=== PATIENT | female | born 1975 | race Caucasian/White ===

== ENCOUNTER 2021-07-18 18:32 | Inpatient (IN) | payer MEDICAID, OTHER, SELFPAY ==
--- NOTE | 2021-07-18 19:10 | ED_ITS ---
HPI - Psych General Chief Complaint: Psychiatric Symptoms Stated Complaint: crisis suicidal Time Seen by Provider: 07/18/21 19:10 Source: patient Mode of arrival: ambulatory Limitations: no limitations History of Present Illness MD complaint: suicidal ideation and feels depressed Onset (ago): week(s) Duration: getting worse History of same: Yes Relieving factors: none Exacerbating factors: none Context: other (states she went for a ketamine infusion [place] today that made it worse) Associated psychiatric symptoms: depression and suicidal ideation Associated symptoms: denies other symptoms Treatments prior to arrival: none and other (Ketamine infusion in [place]) If self harm: admits thoughts of self harm Related Data Home Medications Medication Instructions Recorded Confirmed dextroamphetamine 5 mg tablet 7.5 mg PO QAM 07/18/21 07/18/21 duloxetine 30 mg capsule,delayed 30 mg PO DAILY 07/18/21 07/18/21 release lithium carbonate 150 mg capsule 150 mg PO BEDTIME 07/18/21 07/18/21 propranolol 10 mg tablet 1 tab PO BID PRN 07/18/21 07/18/21 trazodone 50 mg tablet 100 mg PO BEDTIME 07/18/21 07/18/21 vortioxetine 20 mg tablet 1 tab PO DAILY 07/18/21 07/18/21 (Trintellix) Allergies Allergy/AdvReac Type Severity Reaction Status Date / Time nortriptyline [NORTRIPTYLINE] Allergy Unknown RASH Unverified 06/10/20 16:45 Review of Systems Review of Systems: Constitutional : No Fever, No Chills ENT/Mouth : No Ear Pain, No Nasal Congestion, No sore throat Eyes: No Eye Pain, No Swelling, No Redness Cardiovascular : No Chest Pain, No SOB Respiratory : No Cough, No Sputum, No Dyspnea Gastrointestinal : No Nausea, No Vomiting, No Diarrhea, No Hematochezia, No Melena Genitourinary : No Dysuria, No Urinary Frequency, No Hematuria Musculoskeletal : No Myalgias Skin : No Skin Lesions, No rash Neuro : No Weakness, No Numbness, No Paresthesias, No Dizziness, No Headache Psych : positive Anxiety, positive Depression, positive SI no HI Heme/Lymph: No Lymphadenopathy Endocrine : No Polyuria, No Polydipsia All other systems reviewed and are negative PMFSH Social History Social History Advance Directives: No Advance Directives Information Provided: No Patient : No Physical Exam Vital Signs: Vital Signs: Last Vital Signs Temp 99 F 07/18/21 19:17 Pulse 94 07/18/21 19:17 Resp 19 07/18/21 19:17 BP 116/90 H 07/18/21 19:17 Pulse Ox 99 07/18/21 19:17 Body Mass Index 22.6 Appearance: Alert. Oriented X3. No acute distress. Eyes: Pupils equal, round and reactive to light. ENT: Pharynx normal. Neck: Normal inspection. Neck supple. CVS: Normal heart rate and rhythm. Pulses normal. Respiratory: No respiratory distress. Breath sounds normal. Abdomen: Soft and nontender. Skin: Skin warm and dry. Normal skin color. Normal skin turgor. Extremities: No lower extremity edema. No calf ttp Neuro: Oriented X 3. No motor deficit. No sensory deficit. CN 2-12 intact Psych: anxious agitated, reports SI Course Reevaluation(s) Reevaluation #1: Physician observation started at 2024. Patient placed in physician observation because the patient needed more time for medication to work and to see N and be evaluated for the need for psych admission. At the time observation was started the patient's vitals were stable, patient is alert and oriented cooperative Neuro: nonfocal, CV RRR, Lungs clear MDM - Psych MDM Narrative Medical decision making narrative: 46 yo female here with depression and SI - will need labs and N consult, she denies medical complaints Lab Data Result diagrams: 07/18/21 19:58 07/18/21 19:58 Labs: Lab Results 07/18/21 07/18/21 07/18/21 Range/Units 19:33 19:34 19:34 WBC (4.8-10.8) X10*3/uL RBC (4.20-5.50) X10*6/uL Hgb (12.0-16.0) g/dl Hct (37-47) % MCV (80-98) fL MCH (27.0-33.0) pg MCHC (31.0-35.0) g/dl RDW (11.0-16.0) % Plt Count (160-400) X10*3/uL MPV (9.4-12.3) fL Immature Gran % (Auto) (0.0-0.4) % Neut % (Auto) (45-73) % Lymph % (Auto) (20-40) % [place] % (Auto) (2-11) % Eos % (Auto) (0-4) % Baso % (Auto) (0-2) % Lymph # (Auto) (1.2-4.9) X10*3/uL [place] # (Auto) (0.1-1.2) X10*3/uL Eos # (Auto) (0.0-0.4) X10*3/uL Baso # (Auto) (0.0-0.2) X10*3/uL Abs Immat Gran (auto) (0.00-0.03) X10*3/uL Absolute Neuts (auto) (2.0-8.3) X10*3/uL Absolute Nucleated RBC (0.0-0.012) X10*3/uL Nucleated RBC % (auto) (0.0-0.2) /100WBC Sodium (135-145) mmol/L Potassium (3.3-5.1) mmol/L Chloride (96-108) mmol/L Carbon Dioxide (22-29) mmol/L Anion Gap (12-20) BUN (9-16) mg/dL Creatinine (0.5-1.4) mg/dL Estim Creat Clear Calc Estimated GFR Random Glucose (60-115) mg/dL Calcium (8.4-10.2) mg/dL Magnesium (1.6-2.6) mg/dL Total Bilirubin (0.0-1.0) mg/dL Direct Bilirubin (0.0-0.5) mg/dL AST (5-31) U/L ALT (0-31) U/L Alkaline Phosphatase (39-117) U/L Total Protein (6.5-8.0) g/dL Albumin (3.5-5.0) g/dL Urine Color Urine Appearance Urine pH (5.0-8.0) Ur Specific [place] (1.005-1.025) Urine Protein (NEG-TRACE) MG/DL Urine Glucose (UA) (NEG) MG/DL Urine Ketones (NEG) MG/DL Urine Blood (NEG) Urine Nitrite (NEG) Ur Leukocyte Esterase (NEG) Urine RBC (0) /HPF Urine WBC (0-4) /HPF Ur Squamous Epith Cells /LPF Urine Bacteria /LPF Urine Test NEGATIVE (NEGATIVE) Urine Opiates Screen Not Detected (Not Detect) Urine Fentanyl Screen Not Detected (Not Detect) Ur Barbiturates Screen Not Detected (Not Detect) Ur Phencyclidine Scrn Not Detected (Not Detect) Ur Amphetamines Screen POSITIVE H (Not Detect) U Benzodiazepines Scrn POSITIVE H (Not Detect) Sundown (0.60-1.20) mmol/L Urine Cocaine Screen Not Detected (Not Detect) U Marijuana (THC) Screen Not Detected (Not Detect) Ethyl Alcohol mg/dL COVID-19 ([facility]) Negative (Negative) COVID-19 Clin Com See Note 07/18/21 07/18/21 07/18/21 Range/Units 19:34 19:58 19:58 WBC 10.6 (4.8-10.8) X10*3/uL RBC 4.14 L (4.20-5.50) X10*6/uL Hgb 13.6 (12.0-16.0) g/dl Hct 39.3 (37-47) % MCV 94.9 (80-98) fL MCH 32.9 (27.0-33.0) pg MCHC 34.6 (31.0-35.0) g/dl RDW 11.5 (11.0-16.0) % Plt Count 275 (160-400) X10*3/uL MPV 9.2 L (9.4-12.3) fL Immature Gran % (Auto) 0.3 (0.0-0.4) % Neut % (Auto) 73.4 H (45-73) % Lymph % (Auto) 18.4 L (20-40) % [place] % (Auto) 7.0 (2-11) % Eos % (Auto) 0.5 (0-4) % Baso % (Auto) 0.4 (0-2) % Lymph # (Auto) 2.0 (1.2-4.9) X10*3/uL [place] # (Auto) 0.8 (0.1-1.2) X10*3/uL Eos # (Auto) 0.1 (0.0-0.4) X10*3/uL Baso # (Auto) 0.0 (0.0-0.2) X10*3/uL Abs Immat Gran (auto) 0.03 (0.00-0.03) X10*3/uL Absolute Neuts (auto) 7.8 (2.0-8.3) X10*3/uL Absolute Nucleated RBC 0.000 (0.0-0.012) X10*3/uL Nucleated RBC % (auto) 0.0 (0.0-0.2) /100WBC Sodium 135 (135-145) mmol/L Potassium 4.0 (3.3-5.1) mmol/L Chloride 104 (96-108) mmol/L Carbon Dioxide 21 L (22-29) mmol/L Anion Gap 14 (12-20) BUN 10 (9-16) mg/dL Creatinine 0.98 (0.5-1.4) mg/dL Estim Creat Clear Calc 54.1 Estimated GFR > 60 Random Glucose 125 H (60-115) mg/dL Calcium 9.2 (8.4-10.2) mg/dL Magnesium 2.3 (1.6-2.6) mg/dL Total Bilirubin 0.3 (0.0-1.0) mg/dL Direct Bilirubin < 0.2 (0.0-0.5) mg/dL AST 17 (5-31) U/L ALT 11 (0-31) U/L Alkaline Phosphatase 70 (39-117) U/L Total Protein 6.9 (6.5-8.0) g/dL Albumin 4.3 (3.5-5.0) g/dL Urine Color YELLOW Urine Appearance CLEAR Urine pH 6.0 (5.0-8.0) Ur Specific [place] 1.020 (1.005-1.025) Urine Protein NEG (NEG-TRACE) MG/DL Urine Glucose (UA) NEG (NEG) MG/DL Urine Ketones NEG (NEG) MG/DL Urine Blood 1+ H (NEG) Urine Nitrite NEG (NEG) Ur Leukocyte Esterase NEG (NEG) Urine RBC 1-4 (0) /HPF Urine WBC 0 (0-4) /HPF Ur Squamous Epith Cells 1+ /LPF Urine Bacteria 1+ /LPF Urine Test (NEGATIVE) Urine Opiates Screen (Not Detect) Urine Fentanyl Screen (Not Detect) Ur Barbiturates Screen (Not Detect) Ur Phencyclidine Scrn (Not Detect) Ur Amphetamines Screen (Not Detect) U Benzodiazepines Scrn (Not Detect) Sundown (0.60-1.20) mmol/L Urine Cocaine Screen (Not Detect) U Marijuana (THC) Screen (Not Detect) Ethyl Alcohol mg/dL COVID-19 ([facility]) (Negative) COVID-19 Clin Com 07/18/21 07/18/21 Range/Units 19:58 19:58 WBC (4.8-10.8) X10*3/uL RBC (4.20-5.50) X10*6/uL Hgb (12.0-16.0) g/dl Hct (37-47) % MCV (80-98) fL MCH (27.0-33.0) pg MCHC (31.0-35.0) g/dl RDW (11.0-16.0) % Plt Count (160-400) X10*3/uL MPV (9.4-12.3) fL Immature Gran % (Auto) (0.0-0.4) % Neut % (Auto) (45-73) % Lymph % (Auto) (20-40) % [place] % (Auto) (2-11) % Eos % (Auto) (0-4) % Baso % (Auto) (0-2) % Lymph # (Auto) (1.2-4.9) X10*3/uL [place] # (Auto) (0.1-1.2) X10*3/uL Eos # (Auto) (0.0-0.4) X10*3/uL Baso # (Auto) (0.0-0.2) X10*3/uL Abs Immat Gran (auto) (0.00-0.03) X10*3/uL Absolute Neuts (auto) (2.0-8.3) X10*3/uL Absolute Nucleated RBC (0.0-0.012) X10*3/uL Nucleated RBC % (auto) (0.0-0.2) /100WBC Sodium (135-145) mmol/L Potassium (3.3-5.1) mmol/L Chloride (96-108) mmol/L Carbon Dioxide (22-29) mmol/L Anion Gap (12-20) BUN (9-16) mg/dL Creatinine (0.5-1.4) mg/dL Estim Creat Clear Calc Estimated GFR Random Glucose (60-115) mg/dL Calcium (8.4-10.2) mg/dL Magnesium (1.6-2.6) mg/dL Total Bilirubin (0.0-1.0) mg/dL Direct Bilirubin (0.0-0.5) mg/dL AST (5-31) U/L ALT (0-31) U/L Alkaline Phosphatase (39-117) U/L Total Protein (6.5-8.0) g/dL Albumin (3.5-5.0) g/dL Urine Color Urine Appearance Urine pH (5.0-8.0) Ur Specific [place] (1.005-1.025) Urine Protein (NEG-TRACE) MG/DL Urine Glucose (UA) (NEG) MG/DL Urine Ketones (NEG) MG/DL Urine Blood (NEG) Urine Nitrite (NEG) Ur Leukocyte Esterase (NEG) Urine RBC (0) /HPF Urine WBC (0-4) /HPF Ur Squamous Epith Cells /LPF Urine Bacteria /LPF Urine Test (NEGATIVE) Urine Opiates Screen (Not Detect) Urine Fentanyl Screen (Not Detect) Ur Barbiturates Screen (Not Detect) Ur Phencyclidine Scrn (Not Detect) Ur Amphetamines Screen (Not Detect) U Benzodiazepines Scrn (Not Detect) Sundown < 0.10 L (0.60-1.20) mmol/L Urine Cocaine Screen (Not Detect) U Marijuana (THC) Screen (Not Detect) Ethyl Alcohol < 10 mg/dL COVID-19 ([facility]) (Negative) COVID-19 Clin Com Discharge Plan Discharge Clinical Impression: Depression Qualifiers: Depression Type: unspecified Qualified Code(s): F32.A - Depression, unspecified Prescriptions: No Action dextroamphetamine 5 mg tablet 7.5 mg PO QAM RF: 0 trazodone 50 mg tablet 100 mg PO BEDTIME RF: 0 lithium carbonate 150 mg capsule 150 mg PO BEDTIME RF: 0 propranolol 10 mg tablet 1 tab PO BID PRN (Reason: Anxiety) RF: 0 duloxetine 30 mg capsule,delayed release(DR/EC) 30 mg PO DAILY RF: 0 Trintellix 20 mg tablet 1 tab PO DAILY RF: 0
[2021-07-18 19:17] VITALS: BP 116/90; PULSE 94; RESP 19; TEMP 37.2; O2SAT 99; BMI 22.6
[2021-07-18 19:48] LABS: Appearance Urine CLEAR; Color Urine YELLOW; Glucose Urine UA NEG (NEG); Leukocyte Esterase Urine NEG (NEG); Nitrite Urine NEG (NEG); UACC Culture Trigger NO; Urine Blood 1+ (NEG); Urine Ketones NEG (NEG); Urine Protein NEG (NEG-TRACE)
[2021-07-18 19:51] LABS: UPreg QC Valid YES; Urine Pregnancy NEGATIVE (NEGATIVE)
[2021-07-18 19:57] LABS: Bacteria Urine 1+ /LPF; Squamous Epithelial Cell Urine 1+ /LPF; WBC Urine 0 /HPF (0-4)
[2021-07-18 20:02] LABS: Amphetamine Screen Urine POSITIVE (Not Detect); Barbiturates, Urine Not Detected (Not Detect); Benzodiazepines Screen Urine POSITIVE (Not Detect); COVID-19 Test Negative (Negative); Cannabinoid Screen Urine Not Detected (Not Detect); Cocaine Screen Urine Not Detected (Not Detect); Fentanyl, urine Not Detected (Not Detect); IDNOW Serial# 08D9AD1C; Opiate Screen Urine Not Detected (Not Detect); Phencyclidine Screen Urine Not Detected (Not Detect)
[2021-07-18 20:03] LABS: MANUAL DIFF FLAG NO
[2021-07-18 20:05] LABS: Basophils Percent Auto 0.4 % (0-2); Eosinophils Absolute Auto 0.1 X10*3/uL (0.0-0.4); Eosinophils Percent Auto 0.5 % (0-4); Hematocrit 39.3 % (37-47); Hemoglobin 13.6 g/dl (12.0-16.0); Imm Gran Abs Auto 0.03 X10*3/uL (0.00-0.03); Imm Gran Pct Auto 0.3 % (0.0-0.4); Lymphocytes Percent Auto 18.4 % (20-40); Mean Corpuscular HGB Conc 34.6 g/dl (31.0-35.0); Mean Corpuscular Hemoglobin 32.9 pg (27.0-33.0); Mean Corpuscular Volume 94.9 fL (80-98); Mean Platelet Volume 9.2 fL (9.4-12.3); Monocytes Absolute Auto 0.8 X10*3/uL (0.1-1.2); Neutrophils Absolute Auto 7.8 X10*3/uL (2.0-8.3); Neutrophils Percent Auto 73.4 % (45-73); Platelet Count 275 X10*3/uL (160-400); Red Blood Count 4.14 X10*6/uL (4.20-5.50); Red Cell Distribution Width 11.5 % (11.0-16.0); White Blood Count 10.6 X10*3/uL (4.8-10.8)
[2021-07-18 20:15] LABS: Ethanol < 10 mg/dL; Lithium < 0.10 mmol/L (0.60-1.20)
[2021-07-18 20:19] LABS: Alanine Aminotransferase 11 U/L (0-31); Albumin Level 4.3 g/dL (3.5-5.0); Alkaline Phosphatase 70 U/L (39-117); Anion Gap 14 (12-20); Aspartate Amino Transferase 17 U/L (5-31); Bilirubin Direct < 0.2 mg/dL (0.0-0.5); Bilirubin Total 0.3 mg/dL (0.0-1.0); Blood Urea Nitrogen 10 mg/dL (9-16); Calcium 9.2 mg/dL (8.4-10.2); Carbon Dioxide 21 mmol/L (22-29); Chloride 104 mmol/L (96-108); Creatinine Clr Calc Pharmacy 54.1; Estimated Glomerular Filt Rate > 60; Glucose Random 125 mg/dL (60-115); Magnesium 2.3 mg/dL (1.6-2.6); Sodium 135 mmol/L (135-145); Total Protein 6.9 g/dL (6.5-8.0)
[2021-07-18 20:39] LABS: Thyroid Stimulating Hormone 1.98 uIU/mL (0.32-4.0)
[2021-07-18] MEDS: traZODone HCL 100 MG TABLET PO (21:25)
[2021-07-18] MEDS: Lithium Carbonate 300 MG TABLET 150 MG PO (21:25)
[2021-07-19 02:11] VITALS: BP 125/84; PULSE 109; RESP 17; TEMP 36.8; O2SAT 98
--- NOTE | 2021-07-19 04:44 | PC.NURSE ---
Patient is currently appears sleeping, mood flat, behavior non concerning at this time, medication compliant here, [place] was <0.10, compliant with N evaluation, deposition section 12 inpatient bed search, VSS, will continue to monitor.
[2021-07-19] MEDS: clonazePAM 0.5 MG TABLET PO (04:55)
--- NOTE | 2021-07-19 08:31 | PC.NURSE ---
Pt waking, seen curled in position. This RN to room. Pt able to hold conversation, states she's hungry. Also stating that she wants only to go [facility]. This RN giving patient update that CARE team thinks it's likely she'll go to [facility] but that plan is not fully complete. Breakfast tray brought. Pt also looking through snacks brought by Mom which are in bag in laundry room. Pt is calm. States that she still feels suicidal.
[2021-07-19 09:11] VITALS: BP 120/81; PULSE 81; RESP 15; O2SAT 99
--- NOTE | 2021-07-19 09:11 | PC.NURSE ---
Pt has not eaten. States she'll try to eat so she doesn't take am meds on empty stomach.
--- NOTE | 2021-07-19 09:12 | PC.NURSE ---
Pt also requesting more klonapin because she feels like i'm about to freak out . Radha [employer] MANAGER aware and will order standing PRN med.
[2021-07-19] MEDS: DULoxetine HCl 30 MG CAPSULE.DR PO (09:26)
[2021-07-19] MEDS: Vortioxetine Hydrobromide 20 MG TABLET PO (09:27)
[2021-07-19] MEDS: Dextroamphetamine Sulfate 5 MG TABLET 7.5 MG PO (09:28)
[2021-07-19] MEDS: LORazepam 1 MG TABLET PO ×2 (09:45→15:40)
--- NOTE | 2021-07-19 10:33 | PC.NURSE ---
Pt has been resting queitly in room since ZACH khalil. This RN telling her that she's accepted on [facility] and states she's relieved.
--- NOTE | 2021-07-19 15:15 | PC.NURSE ---
KAYCEE to KAYCEE hobson on [facility]
--- NOTE | 2021-07-19 15:24 | PC.NURSE ---
Pt has been crying in her room. States she's been unable to cry for so long and is relieved to be crying. Talked to this RN for a long time about many changes recently and her sense of failing . Is aware that she'll go to [facility] soon.
--- NOTE | 2021-07-19 15:33 | ECG_ITS ---
Test Reason : qtc prolongation Blood Pressure : / mmHG Vent. Rate : 075 BPM Atrial Rate : 075 BPM P-R Int : 100 ms QRS Dur : 108 ms QT Int : 376 ms P-R-T Axes : 039 067 048 degrees QTc Int : 419 ms Sinus rhythm with short IN Otherwise normal ECG When compared with ECG of 12-JUL-2019 10:20, No significant change was found Referred By: Mavis Nowak Electronically Signed By:RENA ROBERTSON MD
[2021-07-19 18:00] VITALS: BP 118/92; PULSE 90; TEMP 37.2
--- NOTE | 2021-07-19 18:02 | PC.ADMIT ---
Pt is a 46 year female who presents to [facility] from [facility] at approx 1600 on a cv status. Pt is covid -. Utox+ for benzos and amphetamines. Pt has a therapist, psychiatrists and a PCP provider. Pt mentioned during admission just tried ketamine and it did not go well . Pt mentioned that she ended a new relationship and ended a new job. per chart review, pt presented to [facility] secondary to endorsing SI with plan to cut herself. Pt denied SI/HI/VH/AH during admit. Pt reported poor sleep and coping skills. Pt mentioned that she came into the hospital to see DR. Post and because she had thoughts that she might kill herself if she did not come into the hospital. Pt is diagnosed with major depressive disorder, recurrent episode, severe and borderline personality disorder. Pt denied having any trauma hx. Provider was called and notified of admission. Start treatment plan and monitor for safety.
[2021-07-19] MEDS: Lithium Carbonate 300 MG TABLET 150 MG PO (20:52)
[2021-07-19] MEDS: traZODone HCL 50 MG TABLET 150 MG PO (20:52)
[2021-07-20 06:00] VITALS: BP 99/54; PULSE 70; TEMP 36.2; O2SAT 98
[2021-07-20] MEDS: clonazePAM 0.5 MG TABLET PO (09:37)
[2021-07-20] MEDS: Dextroamphetamine Sulfate 5 MG TABLET 7.5 MG PO (09:40)
[2021-07-20] MEDS: DULoxetine HCl 30 MG CAPSULE.DR PO (10:25)
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
[2021-07-20 13:01] LABS: Estimated Average Glucose 97 mg/dL
[2021-07-20 13:02] LABS: Cholesterol 191 mg/dL; HDL Cholesterol 47 mg/dL; LDL Cholesterol Calculated 112 mg/dl; Triglycerides 160 mg/dL
[2021-07-20] MEDS: Vortioxetine Hydrobromide 20 MG TABLET PO (13:23)
[2021-07-20 13:43] LABS: Folate > 20.0 ng/mL (> or = 4.0); Vitamin B12 534 pg/mL (200-900)
[2021-07-20 18:00] VITALS: BP 111/64; PULSE 72
[2021-07-20] MEDS: Lithium Carbonate 300 MG TABLET 150 MG PO (21:10)
[2021-07-20] MEDS: hydrOXYzine HCL 25 MG TABLET PO (21:11)
[2021-07-21] MEDS: traZODone HCL 50 MG TABLET 150 MG PO ×2 (02:26→21:04)
[2021-07-21] MEDS: clonazePAM 0.5 MG TABLET PO (08:22)
[2021-07-21] MEDS: Dextroamphetamine Sulfate 5 MG TABLET 7.5 MG PO (11:09)
[2021-07-21] MEDS: DULoxetine HCl 30 MG CAPSULE.DR PO (11:09)
[2021-07-21] MEDS: Vortioxetine Hydrobromide 20 MG TABLET PO (11:09)
[2021-07-21 11:20] VITALS: BP 98/62; PULSE 95; RESP 18; TEMP 36.5; O2SAT 99
--- NOTE | 2021-07-21 13:54 | P.PNPSI_ITS ---
Subjective Subjective Date of Service: 07/21/21 Reason For Visit: depression, SI Interim History: met with patient and her mother Melissa (who is a therapist) pt remains severely anxious, plagued by worry about medications, whether she'll get better. Passive SI no intent or plans. Pt showed magazine writer her copious notes of past medication trials. Pt and mother both report she seemed to be doing better in winter 2020 on Lamictal 50mg, cymbalta 30mg (was 60mg but caused night sweats), some ativan...she got into a relationship, felt good and only got depressed and suicidal when relationship ended this past May. magazine writer and family discussed medication options going forward however, patient could not stop anxiously vacillating between decisions, wanting to hear numerous times why this med instead of that one, repeating questions about this side- effect, lot's of what if...Pt agreed to restart and titrate Lamictal. Gasket Supervisor agreed to confer with her outpt provider dr. Garner. magazine writer considering Lexapro, titrating to higher doses and getting off cymbalta/vortioxetine Both Pt and mother both acknowledged that patients OCD/ANANDA interfered with making medications decisions and that this will need to be addressed for med management is possible. Mental Status Exam Mental Status Exam Narrative: Pt is alert and oriented; behavior is cooperative; dressed in casual attire with unkempt hair but adequate hygiene; mood is described as depressed and anxious with anxious affect, intermittently tearful; eye contact appropriate; Speech is normal rate, volume and prosody and not pressured; no psychomotor agitation/retardation present; thought process is organized, linear and goal directed but gets sidelined by relentless worries such as what medication to take...? Did she make the right decision about whatever...Thought content is on tx; persevarates on various worries; however, TC is pertinent to relevant topics and without any delusional content, paranoid ideations or grandi osity; SI, currently passive; no HI; No AVH and no evidence of perceptual disturbance. ?Patients insight and judgment are impaired. Diagnostics Vital Signs (24Hr): Vital Signs - 24 hr 07/20/21 18:00 07/21/21 11:20 Temperature 97.7 F Pulse Rate 72 95 Respiratory Rate 18 Blood Pressure 111/64 98/62 Pulse Oximetry 99 Body Mass Index 22.6 Labs Results: 07/18/21 19:58 07/18/21 19:58 Labs: Laboratory Results - last 48 hr 07/20/21 07/20/21 07/20/21 12:37 12:37 12:37 Estimat Average Glucose 97 Hemoglobin A1c % 5.0 Triglycerides 160 Cholesterol 191 LDL Cholesterol, Calc 112 HDL Cholesterol 47 Vitamin B12 534 Folate > 20.0 Free T4 1.50 Medications Medications Current Medications Acetaminophen (Acetaminophen 325 Mg Tablet) 650 mg PO Q6H PRN PRN Reason: Headache/Pain Mild Scale (1-3) Al Hydroxide/Mg Hydroxide (Magnesium Hydrox/Alum Hydrox 30 Ml Oral.Susp) 30 ml PO Q6H PRN PRN Reason: Heartburn/Nausea Clonazepam (Clonazepam 0.5 Mg Tablet) 0.5 mg PO BID PRN PRN Reason: Anxiety Last Admin: 07/21/21 08:22 Dose: 0.5 mg Documented by: Dextroamphetamine Sulfate (Dextroamphetamine Sulfate 5 Mg Tablet) 7.5 mg PO DAILY [facility] Last Admin: 07/21/21 11:09 Dose: 7.5 mg Documented by: Duloxetine HCl (Duloxetine Hcl 30 Mg Capsule.Dr) 30 mg PO DAILY [facility] Last Admin: 07/21/21 11:09 Dose: 30 mg Documented by: Hydroxyzine HCl (Hydroxyzine Hcl 25 Mg Tablet) 25 mg PO BEDTIME PRN PRN Reason: Anxiety Last Admin: 07/20/21 21:11 Dose: 25 mg Documented by: Lamotrigine (Lamotrigine 25 Mg Tablet) 25 mg PO DAILY [facility] [place] Carbonate ([place] Carbonate 300 Mg Tablet) 150 mg PO BEDTIME [facility] Last Admin: 07/20/21 21:10 Dose: 150 mg Documented by: Magnesium Hydroxide (Milk Of Magnesia 30 Ml Oral.Susp) 30 ml PO DAILY PRN PRN Reason: Constipation Propranolol HCl (Propranolol Hcl 10 Mg Tablet) 10 mg PO BID PRN; Protocol PRN Reason: Anxiety Trazodone HCl (Trazodone Hcl 50 Mg Tablet) 150 mg PO BEDTIME [facility] Last Admin: 07/21/21 02:26 Dose: 150 mg Documented by: Vortioxetine (Vortioxetine Hydrobromide 20 Mg Tablet) 20 mg PO DAILY [facility] Last Admin: 07/21/21 11:09 Dose: 20 mg Documented by: Allergies Allergies Allergy/AdvReac Type Severity Reaction Status Date / Time nortriptyline [NORTRIPTYLINE] Allergy Unknown RASH Verified 07/20/21 10:56 Assessment & Plan Assessment & Plan (1) ANANDA (generalized anxiety disorder): Status: Acute Code(s): F41.1 - Generalized anxiety disorder (2) OCD (obsessive compulsive disorder): Status: Acute Code(s): F42.9 - Obsessive-compulsive disorder, unspecified (3) MDD (major depressive disorder), recurrent episode, severe: Status: Acute Code(s): F33.2 - Major depressive disorder, recurrent severe without psychotic features Assessment and Plan: IMPRESSION: Patient is a bright, resilient 46-year-old female with history of ANANDA, OCD, depression intermittent SI who presents for worsening anxiety depression and SI. Patient is currently to tortured by endless worrying which causing her much anguish and difficulty when trying to make a decision.? She is currently depressed with passive SI however expresses that she got closer than ever before to attempting suicide.? Patient is open to medication management and also has insight to know that her OCD/anxiety interferes with her ability to make decisions and to tolerate medications long enough to get to a therapeutic dose and duration.? However this insight is often dwarfed by her powerful anxious feelings, clearly evident in discussions.? Hospital Course/reasoning: -patient remains tormented by severe anxiety which has triggered depression and suicidality.? Patient perseverates on how she cannot live this way and is struggling to Hope that should get better, sometimes wondering if suicide will be the only way out of this trap her anxiety places in; she does not want to kill herself but cannot envision living with this constant anxiety.? That said she is willing to engage in both therapy and medication management strategy -Both Pt and mother both acknowledged that patients OCD/ANANDA interfered with making medications decisions and that this will need to be addressed for med management is possible.? PLAN: Patient on CV Q 15 minutes checks for safety -Start lamictal Pt agreed to restart and titrate Lamictal. Gasket Supervisor agreed to confer with her outpt provider dr. Garner. Considering Lexapro, titrating to higher doses and getting off cymbalta/vortioxetine? I spent minutes with the patient and/or on the patient floor today, greater than?50% of which was spent counseling/coordinating care. Reason for contiued inpatient stay Substantial Risk for: inability to function and med/psych decompensation
[2021-07-21] MEDS: clonazePAM 0.5 MG TABLET 0.25 MG PO (14:31)
[2021-07-21] MEDS: lamoTRIgine 25 MG TABLET PO (14:32)
[2021-07-21 19:50] VITALS: BP 104/64; PULSE 70; RESP 16; TEMP 36.1; O2SAT 98
[2021-07-21] MEDS: Lithium Carbonate 300 MG TABLET 150 MG PO (21:05)
[2021-07-21] MEDS: hydrOXYzine HCL 25 MG TABLET PO (21:05)
[2021-07-22] MEDS: clonazePAM 0.5 MG TABLET 0.25 MG PO ×2 (08:46→15:21)
[2021-07-22] MEDS: lamoTRIgine 25 MG TABLET PO (09:17)
[2021-07-22] MEDS: Dextroamphetamine Sulfate 5 MG TABLET 7.5 MG PO (09:17)
--- NOTE | 2021-07-22 10:13 | HO.PSYCHPN ---
Subjective Subjective Date of Service: 07/22/21 Reason For Visit: depression, SI Interim History: pt seen on 07/22 ghost writer discussed case with patients outpt provider, Dr. Garner who does not think pt was actually doing better on med regiment discussed, but only really improved when she got into a relationship; he agrees with plan to start her on Lexapro, lamictal, and discontinuing vortioxetine, cymbalta. Discussed this with patient who agrees that it's likely true, she got better not do to meds (which are mostly below therapetuic levels) but because of being in a relationship. She agrees with plan, though she is nearly derailed with ambivalence. Mental Status Exam Mental Status Exam Narrative: Pt is alert and oriented; behavior is cooperative; dressed in casual attire with unkempt hair but adequate hygiene; mood is described as depressed and anxious with anxious affect, intermittently tearful; eye contact appropriate; Speech is normal rate, volume and prosody and not pressured; no psychomotor agitation/retardation present; thought process is organized, linear and goal directed but gets sidelined by relentless worries such as what medication to take...? Did she make the right decision about whatever...Thought content is on tx;? persevarates on various worries; however, TC is pertinent to relevant topics and without any delusional content, paranoid ideations or grandiosity; SI, currently passive; no HI; No AVH and no evidence of perceptual disturbance. ?Patients insight and judgment are impaired. Diagnostics Vital Signs (24Hr): Vital Signs - 24 hr 07/21/21 11:20 07/21/21 19:50 Temperature 97.7 F 97.0 F Pulse Rate 95 70 Respiratory Rate 18 16 Blood Pressure 98/62 104/64 Pulse Oximetry 99 98 Body Mass Index 22.6 Labs Results: 07/18/21 19:58 07/18/21 19:58 Labs: Laboratory Results - last 48 hr 07/20/21 07/20/21 07/20/21 12:37 12:37 12:37 Estimat Average Glucose 97 Hemoglobin A1c % 5.0 Triglycerides 160 Cholesterol 191 LDL Cholesterol, Calc 112 HDL Cholesterol 47 Vitamin B12 534 Folate > 20.0 Free T4 1.50 Medications Medications Current Medications Acetaminophen (Acetaminophen 325 Mg Tablet) 650 mg PO Q6H PRN PRN Reason: Headache/Pain Mild Scale (1-3) Al Hydroxide/Mg Hydroxide (Magnesium Hydrox/Alum Hydrox 30 Ml Oral.Susp) 30 ml PO Q6H PRN PRN Reason: Heartburn/Nausea Clonazepam (Clonazepam 0.5 Mg Tablet) 0.25 mg PO TID [facility] Last Admin: 07/22/21 08:46 Dose: 0.25 mg Documented by: Dextroamphetamine Sulfate (Dextroamphetamine Sulfate 5 Mg Tablet) 7.5 mg PO DAILY [facility] Last Admin: 07/22/21 09:17 Dose: 7.5 mg Documented by: Duloxetine HCl (Duloxetine Hcl 30 Mg Capsule.Dr) 30 mg PO DAILY [facility] Last Admin: 07/21/21 11:09 Dose: 30 mg Documented by: Hydroxyzine HCl (Hydroxyzine Hcl 25 Mg Tablet) 25 mg PO BEDTIME [facility] Last Admin: 07/21/21 21:05 Dose: 25 mg Documented by: Lamotrigine (Lamotrigine 25 Mg Tablet) 25 mg PO DAILY [facility] Last Admin: 07/22/21 09:17 Dose: 25 mg Documented by: [place] Carbonate ([place] Carbonate 300 Mg Tablet) 150 mg PO BEDTIME [facility] Last Admin: 07/21/21 21:05 Dose: 150 mg Documented by: Magnesium Hydroxide (Milk Of Magnesia 30 Ml Oral.Susp) 30 ml PO DAILY PRN PRN Reason: Constipation Propranolol HCl (Propranolol Hcl 10 Mg Tablet) 10 mg PO BID PRN; Protocol PRN Reason: Anxiety Trazodone HCl (Trazodone Hcl 50 Mg Tablet) 150 mg PO BEDTIME [facility] Last Admin: 07/21/21 21:04 Dose: 150 mg Documented by: Vortioxetine (Vortioxetine Hydrobromide 20 Mg Tablet) 20 mg PO DAILY [facility] Last Admin: 07/21/21 11:09 Dose: 20 mg Documented by: Allergies Allergies Allergy/AdvReac Type Severity Reaction Status Date / Time nortriptyline [NORTRIPTYLINE] Allergy Unknown RASH Verified 07/20/21 10:56 Assessment & Plan Assessment & Plan (1) ANANDA (generalized anxiety disorder): Status: Acute Code(s): F41.1 - Generalized anxiety disorder (2) OCD (obsessive compulsive disorder): Status: Acute Code(s): F42.9 - Obsessive-compulsive disorder, unspecified (3) MDD (major depressive disorder), recurrent episode, severe: Status: Acute Code(s): F33.2 - Major depressive disorder, recurrent severe without psychotic features Assessment and Plan: IMPRESSION: Patient is a bright, resilient 46-year-old female with history of ANANDA, OCD, depression intermittent SI who presents for worsening anxiety depression and SI. Patient is currently to tortured by endless worrying which causing her much anguish and difficulty when trying to make a decision. She is currently depressed with passive SI however expresses that she got closer than ever before to attempting suicide. Patient is open to medication management and also has insight to know that her OCD/anxiety interferes with her ability to make decisions and to tolerate medications long enough to get to a therapeutic dose and duration. However this insight is often dwarfed by her powerful anxious feelings, clearly evident in discussions. Hospital Course/reasoning: -patient remains tormented by severe anxiety which has triggered depression and suicidality. Patient perseverates on how she cannot live this way and is struggling to Hope that should get better, sometimes wondering if suicide will be the only way out of this trap her anxiety places in; she does not want to kill herself but cannot envision living with this constant anxiety. That said she is willing to engage in both therapy and medication management strategy -Patient agrees to medication plan which is to get on Lexapro and see if she can tolerate a high dose to better address her OCD/ANANDA symptoms; will also titrate Lamictal since it helps with both depression and emotional lability. Will taper off Cymbalta and Trintellix; patient has traditionally had a hard time getting off Cymbalta so will taper it slowly while increasing Lexapro. Plan is to DC lithium PLAN: Patient on CV Q 15 minutes checks for safety START LEXAPRO 5 mg daily; Titrate to 10mg LOWER Cymbalta to 20 mg daily (down from 30) LOWER Trintellix to 5 MG daily (was on 10mg for a few months; only been on 20mg for week) Plan to DC lithium however will do that next week in order to minimize changes Clonazepam 0.25 mg p.r.n. for [id number]-de-wkwgwaue anxiety Clonazepam 0.5 mg p.r.n. for moderate to severe anxiety I spent minutes with the patient and/or on the patient floor today, greater than?50% of which was spent counseling/coordinating care. Reason for contiued inpatient stay Substantial Risk for: rapid decompensation and med/psych decompensation
[2021-07-22] MEDS: DULoxetine HCl 20 MG CAPSULE.DR PO (13:54)
[2021-07-22] MEDS: Escitalopram Oxalate 5 MG TABLET PO (15:01)
[2021-07-22] MEDS: Vortioxetine Hydrobromide 5 MG TABLET 10 MG PO (15:17)
[2021-07-22] MEDS: Vortioxetine Hydrobromide 10 MG TABLET PO (15:25)
[2021-07-22 20:16] VITALS: BP 115/67; PULSE 69; RESP 18; TEMP 36.5; O2SAT 100
[2021-07-22] MEDS: hydrOXYzine HCL 25 MG TABLET PO (20:22)
[2021-07-22] MEDS: Lithium Carbonate 300 MG TABLET 150 MG PO (20:22)
[2021-07-22] MEDS: traZODone HCL 50 MG TABLET 150 MG PO (20:22)
[2021-07-23 06:00] VITALS: BP 84/54; PULSE 58; RESP 16; TEMP 36.7; O2SAT 97
[2021-07-23] MEDS: Vortioxetine Hydrobromide 5 MG TABLET PO (09:12)
[2021-07-23] MEDS: Dextroamphetamine Sulfate 5 MG TABLET 7.5 MG PO (09:12)
[2021-07-23] MEDS: DULoxetine HCl 20 MG CAPSULE.DR PO (09:13)
[2021-07-23] MEDS: Escitalopram Oxalate 10 MG TABLET PO (09:13)
[2021-07-23] MEDS: lamoTRIgine 25 MG TABLET PO (09:13)
--- NOTE | 2021-07-23 09:30 | P.PNPSI_ITS ---
Subjective Subjective Date of Service: 07/23/21 Reason For Visit: depression, SI Subjective Notes: Conditional Voluntary Interim History: 07/22:met with patient and her mother Melissa (who is a therapist) pt remains severely anxious, plagued by worry about medications, whether she'll get better. Passive SI no intent or plans. Pt showed contract writer her copious notes of past medication trials. Pt and mother both report she seemed to be doing better in winter 2020 on Lamictal 50mg, cymbalta 30mg (was 60mg but caused night sweats), some ativan...she got into a relationship, felt good and only got depressed and suicidal when relationship ended this past May. contract writer and family discussed medication options going forward however, patient could not stop anxiously vacillating between decisions, wanting to hear numerous times why this med instead of that one, repeating questions about this side- effect, lot's of what if...Pt agreed to restart and titrate Lamictal. Linux Devops Engineer agreed to confer with her outpt provider dr. Garner. contract writer considering Lexapro, titrating to higher doses and getting off cymbalta/vortioxetine Both Pt and mother both acknowledged that patients OCD/ANANDA interfered with making medications decisions and that this will need to be addressed for med management is possible. 07/23: Perseverates re various meds. Identified OCD>> MDD. Showed me her detailed notes. Could not find her genomic profile. Medication Compliance: Yes Side effects from medications: No Review of Systems Acute medical concerns: No Review of Systems Review of Systems Constitutional : No Fever, No Chills ENT/Mouth : No Ear Pain, No Nasal Congestion, No sore throat Eyes: No Eye Pain, No Swelling, No Redness Cardiovascular : No Chest Pain, No SOB Respiratory : No Cough, No Sputum, No Dyspnea Gastrointestinal : No Nausea, No Vomiting, No Diarrhea, No Hematochezia, No Melena Genitourinary : No Dysuria, No Urinary Frequency, No Hematuria Musculoskeletal : No Myalgias Skin : No Skin Lesions, No rash Neuro : No Weakness, No Numbness, No Paresthesias, No Dizziness, No Headache Psych : positive Anxiety, positive Depression, positive SI no HI Heme/Lymph: No Lymphadenopathy Endocrine : No Polyuria, No Polydipsia All other systems reviewed and are negative Mental Status Exam Mental Status Exam Narrative: Pt is alert and oriented; behavior is cooperative; patient in anxious distress; dressed in casual attire with unkempt hair but adequate hygiene; mood is described as depressed and anxious with anxious affect, intermittently tearful, sometimes sobbing; eye contact appropriate; Speech is normal rate, volume and prosody and not pressured; no psychomotor agitation/retardation present; thought process is organized, linear and goal directed but gets sidelined by and less p erseveration on worries such as what medication to take... Did she make the right decision about substance such... Thought content is on tx; persevarates on various worries; overall pertinent to relevant topics and without any delusional content, paranoid ideations or grandiosity; SI, currently passive; no HI; No AVH and no evidence of perceptual disturbance. Patients insight and judgment are impaired. Diagnostics Vital Signs (24Hr): Vital Signs - 24 hr 07/22/21 20:16 07/23/21 06:00 Temperature 97.7 F 98.1 F Pulse Rate 69 58 Respiratory Rate 18 16 Blood Pressure 115/67 84/54 L Pulse Oximetry 100 97 Body Mass Index 22.6 Labs Results: 07/18/21 19:58 07/18/21 19:58 Medications Medications Current Medications Acetaminophen (Acetaminophen 325 Mg Tablet) 650 mg PO Q6H PRN PRN Reason: Headache/Pain Mild Scale (1-3) Al Hydroxide/Mg Hydroxide (Magnesium Hydrox/Alum Hydrox 30 Ml Oral.Susp) 30 ml PO Q6H PRN PRN Reason: Heartburn/Nausea Clonazepam (Clonazepam 0.5 Mg Tablet) 0.25 mg PO TID PRN PRN Reason: mild-moderate anxiety Last Admin: 07/22/21 15:21 Dose: 0.25 mg Documented by: Clonazepam (Clonazepam 0.5 Mg Tablet) 0.5 mg PO BID PRN PRN Reason: moderate-severe anxiety Dextroamphetamine Sulfate (Dextroamphetamine Sulfate 5 Mg Tablet) 7.5 mg PO DAILY [facility] [place] Last Admin: 07/23/21 09:12 Dose: 7.5 mg Documented by: Duloxetine HCl (Duloxetine Hcl 20 Mg Capsule.) 20 mg PO DAILY [facility] [place] Last Admin: 07/23/21 09:13 Dose: 20 mg Documented by: Escitalopram Oxalate (Escitalopram Oxalate 10 Mg Tablet) 10 mg PO DAILY [facility] [place] Last Admin: 07/23/21 09:13 Dose: 10 mg Documented by: Hydroxyzine HCl (Hydroxyzine Hcl 25 Mg Tablet) 25 mg PO BEDTIME [facility] [place] Last Admin: 07/22/21 20:22 Dose: 25 mg Documented by: Lamotrigine (Lamotrigine 25 Mg Tablet) 25 mg PO DAILY [facility] [place] Last Admin: 07/23/21 09:13 Dose: 25 mg Documented by: [place] Carbonate ([place] Carbonate 300 Mg Tablet) 150 mg PO BEDTIME [facility] [place] Last Admin: 07/22/21 20:22 Dose: 150 mg Documented by: Magnesium Hydroxide (Milk Of Magnesia 30 Ml Oral.Susp) 30 ml PO DAILY PRN PRN Reason: Constipation Propranolol HCl (Propranolol Hcl 10 Mg Tablet) 10 mg PO BID PRN; Protocol PRN Reason: Anxiety Trazodone HCl (Trazodone Hcl 50 Mg Tablet) 150 mg PO BEDTIME [facility] [place] Last Admin: 07/22/21 20:22 Dose: 150 mg Documented by: Vortioxetine (Vortioxetine Hydrobromide 5 Mg Tablet) 5 mg PO DAILY [facility] [place] Last Admin: 07/23/21 09:12 Dose: 5 mg Documented by: Vortioxetine (Vortioxetine Hydrobromide 5 Mg Tablet) 10 mg PO ONCE [facility] [place] Last Admin: 07/22/21 15:17 Dose: 10 mg Documented by: Allergies Allergies Allergy/AdvReac Type Severity Reaction Status Date / Time nortriptyline [NORTRIPTYLINE] Allergy Unknown RASH Verified 07/20/21 10:56 Assessment & Plan Assessment & Plan (1) ANANDA (generalized anxiety disorder): Status: Acute Code(s): F41.1 - Generalized anxiety disorder (2) OCD (obsessive compulsive disorder): Status: Acute Code(s): F42.9 - Obsessive-compulsive disorder, unspecified (3) MDD (major depressive disorder), recurrent episode, severe: Status: Acute Code(s): F33.2 - Major depressive disorder, recurrent severe without psychotic features Assessment and Plan: IMPRESSION: Patient is a bright, resilient 46-year-old female with history of ANANDA, OCD, depression intermittent SI who presents for worsening anxiety depression and SI. Patient is currently to tortured by endless worrying which causing her much anguish and difficulty when trying to make a decision. She is currently depressed with passive SI however expresses that she got closer than ever before to attempting suicide. Patient is open to medication management and also has insight to know that her OCD/anxiety interferes with her ability to make decisions and to tolerate medications long enough to get to a therapeutic dose and duration. However this insight is often dwarfed by her powerful anxious feelings, clearly evident in discussions. Hospital Course/reasoning: -patient remains tormented by severe anxiety which has triggered depression and suicidality. Patient perseverates on how she cannot live this way and is struggling to Hope that should get better, sometimes wondering if suicide will be the only way out of this trap her anxiety places in; she does not want to kill herself but cannot envision living with this constant anxiety. That said she is willing to engage in both therapy and medication management strategy -Patient agrees to medication plan which is to get on Lexapro and see if she can tolerate a high dose to better address her OCD/ANANDA symptoms; will also titrate Lamictal since it helps with both depression and emotional lability. Will taper off Cymbalta and Trintellix; patient has traditionally had a hard time getting off Cymbalta so will taper it slowly while increasing Lexapro. Plan is to DC lithium PLAN: Patient on CV Q 15 minutes checks for safety START LEXAPRO 5 mg daily; Titrate to 10mg LOWER Cymbalta to 20 mg daily (down from 30) LOWER Trintellix to 5 MG daily (was on 10mg for a few months; only been on 20mg for week) Plan to DC lithium however will do that next week in order to minimize changes Clonazepam 0.25 mg p.r.n. for [id number] anxiety Clonazepam 0.5 mg p.r.n. for moderate to severe anxiety 07/23: Ct plan per Dr Bansal. I spent minutes with the patient and/or on the patient floor today, greater than?50% of which was spent counseling/coordinating care. Reason for contiued inpatient stay Substantial Risk for: inability to function
[2021-07-23] MEDS: clonazePAM 0.5 MG TABLET PO (09:31)
[2021-07-23] MEDS: clonazePAM 0.5 MG TABLET 0.25 MG PO (17:32)
[2021-07-23 18:00] VITALS: BP 109/78; PULSE 90; TEMP 36.6
[2021-07-23] MEDS: Lithium Carbonate 300 MG TABLET 150 MG PO (19:30)
[2021-07-23] MEDS: hydrOXYzine HCL 25 MG TABLET PO (19:31)
[2021-07-23] MEDS: traZODone HCL 50 MG TABLET 150 MG PO (19:31)
[2021-07-24 06:00] VITALS: BP 93/61; PULSE 70; TEMP 36.2; O2SAT 99
--- NOTE | 2021-07-24 08:39 | HO.PSYCHPN ---
Subjective Subjective Date of Service: 07/24/21 Reason For Visit: depression, SI Interim History: 07/22:met with patient and her mother Melissa (who is a therapist) pt remains severely anxious, plagued by worry about medications, whether she'll get better. Passive SI no intent or plans. Pt showed scientific technical writer her copious notes of past medication trials. Pt and mother both report she seemed to be doing better in winter 2020 on Lamictal 50mg, cymbalta 30mg (was 60mg but caused night sweats), some ativan...she got into a relationship, felt good and only got depressed and suicidal when relationship ended this past May. scientific technical writer and family discussed medication options going forward however, patient could not stop anxiously vacillating between decisions, wanting to hear numerous times why this med instead of that one, repeating questions about this side-effect, lot's of what if...Pt agreed to restart and titrate Lamictal. Office Support Clerk agreed to confer with her outpt provider dr. Garner. scientific technical writer considering Lexapro, titrating to higher doses and getting off cymbalta/vortioxetine Both Pt and mother both acknowledged that patients OCD/ANANDA interfered with making medications decisions and that this will need to be addressed for med management is possible. 07/23: Perseverates re various meds. Identified OCD>> MDD. Showed me her detailed notes. Could not find her genomic profile. 07/24: Perseverates re X meds. I enquired re MAOIs given comorbid anxiety. Ct plan per Dr Bansal. Review of Systems Review of Systems Constitutional : No Fever, No Chills ENT/Mouth : No Ear Pain, No Nasal Congestion, No sore throat Eyes: No Eye Pain, No Swelling, No Redness Cardiovascular : No Chest Pain, No SOB Respiratory : No Cough, No Sputum, No Dyspnea Gastrointestinal : No Nausea, No Vomiting, No Diarrhea, No Hematochezia, No Melena Genitourinary : No Dysuria, No Urinary Frequency, No Hematuria Musculoskeletal : No Myalgias Skin : No Skin Lesions, No rash Neuro : No Weakness, No Numbness, No Paresthesias, No Dizziness, No Headache Psych : positive Anxiety, positive Depression, positive SI no HI Heme/Lymph: No Lymphadenopathy Endocrine : No Polyuria, No Polydipsia All other systems reviewed and are negative Mental Status Exam Mental Status Exam Narrative: Pt is alert and oriented; behavior is cooperative; patient in anxious distress; dressed in casual attire with unkempt hair but adequate hygiene; mood is described as depressed and anxious with anxious affect, intermittently tearful, sometimes sobbing; eye contact appropriate; Speech is normal rate, volume and prosody and not pressured; no psychomotor agitation/retardation present; thought process is organized, linear and goal directed but gets sidelined by and less perseveration on worries such as what medication to take... Did she make the right decision about substance such... Thought content is on tx; persevarates on various worries; overall pertinent to relevant topics and without any delusional content, paranoid ideations or grandiosity; SI, currently passive; no HI; No AVH and no evidence of perceptual disturbance. Patients insight and judgment are impaired. Diagnostics Vital Signs (24Hr): Vital Signs - 24 hr 07/23/21 18:00 07/24/21 06:00 Temperature 98 F 97.2 F Pulse Rate 90 70 Blood Pressure 109/78 93/61 Pulse Oximetry 99 Body Mass Index 22.6 Labs Results: 07/18/21 19:58 07/18/21 19:58 Medications Medications Current Medications Acetaminophen (Acetaminophen 325 Mg Tablet) 650 mg PO Q6H PRN PRN Reason: Headache/Pain Mild Scale (1-3) Al Hydroxide/Mg Hydroxide (Magnesium Hydrox/Alum Hydrox 30 Ml Oral.Susp) 30 ml PO Q6H PRN PRN Reason: Heartburn/Nausea Clonazepam (Clonazepam 0.5 Mg Tablet) 0.25 mg PO TID PRN PRN Reason: mild-moderate anxiety Last Admin: 07/23/21 17:32 Dose: 0.25 mg Documented by: Clonazepam (Clonazepam 0.5 Mg Tablet) 0.5 mg PO BID PRN PRN Reason: moderate-severe anxiety Last Admin: 07/23/21 09:31 Dose: 0.5 mg Documented by: Dextroamphetamine Sulfate (Dextroamphetamine Sulfate 5 Mg Tablet) 7.5 mg PO DAILY [facility] [place] Last Admin: 07/23/21 09:12 Dose: 7.5 mg Documented by: Duloxetine HCl (Duloxetine Hcl 20 Mg Capsule.Dr) 20 mg PO DAILY [facility] [place] Last Admin: 07/23/21 09:13 Dose: 20 mg Documented by: Escitalopram Oxalate (Escitalopram Oxalate 10 Mg Tablet) 10 mg PO DAILY [facility] [place] Last Admin: 07/23/21 09:13 Dose: 10 mg Documented by: Hydroxyzine HCl (Hydroxyzine Hcl 25 Mg Tablet) 25 mg PO BEDTIME [facility] [place] Last Admin: 07/23/21 19:31 Dose: 25 mg Documented by: Lamotrigine (Lamotrigine 25 Mg Tablet) 25 mg PO DAILY [facility] Last Admin: 07/23/21 09:13 Dose: 25 mg Documented by: [place] Carbonate ([place] Carbonate 300 Mg Tablet) 150 mg PO BEDTIME [facility] Last Admin: 07/23/21 19:30 Dose: 150 mg Documented by: Magnesium Hydroxide (Milk Of Magnesia 30 Ml Oral.Susp) 30 ml PO DAILY PRN PRN Reason: Constipation Propranolol HCl (Propranolol Hcl 10 Mg Tablet) 10 mg PO BID PRN; Protocol PRN Reason: Anxiety Trazodone HCl (Trazodone Hcl 50 Mg Tablet) 150 mg PO BEDTIME [facility] [place] Last Admin: 07/23/21 19:31 Dose: 150 mg Documented by: Vortioxetine (Vortioxetine Hydrobromide 5 Mg Tablet) 5 mg PO DAILY [facility] [place] Last Admin: 07/23/21 09:12 Dose: 5 mg Documented by: Vortioxetine (Vortioxetine Hydrobromide 5 Mg Tablet) 10 mg PO ONCE [facility] [place] Last Admin: 07/22/21 15:17 Dose: 10 mg Documented by: Allergies Allergies Allergy/AdvReac Type Severity Reaction Status Date / Time nortriptyline [NORTRIPTYLINE] Allergy Unknown RASH Verified 07/20/21 10:56 Assessment & Plan Assessment & Plan (1) ANANDA (generalized anxiety disorder): Status: Acute Code(s): F41.1 - Generalized anxiety disorder (2) OCD (obsessive compulsive disorder): Status: Acute Code(s): F42.9 - Obsessive-compulsive disorder, unspecified (3) MDD (major depressive disorder), recurrent episode, severe: Status: Acute Code(s): F33.2 - Major depressive disorder, recurrent severe without psychotic features Assessment and Plan: IMPRESSION: Patient is a bright, resilient 46-year-old female with history of ANANDA, OCD, depression intermittent SI who presents for worsening anxiety depression and SI. Patient is currently to tortured by endless worrying which causing her much anguish and difficulty when trying to make a decision.? She is currently depressed with passive SI however expresses that she got closer than ever before to attempting suicide.? Patient is open to medication management and also has insight to know that her OCD/anxiety interferes with her ability to make decisions and to tolerate medications long enough to get to a therapeutic dose and duration.? However this insight is often dwarfed by her powerful anxious feelings, clearly evident in discussions.? Hospital Course/reasoning: -patient remains tormented by severe anxiety which has triggered depression and suicidality.? Patient perseverates on how she cannot live this way and is struggling to Hope that should get better, sometimes wondering if suicide will be the only way out of this trap her anxiety places in; she does not want to kill herself but cannot envision living with this constant anxiety.? That said she is willing to engage in both therapy and medication management strategy PLAN: Patient on CV Q 15 minutes checks for safety .Pt agreed to restart and titrate Lamictal. Office Support Clerk agreed to confer with her outpt provider dr. Garner. scientific technical writer considering Lexapro, titrating to higher doses and getting off cymbalta/vortioxetine? Both Pt and mother both acknowledged that patients OCD/ANANDA interfered with making medications decisions and that this will need to be addressed for med management is possible.? I spent minutes with the patient and/or on the patient floor today, greater than?50% of which was spent counseling/coordinating care. Reason for contiued inpatient stay Substantial Risk for: inability to function
[2021-07-24] MEDS: clonazePAM 0.5 MG TABLET 0.25 MG PO ×2 (09:31→11:14)
[2021-07-24] MEDS: Escitalopram Oxalate 10 MG TABLET PO (09:32)
[2021-07-24] MEDS: DULoxetine HCl 20 MG CAPSULE.DR PO (09:32)
[2021-07-24] MEDS: lamoTRIgine 25 MG TABLET PO (09:32)
[2021-07-24] MEDS: Dextroamphetamine Sulfate 5 MG TABLET 7.5 MG PO (09:32)
[2021-07-24] MEDS: Vortioxetine Hydrobromide 5 MG TABLET PO (09:32)
[2021-07-24 19:16] VITALS: BP 93/55; PULSE 70; RESP 16; TEMP 36.9; O2SAT 98
[2021-07-24 20:21] VITALS: BP 109/66; PULSE 80
[2021-07-24] MEDS: hydrOXYzine HCL 25 MG TABLET PO (21:01)
[2021-07-24] MEDS: Lithium Carbonate 300 MG TABLET 150 MG PO (21:02)
[2021-07-24] MEDS: traZODone HCL 100 MG TABLET PO (21:02)
[2021-07-25 06:00] VITALS: BP 93/50; PULSE 64; RESP 16; TEMP 36.6; O2SAT 95
[2021-07-25] MEDS: Escitalopram Oxalate 10 MG TABLET PO (08:55)
[2021-07-25] MEDS: DULoxetine HCl 20 MG CAPSULE.DR PO (08:55)
[2021-07-25] MEDS: Dextroamphetamine Sulfate 5 MG TABLET 7.5 MG PO (08:55)
[2021-07-25] MEDS: Vortioxetine Hydrobromide 5 MG TABLET PO (08:55)
[2021-07-25] MEDS: lamoTRIgine 25 MG TABLET PO (08:56)
--- NOTE | 2021-07-25 10:30 | P.PNPSI_ITS ---
Subjective Subjective Date of Service: 07/25/21 Reason For Visit: depression, SI Interim History: Patient reports she continues to have extreme anxiety. She says it frequently makes her want to kill herself and she cannot in vision herself getting better. Patient says she does not like being in the hospital but thinks if she goes home she might attempt suicide. Patient breaks down and sobbing tears expressing how hard it is to feel suicidal all day long. Patient reports she continues to ruminate on numerous worries which include medication regimen, what she will do for work, her recent break-up... Patient is afraid to stop thinking about these things fearing that if she does she will not be able to figure it out. Patient has insight to understand that this is a symptom of h er anxiety, however she feels unable to stop it. Patient breaks down crying again talking about how very lonely she is that it feels unbearable at times. She shares the painful memory of her parents divorce at 5 years old and how her mother took her away from her father, her home and her dog and how that loss despite it being decades ago is still painful. Patient rates herself for not being able to get over this and repeats that her emotionality is going to kill her if she can not get under better control. To that and patient remains committed to medication regimen and agrees to continue increasing Lexapro and discontinuing both Trintellix and lithium. Patient is hesitant to drop from C ymbalta 20 to 0 mg knowing that it can be difficult to discontinue and so agrees to stay on 20 mg for now. Patient resumes various questions about why this medication verse another but seems to tolerate explanations a little more quickly than previously. Mental Status Exam Mental Status Exam Narrative: Pt is alert and oriented; behavior is cooperative; dressed in casual attire with unkempt hair but adequate hygiene; mood is described as depressed and anxious with anxious affect, intermittently tearful; eye contact appropriate; Speech is normal rate, volume and prosody and not pressured; psycho motor retardation present; thought process is organized, linear and goal directed but becomes circumstantial as it's sidelined by relentless worries of various things, most prominent over medication regimen. Thought content otherwise is pertinent to relevant topics and without any delusional content, paranoid ideations or grandiosity; SI remains; No HI; No AVH and no evidence of perceptual disturbance. ?Patients insight and judgment are impaired. Diagnostics Vital Signs (24Hr): Vital Signs - 24 hr 07/24/21 19:16 07/24/21 20:21 07/25/21 06:00 Temperature 98.4 F 97.9 F Pulse Rate 70 80 64 Respiratory Rate 16 16 Blood Pressure 93/55 L 109/66 93/50 L Pulse Oximetry 98 95 Body Mass Index 22.6 Labs Results: 07/18/21 19:58 07/18/21 19:58 Medications Medications Current Medications Acetaminophen (Acetaminophen 325 Mg Tablet) 650 mg PO Q6H PRN PRN Reason: Headache/Pain Mild Scale (1-3) Al Hydroxide/Mg Hydroxide (Magnesium Hydrox/Alum Hydrox 30 Ml Oral.Susp) 30 ml PO Q6H PRN PRN Reason: Heartburn/Nausea Clonazepam (Clonazepam 0.5 Mg Tablet) 0.25 mg PO TID PRN PRN Reason: mild-moderate anxiety Last Admin: 07/24/21 11:14 Dose: 0.25 mg Documented by: Clonazepam (Clonazepam 0.5 Mg Tablet) 0.5 mg PO BID PRN PRN Reason: moderate-severe anxiety Last Admin: 07/23/21 09:31 Dose: 0.5 mg Documented by: Dextroamphetamine Sulfate (Dextroamphetamine Sulfate 5 Mg Tablet) 7.5 mg PO DAILY [facility] Last Admin: 07/25/21 08:55 Dose: 7.5 mg Documented by: Duloxetine HCl (Duloxetine Hcl 20 Mg Capsule.Dr) 20 mg PO DAILY [facility] Last Admin: 07/25/21 08:55 Dose: 20 mg Documented by: Escitalopram Oxalate (Escitalopram Oxalate 10 Mg Tablet) 10 mg PO DAILY [facility] Last Admin: 07/25/21 08:55 Dose: 10 mg Documented by: Hydroxyzine HCl (Hydroxyzine Hcl 25 Mg Tablet) 25 mg PO BEDTIME [facility] Last Admin: 07/24/21 21:01 Dose: 25 mg Documented by: Lamotrigine (Lamotrigine 25 Mg Tablet) 25 mg PO DAILY [facility] Last Admin: 07/25/21 08:56 Dose: 25 mg Documented by: Confluence Carbonate (Confluence Carbonate 300 Mg Tablet) 150 mg PO BEDTIME [facility] Last Admin: 07/24/21 21:02 Dose: 150 mg Documented by: Magnesium Hydroxide (Milk Of Magnesia 30 Ml Oral.Susp) 30 ml PO DAILY PRN PRN Reason: Constipation Propranolol HCl (Propranolol Hcl 10 Mg Tablet) 10 mg PO BID PRN; Protocol PRN Reason: Anxiety Trazodone HCl (Trazodone Hcl 100 Mg Tablet) 100 mg PO BEDTIME [facility] Last Admin: 07/24/21 21:02 Dose: 100 mg Documented by: Trazodone HCl (Trazodone Hcl 50 Mg Tablet) 50 mg PO BEDTIME PRN PRN Reason: insomnia Vortioxetine (Vortioxetine Hydrobromide 5 Mg Tablet) 5 mg PO DAILY [facility] Last Admin: 07/25/21 08:55 Dose: 5 mg Documented by: Vortioxetine (Vortioxetine Hydrobromide 5 Mg Tablet) 10 mg PO ONCE [facility] Last Admin: 07/22/21 15:17 Dose: 10 mg Documented by: Allergies Allergies Allergy/AdvReac Type Severity Reaction Status Date / Time nortriptyline [NORTRIPTYLINE] Allergy Unknown RASH Verified 07/20/21 10:56 Assessment & Plan Assessment & Plan (1) ANANDA (generalized anxiety disorder): Status: Acute Code(s): F41.1 - Generalized anxiety disorder (2) OCD (obsessive compulsive disorder): Status: Acute Code(s): F42.9 - Obsessive-compulsive disorder, unspecified (3) MDD (major depressive disorder), recurrent episode, severe: Status: Acute Code(s): F33.2 - Major depressive disorder, recurrent severe without psychotic features Assessment and Plan: IMPRESSION: Patient is a bright, resilient 46-year-old female with history of ANANDA, OCD, depression intermittent SI who presents for worsening anxiety depression and SI. Patient is currently to tortured by endless worrying which causing her much anguish and difficulty when trying to make a decision. She is currently depressed with passive SI however expresses that she got closer than ever before to attempting suicide. Patient is open to medication management and also has insight to know that her OCD/anxiety interferes with her ability to make decisi ons and to tolerate medications long enough to get to a therapeutic dose and duration. However this insight is often dwarfed by her powerful anxious feelings, clearly evident in discussions. Hospital Course/reasoning: -patient remains tormented by severe anxiety which has triggered depression and suicidality. Patient perseverates on how she cannot live this way and is struggling to Hope that should get better, sometimes wondering if suicide will be the only way out of this trap her anxiety places in; she does not want to kill herself but cannot envision living with this constant anxiety. That said she is willing to engage in both therapy and medication management strategy -Patient agrees to medication plan which is to get on Lexapro and see if she can tolerate a high dose to better address her OCD/ANANDA symptoms; will also titrate Lamictal since it helps with both depression and emotional lability. Will taper off Cymbalta and Trintellix; patient has traditionally had a hard time getting off Cymbalta so will taper it slowly while increasing Lexapro. Plan is to DC lithium -07/25 remains tormented by anxiety; feels suicidal as she gets little relief. Agrees to continue with medication plan of titrating Lexapro, discontinuing Trintellix, discontinuing lithium and tapering Cymbalta or discontinuing Cymbalta. PLAN: Patient on CV Q 15 minutes checks for safety INCREASE to LEXAPRO 20mg; titrate as clinically determined, keeping in mind doses needed to treat OCD Continue Cymbalta to 20 mg daily (down from 30); Cymbalta does not come in a lower dosing DISCONTINUE Trintellix DISCONTINUE lithium Clonazepam 0.25 mg p.r.n. for [id number] anxiety Clonazepam 0.5 mg p.r.n. for moderate to severe anxiety I spent minutes with the patient and/or on the patient floor today, greater than?50% of which was spent counseling/coordinating care. Reason for contiued inpatient stay Substantial Risk for: harm to self and inability to function
[2021-07-25 21:05] VITALS: BP 108/63; PULSE 80; TEMP 35.7; O2SAT 100
[2021-07-25] MEDS: hydrOXYzine HCL 25 MG TABLET PO (21:19)
[2021-07-25] MEDS: traZODone HCL 100 MG TABLET PO (21:19)
[2021-07-26] MEDS: traZODone HCL 50 MG TABLET PO ×2 (02:46→20:03)
[2021-07-26] MEDS: clonazePAM 0.5 MG TABLET 0.25 MG PO (02:47)
[2021-07-26 06:00] VITALS: BP 101/53; PULSE 71; TEMP 36.6; O2SAT 100
[2021-07-26] MEDS: Escitalopram Oxalate 20 MG TABLET PO (09:10)
[2021-07-26] MEDS: lamoTRIgine 25 MG TABLET PO (09:10)
[2021-07-26] MEDS: Dextroamphetamine Sulfate 5 MG TABLET 7.5 MG PO (09:11)
[2021-07-26] MEDS: DULoxetine HCl 20 MG CAPSULE.DR PO (09:12)
--- NOTE | 2021-07-26 10:20 | HO.PSYCHPN ---
Subjective Subjective Date of Service: 07/26/21 Reason For Visit: depression, SI Interim History: Patient remains deeply depressed. She is moving slowly, has a downcast affect, frequently becomes tearful and is with minimal eye contact. Patient feels hopeless that she will ever get better and although she knows that medication treatment is in the beginning stages, is unable to use this knowledge to temper her despair. Patient says that she is less anxious than she was before and that depression has taken over, saying that this is happened before where she is too depressed to be anxious anymore. Patient has suicidal thoughts throughout the day and repeats that she cannot live like this and does not want to. She says she hates being the hospital but says in this hopeless state with this constant thoughts of wishing she were she believes she will be unable to resist the urge to kill herself. Patient still repeats expressed worry about medication but seems to lack the energy to sustain her normal intense line of questioning. Corporate Legal Secretary talked about behavioral activation to which patient said she knows that that is probably helpful but is struggling to get out of bed and to any thing active or sitting groups. She says seeing people who are mentally ill makes her very worried that she is going to end up like them, hospitalized for the rest of her life. However patient did say she will push herself to walk the halls and get some exercise knowing that it will probably be helpful. Patient denies any medication side effects at this time and agrees with continuing regimen. Mental Status Exam Mental Status Exam Narrative: Pt is alert and oriented; behavior is cooperative; dressed in casual attire, with dirty shirt, unkempt hair and marginal hygiene; mood is described is depressed and anxious with blunted, downcast affect, intermittently tearful; eye contact minimal, mostly looking downward; Speech is normal rate, but lower volume;; psychomotor retardation present; thought process is organized, linear and goal directed; thought content mostly on hopelessness of recovery, as an option to end sadness; intermittently TC can get sidelined by chronic, relentless worries of various things, most prominently over medication regimen, however less than before; otherwise it is pertinent to relevant topics and without any delusional content, paranoid ideations or grandiosity; SI; No HI; No AVH and no evidence of perceptual disturbance. ?Patients insight and judgment are impaired. Diagnostics Vital Signs (24Hr): Vital Signs - 24 hr 07/25/21 21:05 07/26/21 06:00 Temperature 96.3 F L 97.8 F Pulse Rate 80 71 Blood Pressure 108/63 101/53 L Pulse Oximetry 100 100 Body Mass Index 22.6 Labs Results: 07/18/21 19:58 07/18/21 19:58 Medications Medications Current Medications Acetaminophen (Acetaminophen 325 Mg Tablet) 650 mg PO Q6H PRN PRN Reason: Headache/Pain Mild Scale (1-3) Al Hydroxide/Mg Hydroxide (Magnesium Hydrox/Alum Hydrox 30 Ml Oral.Susp) 30 ml PO Q6H PRN PRN Reason: Heartburn/Nausea Clonazepam (Clonazepam 0.5 Mg Tablet) 0.25 mg PO TID PRN PRN Reason: mild-moderate anxiety Last Admin: 07/26/21 02:47 Dose: 0.25 mg Documented by: Clonazepam (Clonazepam 0.5 Mg Tablet) 0.5 mg PO BID PRN PRN Reason: moderate-severe anxiety Last Admin: 07/23/21 09:31 Dose: 0.5 mg Documented by: Dextroamphetamine Sulfate (Dextroamphetamine Sulfate 5 Mg Tablet) 7.5 mg PO DAILY [facility] Last Admin: 07/26/21 09:11 Dose: 7.5 mg Documented by: Duloxetine HCl (Duloxetine Hcl 20 Mg Capsule.Dr) 20 mg PO DAILY [facility] Last Admin: 07/26/21 09:12 Dose: 20 mg Documented by: Escitalopram Oxalate (Escitalopram Oxalate 20 Mg Tablet) 20 mg PO DAILY [facility] Last Admin: 07/26/21 09:10 Dose: 20 mg Documented by: Hydroxyzine HCl (Hydroxyzine Hcl 25 Mg Tablet) 25 mg PO BEDTIME [facility] Last Admin: 07/25/21 21:19 Dose: 25 mg Documented by: Lamotrigine (Lamotrigine 25 Mg Tablet) 25 mg PO DAILY [facility] Last Admin: 07/26/21 09:10 Dose: 25 mg Documented by: Magnesium Hydroxide (Milk Of Magnesia 30 Ml Oral.Susp) 30 ml PO DAILY PRN PRN Reason: Constipation Patient Own Medication( L- Methlyfolate 10mg Cap) 1 each PO DAILY [facility] Last Admin: 07/26/21 09:10 Dose: 1 each Documented by: Propranolol HCl (Propranolol Hcl 10 Mg Tablet) 10 mg PO BID PRN; Protocol PRN Reason: Anxiety Trazodone HCl (Trazodone Hcl 100 Mg Tablet) 100 mg PO BEDTIME [facility] Last Admin: 07/25/21 21:19 Dose: 100 mg Documented by: Trazodone HCl (Trazodone Hcl 50 Mg Tablet) 50 mg PO BEDTIME PRN PRN Reason: insomnia Last Admin: 07/26/21 02:46 Dose: 50 mg Documented by: Allergies Allergies Allergy/AdvReac Type Severity Reaction Status Date / Time nortriptyline [NORTRIPTYLINE] Allergy Unknown RASH Verified 07/20/21 10:56 Assessment & Plan Assessment & Plan (1) ANANDA (generalized anxiety disorder): Status: Acute Code(s): F41.1 - Generalized anxiety disorder (2) OCD (obsessive compulsive disorder): Status: Acute Code(s): F42.9 - Obsessive-compulsive disorder, unspecified (3) MDD (major depressive disorder), recurrent episode, severe: Status: Acute Code(s): F33.2 - Major depressive disorder, recurrent severe without psychotic features Assessment and Plan: IMPRESSION: Patient is a bright, resilient 46-year-old female with history of ANANDA, OCD, depression intermittent SI who presents for worsening anxiety depression and SI. Patient is currently to tortured by endless worrying which causing her much anguish and difficulty when trying to make a decision. She is currently depressed with passive SI however expresses that she got closer than ever before to attempting suicide. Patient is open to medication management and also has insight to know that her OCD/anxiety interferes with her ability to make decisions and to tolerate medications long enough to get to a therapeutic dose and duration. However this insight is often dwarfed by her powerful anxious feelings, clearly evident in discussions. Hospital Course/reasoning: -patient remains tormented by severe anxiety which has triggered depression and suicidality. Patient perseverates on how she cannot live this way and is struggling to Hope that should get better, sometimes wondering if suicide will be the only way out of this trap her anxiety places in; she does not want to kill herself but cannot envision living with this constant anxiety. That said she is willing to engage in both therapy and medication management strategy -Patient agrees to medication plan which is to get on Lexapro and see if she can tolerate a high dose to better address her OCD/ANANDA symptoms; will also titrate Lamictal since it helps with both depression and emotional lability. Will taper off Cymbalta and Trintellix; patient has traditionally had a hard time getting off Cymbalta so will taper it slowly while increasing Lexapro. Plan is to DC lithium -07/25 remains tormented by anxiety; feels suicidal as she gets little relief. Agrees to continue with medication plan of titrating Lexapro, discontinuing Trintellix, discontinuing lithium and tapering Cymbalta or discontinuing Cymbalta. 07/26 patient is increasingly depressed, evidenced by her seemingly lack of energy to maintain worry and relentless inquiry about medication regimen. Patient talks less, affect is more down cast and she has minimal eye contact. She expresses continued hopelessness and SI. Mostly isolating in her room. It is unclear if this is due to taking away Trintellix and lowering Cymbalta dose or just part of patient's process. Will continue with plan to titrate Lexapro as fast as patient can tolerate; discussed case with Dr. Post who agrees with leaving Cymbalta at 20 mg (since 10 mg doses do not exist) while simultaneously titrating Lexapro, an effort to avoid discontinuation syndrome which is not uncommon with Cymbalta. Corporate Legal Secretary continues to wonder about titrating patient on lithium just to see if it would help, especially so as a more severe depression has seemed to somewhat replace patient's intense OCD/ANANDA symptoms. Also, through continued discussion of patient's history, there does seem to be a pattern of episodic depression and anxiety; patient has never had an overt manic episode however the episodic nature of her symptoms remains a curiosity. While Lamictal can also treat this, it takes at least a month to get to a minimal therapeutic dose. Will continue current regimen for now PLAN: Patient on CV Q 15 minutes checks for safety For now, continue LEXAPRO 20mg; titrate as clinically determined, keeping in mind doses needed to treat OCD Continue Cymbalta to 20 mg daily (down from 30); Cymbalta does not come in a lower dosing DISCONTINUE Trintellix DISCONTINUE lithiuml remains an option Clonazepam 0.25 mg p.r.n. for [id number] anxiety Clonazepam 0.5 mg p.r.n. for moderate to severe anxiety I spent minutes with the patient and/or on the patient floor today, greater than?50% of which was spent counseling/coordinating care. Reason for contiued inpatient stay Substantial Risk for: harm to self and inability to function
[2021-07-26 18:00] VITALS: BP 100/65; PULSE 72; TEMP 36.6; O2SAT 100
[2021-07-26] MEDS: traZODone HCL 100 MG TABLET PO (20:03)
[2021-07-26] MEDS: hydrOXYzine HCL 25 MG TABLET PO (20:03)
[2021-07-27 06:00] VITALS: BP 91/55; PULSE 57; RESP 18; TEMP 37; O2SAT 98
[2021-07-27] MEDS: lamoTRIgine 25 MG TABLET PO (09:24)
[2021-07-27] MEDS: Escitalopram Oxalate 20 MG TABLET PO (09:24)
[2021-07-27] MEDS: Dextroamphetamine Sulfate 5 MG TABLET 7.5 MG PO (09:25)
[2021-07-27] MEDS: DULoxetine HCl 20 MG CAPSULE.DR PO (09:25)
--- NOTE | 2021-07-27 10:15 | P.PNPSI_ITS ---
Subjective Subjective Date of Service: 07/27/21 Reason For Visit: depression, SI Interim History: pt seen on 07/27 Patient remains extremely depressed and anxious with depression predominating. Patient tearful, breaks down and cries saying she cannot take this oblique future and constant pressure of feeling bad all the time, all day long. She remains willing to continue with medication regimen but says it is very difficult for her to have hope of getting better. Duck Farmer asked about history of TMS and patient did have a initial session in 2019 where only the mapping took place but during that time her lower jaw started to quiver and provider did not move forward with treatment. Duck Farmer talked about reconsidering a trial of lithium since it may be provide benefit and is able to be titrated rather quickly giving an answer whether or not it is effective. Patient became extremely anxious about this discussion, about the potential risk of side effects and then about whether or not this was a better or worse medication then Lamictal. Duck Farmer and patient decided to hold off from discussing this further at this time. Mental Status Exam Mental Status Exam Narrative: Pt is alert and oriented; behavior is cooperative; dressed in casual attire, unkempt hair and marginal hygiene; mood is described is depressed and anxious with blunted, downcast affect, intermittently tearful or anxious; eye contact minimal, mostly looking downward; Speech is normal rate, but lower volume;; psychomotor retardation present; thought process is organized, linear and goal directed; thought content mostly on hopelessness of recovery, as an option to end sadness; intermittently TC can get sidelined by chronic, relentless worries of various things, most prominently over medication regimen, however less than before; otherwise it is pertinent to relevant topics and without any delusional content, paranoid ideations or grandiosity; SI; No HI; No AVH and no evidence of perceptual disturbance. ?Patients insight and judgment are impaired. Diagnostics Vital Signs (24Hr): Vital Signs - 24 hr 07/26/21 18:00 07/27/21 06:00 Temperature 97.8 F 98.6 F Pulse Rate 72 57 Respiratory Rate 18 Blood Pressure 100/65 91/55 L Pulse Oximetry 100 98 Body Mass Index 22.6 Labs Results: 07/18/21 19:58 07/18/21 19:58 Medications Medications Current Medications Acetaminophen (Acetaminophen 325 Mg Tablet) 650 mg PO Q6H PRN PRN Reason: Headache/Pain Mild Scale (1-3) Al Hydroxide/Mg Hydroxide (Magnesium Hydrox/Alum Hydrox 30 Ml Oral.Susp) 30 ml PO Q6H PRN PRN Reason: Heartburn/Nausea Clonazepam (Clonazepam 0.5 Mg Tablet) 0.25 mg PO TID PRN PRN Reason: mild-moderate anxiety Last Admin: 07/26/21 02:47 Dose: 0.25 mg Documented by: Clonazepam (Clonazepam 0.5 Mg Tablet) 0.5 mg PO BID PRN PRN Reason: moderate-severe anxiety Last Admin: 07/23/21 09:31 Dose: 0.5 mg Documented by: Dextroamphetamine Sulfate (Dextroamphetamine Sulfate 5 Mg Tablet) 7.5 mg PO DAILY COUNT INCLUDES THE [facility] Last Admin: 07/27/21 09:25 Dose: 7.5 mg Documented by: Docusate Sodium (Docusate Sodium 100 Mg Capsule) 100 mg PO DAILY PRN PRN Reason: constipation Duloxetine HCl (Duloxetine Hcl 20 Mg Capsule.Dr) 20 mg PO DAILY COUNT INCLUDES THE [facility] Last Admin: 07/27/21 09:25 Dose: 20 mg Documented by: Escitalopram Oxalate (Escitalopram Oxalate 20 Mg Tablet) 20 mg PO DAILY COUNT INCLUDES THE [facility] Last Admin: 07/27/21 09:24 Dose: 20 mg Documented by: Hydroxyzine HCl (Hydroxyzine Hcl 25 Mg Tablet) 25 mg PO BEDTIME COUNT INCLUDES THE [facility] Last Admin: 07/26/21 20:03 Dose: 25 mg Documented by: Lamotrigine (Lamotrigine 25 Mg Tablet) 25 mg PO DAILY COUNT INCLUDES THE [facility] Last Admin: 07/27/21 09:24 Dose: 25 mg Documented by: Magnesium Hydroxide (Milk Of Magnesia 30 Ml Oral.Susp) 30 ml PO DAILY PRN PRN Reason: Constipation Patient Own Medication( L- Methlyfolate 10mg Cap) 1 each PO DAILY COUNT INCLUDES THE [facility] Last Admin: 07/27/21 09:23 Dose: 1 each Documented by: Propranolol HCl (Propranolol Hcl 10 Mg Tablet) 10 mg PO BID PRN; Protocol PRN Reason: Anxiety Trazodone HCl (Trazodone Hcl 100 Mg Tablet) 100 mg PO BEDTIME COUNT INCLUDES THE [facility] Last Admin: 07/26/21 20:03 Dose: 100 mg Documented by: Trazodone HCl (Trazodone Hcl 50 Mg Tablet) 50 mg PO BEDTIME PRN PRN Reason: insomnia Last Admin: 07/26/21 20:03 Dose: 50 mg Documented by: Allergies Allergies Allergy/AdvReac Type Severity Reaction Status Date / Time nortriptyline [NORTRIPTYLINE] Allergy Unknown RASH Verified 07/20/21 10:56 Assessment & Plan Assessment & Plan (1) ANANDA (generalized anxiety disorder): Status: Acute Code(s): F41.1 - Generalized anxiety disorder (2) OCD (obsessive compulsive disorder): Status: Acute Code(s): F42.9 - Obsessive-compulsive disorder, unspecified (3) MDD (major depressive disorder), recurrent episode, severe: Status: Acute Code(s): F33.2 - Major depressive disorder, recurrent severe without psychotic features Assessment and Plan: IMPRESSION: Patient is a bright, resilient 46-year-old female with history of ANANDA, OCD, depression intermittent SI who presents for worsening anxiety depression and SI. Patient is currently to tortured by endless worrying which causing her much anguish and difficulty when trying to make a decision. She is currently depressed with passive SI however expresses that she got closer than ever before to attempting suicide. Patient is open to medication management and also has insight to know that her OCD/anxiety interferes with her ability to make decisions and to tolerate medications long enough to get to a therapeutic dose and duration. However this insight is often dwarfed by her powerful anxious feelings, clearly evident in discussions. Hospital Course/reasoning: -patient remains tormented by severe anxiety which has triggered depression and suicidality. Patient perseverates on how she cannot live this way and is struggling to Hope that should get better, sometimes wondering if suicide will be the only way out of this trap her anxiety places in; she does not want to kill herself but cannot envision living with this constant anxiety. That said she is willing to engage in both therapy and medication management strategy -Patient agrees to medication plan which is to get on Lexapro and see if she can tolerate a high dose to better address her OCD/ANANDA symptoms; will also titrate Lamictal since it helps with both depression and emotional lability. Will taper off Cymbalta and Trintellix; patient has traditionally had a hard time getting off Cymbalta so will taper it slowly while increasing Lexapro. Plan is to DC lithium -07/25 remains tormented by anxiety; feels suicidal as she gets little relief. Agrees to continue with medication plan of titrating Lexapro, discontinuing Trintellix, discontinuing lithium and tapering Cymbalta or discontinuing Cymbalta. 07/26 patient is increasingly depressed, evidenced by her seemingly lack of energy to maintain worry and relentless inquiry about medication regimen. Patient talks less, affect is more down cast and she has minimal eye contact. She expresses continued hopelessness and SI. Mostly isolating in her room. It is unclear if this is due to taking away Trintellix and lowering Cymbalta dose or just part of patient's process. Will continue with plan to titrate Lexapro as fast as patient can tolerate; discussed case with Dr. Post who agrees with leaving Cymbalta at 20 mg (since 10 mg doses do not exist) while simultaneously titrating Lexapro, an effort to avoid discontinuation syndrome which is not uncommon with Cymbalta. Duck Farmer continues to wonder about re-trying patient on lithium (and getting to therapeutic dose) just to see if it would help, especially so as a more severe depression has seemed to somewhat replace patient's intense OCD/ANANDA symptoms. Also, through continued discussion of patient's history, there does seem to be a pattern of episodic depression and anxiety; patient has never had an overt manic episode however the episodic nature of her symptoms remains a curiosity. While Lamictal can also treat this, it takes at least a month to get to a minimal therapeutic dose. - PLAN: Patient on CV Q 15 minutes checks for safety continue LEXAPRO 20mg; titrate as clinically determined, keeping in mind doses needed to treat OCD Continue Cymbalta to 20 mg daily (down from 30); Cymbalta does not come in a lo wer dosing DISCONTINUE Trintellix DISCONTINUE lithiuml remains an option Clonazepam 0.25 mg p.r.n. for [id number] anxiety Clonazepam 0.5 mg p.r.n. for moderate to severe anxiety I spent minutes with the patient and/or on the patient floor today, greater than?50% of which was spent counseling/coordinating care. Reason for contiued inpatient stay Substantial Risk for: harm to self and inability to function
[2021-07-27] MEDS: Docusate Sodium 100 MG CAPSULE PO (11:06)
[2021-07-27 18:00] VITALS: BP 99/73; PULSE 78; RESP 16; TEMP 36.7; O2SAT 100
[2021-07-27] MEDS: traZODone HCL 100 MG TABLET PO (21:05)
[2021-07-27] MEDS: hydrOXYzine HCL 25 MG TABLET PO (21:05)
[2021-07-28 06:00] VITALS: BP 90/52; PULSE 57; RESP 18; TEMP 36.8; O2SAT 100
[2021-07-28] MEDS: lamoTRIgine 25 MG TABLET PO (09:52)
[2021-07-28] MEDS: Escitalopram Oxalate 20 MG TABLET PO (09:52)
[2021-07-28] MEDS: Dextroamphetamine Sulfate 5 MG TABLET 7.5 MG PO (09:52)
[2021-07-28] MEDS: DULoxetine HCl 20 MG CAPSULE.DR PO (09:52)
--- NOTE | 2021-07-28 14:21 | P.PNPSI_ITS ---
Subjective Subjective Date of Service: 07/28/21 Reason For Visit: depression, SI Interim History: Pt seen on 07/28 Patient remains depressed and anxious however she said she does not quite feel as depressed as she did yesterday. She feels however that this is likely short lived since it typically is but says today she does not seem to be freaking out as much as she normally would about typical things. Patient said she has a little bit more hope about at some point getting better. She says she thought about lithium and will consider it but wants to read about side effect profile to which teletypewriter operator agreed to provide. Mental Status Exam Mental Status Exam Narrative: Pt is alert and oriented; behavior is cooperative; dressed in casual attire,? unkempt hair and marginal hygiene; mood is described is depressed and anxious but a little better but still with blunted, downcast affect, intermittently tearful or anxious; eye contact minimal, mostly looking downward; Speech is normal rate, but lower volume;; psychomotor retardation present; thought process is organized, linear and goal directed; thought content more hopeful today and thinking bout medications; otherwise, frequent struggles with hopelessness of recovery, as an option to end sadness; intermittently TC can get sidelined by chronic, relentless worries of various things, most prominently over medication regimen, however less than before; otherwise it is pertinent to relevant topics and without any delusional content, paranoid ideations or grandiosity; SI; No HI; No AVH and no evidence of perceptual disturbance. ?Patients insight and judgment are impaired. Diagnostics Vital Signs (24Hr): Vital Signs - 24 hr 07/27/21 18:00 07/28/21 06:00 Temperature 98.0 F 98.3 F Pulse Rate 78 57 Respiratory Rate 16 18 Blood Pressure 99/73 90/52 L Pulse Oximetry 100 100 Body Mass Index 22.6 Labs Results: 07/18/21 19:58 07/18/21 19:58 Medications Medications Current Medications Acetaminophen (Acetaminophen 325 Mg Tablet) 650 mg PO Q6H PRN PRN Reason: Headache/Pain Mild Scale (1-3) Al Hydroxide/Mg Hydroxide (Magnesium Hydrox/Alum Hydrox 30 Ml Oral.Susp) 30 ml PO Q6H PRN PRN Reason: Heartburn/Nausea Dextroamphetamine Sulfate (Dextroamphetamine Sulfate 5 Mg Tablet) 7.5 mg PO DAILY [facility] Last Admin: 07/28/21 09:52 Dose: 7.5 mg Documented by: Docusate Sodium (Docusate Sodium 100 Mg Capsule) 100 mg PO DAILY PRN PRN Reason: constipation Duloxetine HCl (Duloxetine Hcl 20 Mg Capsule.Dr) 20 mg PO DAILY [facility] Last Admin: 07/28/21 09:52 Dose: 20 mg Documented by: Escitalopram Oxalate (Escitalopram Oxalate 20 Mg Tablet) 20 mg PO DAILY [facility] Last Admin: 07/28/21 09:52 Dose: 20 mg Documented by: Hydroxyzine HCl (Hydroxyzine Hcl 25 Mg Tablet) 25 mg PO BEDTIME [facility] Last Admin: 07/27/21 21:05 Dose: 25 mg Documented by: Lamotrigine (Lamotrigine 25 Mg Tablet) 25 mg PO DAILY [facility] Last Admin: 07/28/21 09:52 Dose: 25 mg Documented by: Magnesium Hydroxide (Milk Of Magnesia 30 Ml Oral.Susp) 30 ml PO DAILY PRN PRN Reason: Constipation Patient Own Medication( L- Methlyfolate 10mg Cap) 1 each PO DAILY [facility] Last Admin: 07/28/21 09:52 Dose: 1 each Documented by: Propranolol HCl (Propranolol Hcl 10 Mg Tablet) 10 mg PO BID PRN; Protocol PRN Reason: Anxiety Trazodone HCl (Trazodone Hcl 100 Mg Tablet) 100 mg PO BEDTIME [facility] Last Admin: 07/27/21 21:05 Dose: 100 mg Documented by: Trazodone HCl (Trazodone Hcl 50 Mg Tablet) 50 mg PO BEDTIME PRN PRN Reason: insomnia Last Admin: 07/26/21 20:03 Dose: 50 mg Documented by: Allergies Allergies Allergy/AdvReac Type Severity Reaction Status Date / Time nortriptyline [NORTRIPTYLINE] Allergy Unknown RASH Verified 07/20/21 10:56 Assessment & Plan Assessment & Plan (1) ANANDA (generalized anxiety disorder): Status: Acute Code(s): F41.1 - Generalized anxiety disorder (2) OCD (obsessive compulsive disorder): Status: Acute Code(s): F42.9 - Obsessive-compulsive disorder, unspecified (3) MDD (major depressive disorder), recurrent episode, severe: Status: Acute Code(s): F33.2 - Major depressive disorder, recurrent severe without psychotic features Assessment and Plan: IMPRESSION: Patient is a bright, resilient 46-year-old female with history of ANANDA, OCD, depression intermittent SI who presents for worsening anxiety depression and SI. Patient is currently to tortured by endless worrying which causing her much anguish and difficulty when trying to make a decision. She is currently depressed with passive SI however expresses that she got closer than ever before to attempting suicide. Patient is open to medication management and also has insight to know that her OCD/anxiety interferes with her ability to make decisions and to tolerate medications long enough to get to a therapeutic dose and duration. However this insight is often dwarfed by her powerful anxious feelings, clearly evident in discussions. Hospital Course/reasoning: -patient remains tormented by severe anxiety which has triggered depression and suicidality. Patient perseverates on how she cannot live this way and is struggling to Hope that should get better, sometimes wondering if suicide will be the only way out of this trap her anxiety places in; she does not want to kill herself but cannot envision living with this constant anxiety. That said she is willing to engage in both therapy and medication management strategy -Patient agrees to medication plan which is to get on Lexapro and see if she can tolerate a high dose to better address her OCD/ANANDA symptoms; will also titrate Lamictal since it helps with both depression and emotional lability. Will taper off Cymbalta and Trintellix; patient has traditionally had a hard time getting off Cymbalta so will taper it slowly while increasing Lexapro. Plan is to DC lithium -07/25 remains tormented by anxiety; feels suicidal as she gets little relief. Agrees to continue with medication plan of titrating Lexapro, discontinuing Trintellix, discontinuing lithium and tapering Cymbalta or discontinuing Cymbalta. 07/26 patient is increasingly depressed, evidenced by her seemingly lack of energy to maintain worry and relentless inquiry about medication regimen. Patient talks less, affect is more down cast and she has minimal eye contact. She expresses continued hopelessness and SI. Mostly isolating in her room. It is unclear if this is due to taking away Trintellix and lowering Cymbalta dose or just part of patient's process. Will continue with plan to titrate Lexapro as fast as patient can tolerate; discussed case with Dr. Post who agrees with leaving Cymbalta at 20 mg (since 10 mg doses do not exist) while simultaneously titrating Lexapro, an effort to avoid discontinuation syndrome which is not uncommon with Cymbalta. Pl Sql Developer continues to wonder about titrating patient on lithium just to see if it would help, especially so as a more severe depression has seemed to somewhat replace patient's intense OCD/ANANDA symptoms. Also, through continued discussion of patient's history, there does seem to be a pattern of episodic depression and anxiety; patient has never had an overt manic episode however the episodic nature of her symptoms remains a curiosity. While Lamictal can also treat this, it takes at least a month to get to a minimal therapeutic dose. Will continue current regimen for now 07/28 patient feels a little better today and is not sure if it is the Lexapro or if it is just the day; she remains depressed and anxious but feels a little more hopeful that perhaps medication will eventually work. She is considering lithium and wants to review risks/side effects further on her own PLAN: Patient on CV Q 15 minutes checks for safety INCREASE TO LEXAPRO 30mg; titrate as clinically determined, keeping in mind doses needed to treat OCD Continue Cymbalta to 20 mg daily (down from 30); Cymbalta does not come in a lower dosing DISCONTINUE Trintellix DISCONTINUE lithium; but still remains an option Clonazepam 0.25 mg p.r.n. for [id number] anxiety Clonazepam 0.5 mg p.r.n. for moderate to severe anxiety I spent minutes with the patient and/or on the patient floor today, greater than?50% of which was spent counseling/coordinating care. Reason for contiued inpatient stay Substantial Risk for: harm to self and inability to function
[2021-07-28 20:30] VITALS: BP 113/76; PULSE 80; RESP 16; TEMP 36.3; O2SAT 98
[2021-07-28] MEDS: hydrOXYzine HCL 25 MG TABLET PO (20:42)
[2021-07-28] MEDS: traZODone HCL 25 MG HALFTAB 75 MG PO (20:43)
[2021-07-29] MEDS: Escitalopram Oxalate 10 MG TABLET 30 MG PO (09:25)
[2021-07-29] MEDS: DULoxetine HCl 20 MG CAPSULE.DR PO (09:26)
[2021-07-29] MEDS: Dextroamphetamine Sulfate 5 MG TABLET 7.5 MG PO (09:26)
[2021-07-29] MEDS: lamoTRIgine 25 MG TABLET PO (09:27)
[2021-07-29 09:34] VITALS: BP 116/74; PULSE 82; RESP 16; TEMP 36.3; O2SAT 100
--- NOTE | 2021-07-29 09:54 | P.PNPSI_ITS ---
Subjective Subjective Date of Service: 07/29/21 Reason For Visit: depression, SI Interim History: Patient is in severe distress and anguish, sobbing uncontrollably saying she can not take this any F-ing more; she repeats over and over I do not want to but I can not take this anymore... I want to get out of the hospital but I can not. Patient said she feels like she is going crazy and reports that she is tremulous and thinks it is either due to going up on the medications to lower dose of Cymbalta. Patient was willing to take a clonazepam and eventually able to calm down. She remains extremely distraught with no hope that she will get better. Patient expresses that a lot of her current emotionality is due to the fact that she was feeling a little better yesterday and now she is feeling worse, dashing her hopes. Mental Status Exam Mental Status Exam Narrative: Pt is alert and oriented; behavior is cooperative; dressed in casual attire,?hair pulled back with adequate marginal hygiene; mood is described is depressed and anxious, teaful, downcast affect; eye contact minimal, mostly looking downward; Speech is normal rate, normal volume;; psychomotor retardation present; thought process is organized, linear and goal directed; thought content mostly on hopelessness of recovery, as an option to end sadness; intermittently TC can get sidelined by chronic, relentless worries of various things, most prominently over medication regimen, however less than before; otherwise it is pertinent to relevant topics and without any delusional content, paranoid ideations or grandiosity; SI; No HI; No AVH and no evidence of perceptual disturbance. ?Patients insight and judgment are impaired. Diagnostics Vital Signs (24Hr): Vital Signs - 24 hr 07/28/21 20:30 07/29/21 09:34 Temperature 97.3 F 97.4 F Pulse Rate 80 82 Respiratory Rate 16 16 Blood Pressure 113/76 116/74 Pulse Oximetry 98 100 Body Mass Index 22.6 Labs Results: 07/18/21 19:58 07/18/21 19:58 Medications Medications Current Medications Acetaminophen (Acetaminophen 325 Mg Tablet) 650 mg PO Q6H PRN PRN Reason: Headache/Pain Mild Scale (1-3) Al Hydroxide/Mg Hydroxide (Magnesium Hydrox/Alum Hydrox 30 Ml Oral.Susp) 30 ml PO Q6H PRN PRN Reason: Heartburn/Nausea Clonazepam (Clonazepam 0.5 Mg Tablet) 0.25 mg PO BID PRN PRN Reason: mild anxiety Clonazepam (Clonazepam 0.5 Mg Tablet) 0.5 mg PO BID PRN PRN Reason: moderate to severe anxiety Dextroamphetamine Sulfate (Dextroamphetamine Sulfate 5 Mg Tablet) 7.5 mg PO DAILY [facility] Last Admin: 07/29/21 09:26 Dose: 7.5 mg Documented by: Docusate Sodium (Docusate Sodium 100 Mg Capsule) 100 mg PO DAILY PRN PRN Reason: constipation Duloxetine HCl (Duloxetine Hcl 20 Mg Capsule.Dr) 20 mg PO DAILY [facility] Last Admin: 07/29/21 09:26 Dose: 20 mg Documented by: Escitalopram Oxalate (Escitalopram Oxalate 10 Mg Tablet) 30 mg PO DAILY [facility] Last Admin: 07/29/21 09:25 Dose: 30 mg Documented by: Hydroxyzine HCl (Hydroxyzine Hcl 25 Mg Tablet) 25 mg PO BEDTIME [facility] Last Admin: 07/28/21 20:42 Dose: 25 mg Documented by: Lamotrigine (Lamotrigine 25 Mg Tablet) 25 mg PO DAILY [facility] Last Admin: 07/29/21 09:27 Dose: 25 mg Documented by: Magnesium Hydroxide (Milk Of Magnesia 30 Ml Oral.Susp) 30 ml PO DAILY PRN PRN Reason: Constipation Patient Own Medication( L- Methlyfolate 10mg Cap) 1 each PO DAILY [facility] Last Admin: 07/29/21 09:24 Dose: 1 each Documented by: Propranolol HCl (Propranolol Hcl 10 Mg Tablet) 10 mg PO BID PRN; Protocol PRN Reason: Anxiety Trazodone HCl (Trazodone Hcl 25 Mg Halftab) 75 mg PO BEDTIME [facility] Last Admin: 07/28/21 20:43 Dose: 75 mg Documented by: Trazodone HCl (Trazodone Hcl 25 Mg Halftab) 25 mg PO BEDTIME PRN PRN Reason: insomnia Allergies Allergies Allergy/AdvReac Type Severity Reaction Status Date / Time nortriptyline [NORTRIPTYLINE] Allergy Unknown RASH Verified 07/20/21 10:56 Assessment & Plan Assessment & Plan (1) ANANDA (generalized anxiety disorder): Status: Acute Code(s): F41.1 - Generalized anxiety disorder (2) OCD (obsessive compulsive disorder): Status: Acute Code(s): F42.9 - Obsessive-compulsive disorder, unspecified (3) MDD (major depressive disorder), recurrent episode, severe: Status: Acute Code(s): F33.2 - Major depressive disorder, recurrent severe without psychotic features Assessment and Plan: IMPRESSION: Patient is a bright, resilient 46-year-old female with history of ANANDA, OCD, depression intermittent SI who presents for worsening anxiety depression and SI. Patient is currently to tortured by endless worrying which causing her much anguish and difficulty when trying to make a decision. She is currently depressed with passive SI however expresses that she got closer than ever before to attempting suicide. Patient is open to medication management and also has insight to know that her OCD/anxiety interferes with her ability to make decisions and to tolerate medications long enough to get to a therapeutic dose and duration. However this insight is often dwarfed by her powerful anxious feelings, clearly evident in discussions. Hospital Course/reasoning: -patient remains tormented by severe anxiety which has triggered depression and suicidality. Patient perseverates on how she cannot live this way and is struggling to Hope that should get better, sometimes wondering if suicide will be the only way out of this trap her anxiety places in; she does not want to kill herself but cannot envision living with this constant anxiety. That said she is willing to engage in both therapy and medication management strategy -Patient agrees to medication plan which is to get on Lexapro and see if she can tolerate a high dose to better address her OCD/ANANDA symptoms; will also titrate Lamictal since it helps with both depression and emotional lability. Will taper off Cymbalta and Trintellix; patient has traditionally had a hard time getting off Cymbalta so will taper it slowly while increasing Lexapro. Delphine n is to DC lithium -07/25 remains tormented by anxiety; feels suicidal as she gets little relief. Agrees to continue with medication plan of titrating Lexapro, discontinuing Trintellix, discontinuing lithium and tapering Cymbalta or discontinuing Cymbalta. 07/26 patient is increasingly depressed, evidenced by her seemingly lack of energy to maintain worry and relentless inquiry about medication regimen.? Patient talks less, affect is more down cast and she has minimal eye contact.? She expresses continued hopelessness and SI. Mostly isolating in her room.? It is unclear if this is due to taking away Trintellix and lowering Cymbalta dose or just part of patient's process.? Will continue with plan to titrate Lexapro as fast as patient can tolerate; discussed case with Dr. Post who agrees with leaving Cymbalta at 20 mg (since 10 mg doses do not exist) while simultaneously titrating Lexapro, an effort to avoid discontinuation syndrome which is not uncommon with Cymbalta.? Cap Blocker continues to wonder about titrating patient on lithium just to see if it would help, especially so as a more severe depression has seemed to somewhat replace patient's intense OCD/ANANDA symptoms.? Also, through continued discussion of patient's history, there does seem to be a pattern of episodic depression and anxiety; patient has never had an overt manic episode however the episodic nature of her symptoms remains a curiosity.? While Lamictal can also treat this, it takes at least a month to get to a minimal therapeutic dose. Will continue current regimen for now 07/28 patient feels a little better today and is not sure if it is the Lexapro or if it is just the day; she remains depressed and anxious but feels a little more hopeful that perhaps medication will eventually work.? She is considering li thium and wants to review risks/side effects further on her own 07/29 extremely depressed and anxious. Patient reports a tremor of her hands and feeling overall and seeing her body, a little like akathisia (she is already on propranolol and typically has a lower blood pressure); she is only on Cymbalta 20 and Lexapro 30 mg making it unlikely she has serotonin syndrome though it is possible she could have a touch of it (patient was on Cymbalta and Trintellix simultaneously and had mild tremor); it is unlikely that she is having discontinuation syndrome going down from only Cymbalta 30 mg to 20. Patient has a history of having psychosomatic responses to medication treatments. At this time inspector automatic typewriter will treat patient's symptoms with clonazepam and see if it resolves on its own. Otherwise may need to discontinue Cymbalta or go to Cymbalta 20 mg every other day. -patient says in hindsight maybe she was more stable on lithium and leans towards going back on it however given her extreme anxiety with medications and inspector automatic typewriter's hesitation to further muddy her responses to current treatment, she agrees to hold off for now PLAN: Patient on CV Q 15 minutes checks for safety Scheduled clonazepam 0.5 mg b.i.d. Will leave clonazepam 0.25 mg q.i.d. p.r.n. continue LEXAPRO 30mg; titrate as clinically determined, keeping in mind doses needed to treat OCD Continue Cymbalta to 20 mg daily (down from 30); Cymbalta does not come in a lower dosing DISCONTINUE Trintellix DISCONTINUE lithium; but still remains an option Clonazepam 0.25 mg p.r.n. for [id number] anxiety Clonazepam 0.5 mg p.r.n. for moderate to severe anxiety I spent minutes with the patient and/or on the patient floor today, greater than?50% of which was spent counseling/coordinating care. Reason for contiued inpatient stay Substantial Risk for: harm to self
[2021-07-29] MEDS: clonazePAM 0.5 MG TABLET 0.25 MG PO (10:08)
--- NOTE | 2021-07-29 10:57 | HO.OPPROGNO ---
Subjective Subjective Reason For Visit: depression, SI Diagnostics Vital Signs (24Hr): Vital Signs - 24 hr 07/28/21 20:30 07/29/21 09:34 Temperature 97.3 F 97.4 F Pulse Rate 80 82 Respiratory Rate 16 16 Blood Pressure 113/76 116/74 Pulse Oximetry 98 100 Body Mass Index 22.6 Labs Results: 07/18/21 19:58 07/18/21 19:58 Discharge Plan Discharge Referrals: Physician,Unknown J [Primary Care Provider] - 1 Week Discharge Medications: No Action dextroamphetamine 5 mg tablet 7.5 mg PO QAM RF: 0 trazodone 50 mg tablet 100 mg PO BEDTIME RF: 0 lithium carbonate 150 mg capsule 150 mg PO BEDTIME RF: 0 propranolol 10 mg tablet 1 tab PO BID PRN (Reason: Anxiety) RF: 0 duloxetine 30 mg capsule,delayed release(DR/EC) 30 mg PO DAILY RF: 0 Trintellix 20 mg tablet 1 tab PO DAILY RF: 0 Assessment & Plan I spent minutes with the patient and/or on the patient floor today, greater than?50% of which was spent counseling/coordinating care.
[2021-07-29] MEDS: clonazePAM 0.5 MG TABLET PO (14:17)
[2021-07-29] MEDS: clonazePAM 1 MG TABLET PO (16:31)
[2021-07-29 19:19] VITALS: BP 114/72; PULSE 69; RESP 18; TEMP 36.2; O2SAT 100
[2021-07-29] MEDS: traZODone HCL 100 MG TABLET PO (20:11)
[2021-07-29] MEDS: traZODone HCL 50 MG TABLET PO (20:11)
[2021-07-29] MEDS: hydrOXYzine HCL 25 MG TABLET PO (20:11)
[2021-07-30] MEDS: Dextroamphetamine Sulfate 5 MG TABLET 7.5 MG PO (09:42)
[2021-07-30] MEDS: Escitalopram Oxalate 10 MG TABLET 30 MG PO (09:43)
[2021-07-30] MEDS: lamoTRIgine 25 MG TABLET PO (09:43)
[2021-07-30] MEDS: DULoxetine HCl 20 MG CAPSULE.DR PO (09:43)
[2021-07-30] MEDS: clonazePAM 0.5 MG TABLET PO (09:43)
[2021-07-30 18:00] VITALS: BP 98/61; TEMP 36.7; O2SAT 98
[2021-07-30] MEDS: traZODone HCL 100 MG TABLET PO (20:25)
[2021-07-30] MEDS: hydrOXYzine HCL 25 MG TABLET PO (20:25)
[2021-07-30] MEDS: traZODone HCL 50 MG TABLET PO (20:25)
--- NOTE | 2021-07-30 22:19 | P.PNPSI_ITS ---
Subjective Subjective Date of Service: 07/30/21 Reason For Visit: depression, SI Medical Problems Affecting Mental Status: No Interim History: Hand over hand and chart reviewed. Met with patient. She as per staff has been tearful but guarded sleep is slightly improved. She is here for medication review and understand that this will be conducted by primary team after the weekend. She was reporting that she feels depressed. Is tearful crying. Reports that she is considering lithium versus Lamictal but unsure what to do. Also notices that she has a hand tremor at times and unsure if this was related to Cymbalta. Regarding treatment decisions, she acknowledges that parents has always been an issue and therefore she may be leaning towards Lamictal versus lithium. Still reports feeling depressed, no motivation, lack of energy, poor appetite and intermittent suicidal thoughts. Does feel safe here Medication Compliance: Yes Side effects from medications: No Attending Groups: Intermittent Review of Systems Acute medical concerns: No Review of Systems Review of Systems unremarkable Mental Status Exam Mental Status Exam Narrative: pleasant and engaged. Casually dressed. Self-care fair. Depressed, tearful. Intermittent SI. No plans or intent. No psychosis. Insight and judgment Okay Diagnostics Vital Signs (24Hr): Vital Signs - 24 hr 07/30/21 18:00 Temperature 98.1 F Blood Pressure 98/61 Pulse Oximetry 98 Body Mass Index 22.6 Labs Results: 07/18/21 19:58 07/18/21 19:58 Medications Medications Current Medications Acetaminophen (Acetaminophen 325 Mg Tablet) 650 mg PO Q6H PRN PRN Reason: Headache/Pain Mild Scale (1-3) Al Hydroxide/Mg Hydroxide (Magnesium Hydrox/Alum Hydrox 30 Ml Oral.Susp) 30 ml PO Q6H PRN PRN Reason: Heartburn/Nausea Clonazepam (Clonazepam 0.5 Mg Tablet) 0.5 mg PO BID@0830,1430 [facility] Last Admin: 07/30/21 19:08 Dose: Not Given Documented by: Clonazepam (Clonazepam 0.5 Mg Tablet) 0.25 mg PO QID PRN PRN Reason: mild-moderate anxiety Dextroamphetamine Sulfate (Dextroamphetamine Sulfate 5 Mg Tablet) 7.5 mg PO DAILY [facility] Last Admin: 07/30/21 09:42 Dose: 7.5 mg Documented by: Docusate Sodium (Docusate Sodium 100 Mg Capsule) 100 mg PO DAILY PRN PRN Reason: constipation Duloxetine HCl (Duloxetine Hcl 20 Mg Capsule.Dr) 20 mg PO DAILY [facility] Last Admin: 07/30/21 09:43 Dose: 20 mg Documented by: Escitalopram Oxalate (Escitalopram Oxalate 10 Mg Tablet) 30 mg PO DAILY [facility] Last Admin: 07/30/21 09:43 Dose: 30 mg Documented by: Hydroxyzine HCl (Hydroxyzine Hcl 25 Mg Tablet) 25 mg PO BEDTIME [facility] Last Admin: 07/30/21 20:25 Dose: 25 mg Documented by: Lamotrigine (Lamotrigine 25 Mg Tablet) 25 mg PO DAILY [facility] Last Admin: 07/30/21 09:43 Dose: 25 mg Documented by: Magnesium Hydroxide (Milk Of Magnesia 30 Ml Oral.Susp) 30 ml PO DAILY PRN PRN Reason: Constipation Patient Own Medication( L- Methlyfolate 10mg Cap) 1 each PO DAILY [facility] Last Admin: 07/30/21 09:42 Dose: 1 each Documented by: Propranolol HCl (Propranolol Hcl 10 Mg Tablet) 10 mg PO BID PRN; Protocol PRN Reason: Anxiety Trazodone HCl (Trazodone Hcl 100 Mg Tablet) 100 mg PO BEDTIME [facility] Last Admin: 07/30/21 20:25 Dose: 100 mg Documented by: Trazodone HCl (Trazodone Hcl 50 Mg Tablet) 50 mg PO BEDTIME PRN PRN Reason: insomnia Last Admin: 07/30/21 20:25 Dose: 50 mg Documented by: Allergies Allergies Allergy/AdvReac Type Severity Reaction Status Date / Time nortriptyline [NORTRIPTYLINE] Allergy Unknown RASH Verified 07/20/21 10:56 Assessment & Plan Assessment & Plan (1) ANANDA (generalized anxiety disorder): Status: Acute Code(s): F41.1 - Generalized anxiety disorder (2) OCD (obsessive compulsive disorder): Status: Acute Code(s): F42.9 - Obsessive-compulsive disorder, unspecified (3) MDD (major depressive disorder), recurrent episode, severe: Status: Acute Code(s): F33.2 - Major depressive disorder, recurrent severe without psychotic features Assessment and Plan: IMPRESSION: Patient is a bright, resilient 46-year-old female with history of ANANDA, OCD, d epression intermittent SI who presents for worsening anxiety depression and SI. Patient is currently to tortured by endless worrying which causing her much anguish and difficulty when trying to make a decision. She is currently depressed with passive SI however expresses that she got closer than ever before to attempting suicide. Patient is open to medication management and also has insight to know that her OCD/anxiety interferes with her ability to make decisions and to tolerate medications long enough to get to a therapeutic dose and duration. However this insight is often dwarfed by her powerful anxious feelings, clearly evident in discussions. Hospital Course/reasoning: -patient remains tormented by severe anxiety which has triggered depression and suicidality. Patient perseverates on how she cannot live this way and is struggling to Hope that should get better, sometimes wondering if suicide will be the only way out of this trap her anxiety places in; she does not want to ki ll herself but cannot envision living with this constant anxiety. That said she is willing to engage in both therapy and medication management strategy -Patient agrees to medication plan which is to get on Lexapro and see if she can tolerate a high dose to better address her OCD/ANANDA symptoms; will also titrate Lamictal since it helps with both depression and emotional lability. Will taper off Cymbalta and Trintellix; patient has traditionally had a hard time getting off Cymbalta so will taper it slowly while increasing Lexapro. Plan is to DC lithium -07/25 remains tormented by anxiety; feels suicidal as she gets little relief. Agrees to continue with medication plan of titrating Lexapro, discontinuing Trintellix, discontinuing lithium and tapering Cymbalta or discontinuing Cymbalta. 07/26 patient is increasingly depressed, evidenced by her seemingly lack of energy to maintain worry and relentless inquiry about medication regimen.? Patient talks less, affect is more down cast and she has minimal eye contact.? She expresses continued hopelessness and SI. Mostly isolating in her room.? It is unclear if this is due to taking away Trintellix and lowering Cymbalta dose or just part of patient's process.? Will continue with plan to titrate Lexapro as fast as patient can tolerate; discussed case with Dr. Post who agrees with leaving Cymbalta at 20 mg (since 10 mg doses do not exist) while simultaneously titrating Lexapro, an effort to avoid discontinuation syndrome which is not uncommon with Cymbalta.? Heavy Equipment Sales Associate continues to wonder about titrating patient on lithium just to see if it would help, especially so as a more severe depression has seemed to somewhat replace patient's intense OCD/ANANDA symptoms.? Also, through continued discussion of patient's history, there does seem to be a pattern of episodic depression and anxiety; patient has never had an overt manic episode however the episodic nature of her symptoms remains a curiosity.? While Lamictal can also treat this, it takes at least a month to get to a minimal therapeutic dose. Will continue current regimen for now 07/28 patient feels a little better today and is not sure if it is the Lexapro or if it is just the day; she remains depressed and anxious but feels a little more hopeful that perhaps medication will eventually work.? She is considering lithium and wants to review risks/side effects further on her own 07/29 extremely depressed and anxious. Patient reports a tremor of her hands and feeling overall and seeing her body, a little like akathisia (she is already on propranolol and typically has a lower blood pressure); she is only on Cymbalta 20 and Lexapro 30 mg making it unlikely she has serotonin syndrome though it is possible she could have a touch of it (patient was on Cymbalta and Trintellix simultaneously and had mild tremor); it is unlikely that she is having discontinuation syndrome going down from only Cymbalta 30 mg to 20. Patient has a history of having psychosomatic responses to medication treatments. At this time marketing copywriter will treat patient's symptoms with clonazepam and see if it resolves on its own. Otherwise may need to discontinue Cymbalta or go to Cymbalta 20 mg every other day. -patient says in hindsight maybe she was more stable on lithium and leans towards going back on it however given her extreme anxiety with medications and marketing copywriter's hesitation to further muddy her responses to current treatment, she agrees to hold off for now PLAN: Patient on CV Q 15 minutes checks for safety Scheduled clonazepam 0.5 mg b.i.d. Will leave clonazepam 0.25 mg q.i.d. p.r.n. continue LEXAPRO 30mg; titrate as clinically determined, keeping in mind doses needed to treat OCD Continue Cymbalta to 20 mg daily (down from 30); Cymbalta does not come in a lower dosing DISCONTINUE Trintellix DISCONTINUE lithium; but still remains an option Clonazepam 0.25 mg p.r.n. for [id number] anxiety Clonazepam 0.5 mg p.r.n. for moderate to severe anxiety 07/30/2021: Patient wearing risks and benefits of lithium versus Lamictal. Will review labs guarding lithium id renal and thyroid function. I spent minutes with the patient and/or on the patient floor today, greater than?50% of which was spent counseling/coordinating care. Reason for contiued inpatient stay Substantial Risk for: harm to self and inability to function
[2021-07-31] MEDS: Escitalopram Oxalate 10 MG TABLET 30 MG PO (09:09)
[2021-07-31] MEDS: lamoTRIgine 25 MG TABLET PO (09:09)
[2021-07-31] MEDS: Dextroamphetamine Sulfate 5 MG TABLET 7.5 MG PO (09:09)
[2021-07-31] MEDS: clonazePAM 0.5 MG TABLET PO (09:09)
--- NOTE | 2021-07-31 12:36 | P.PNPSI_ITS ---
Subjective Subjective Date of Service: 07/31/21 Reason For Visit: depression, SI Medical Problems Affecting Mental Status: No Interim History: Met with patient. Continues to be depressed. Poor sleep. Appetite poor. No motivation. Suicidal thoughts but no plans or intent. Hopeless. Reports having obsessive intrusive thoughts regarding suicide. Discussed at length depression versus OCD and had to often related. Discussed lithium indications. Discussed thyroid and renal blood work in June was unremarkable. Also reviewed genetic testing profile which could help guide treatment options and direction. She did endorse that she has been on multiple medications in the past, but also did not take them for a sustained period of time and therefore they were not true trials. He discussed that we were holding Cymbalta today to see if there is any impact on her tremor. Medication Compliance: Yes Side effects from medications: No Attending Groups: Yes Review of Systems Acute medical concerns: No Review of Systems Review of Systems unremarkable Mental Status Exam Mental Status Exam Narrative: pleasant and engaged. Casually dressed. Self-care fair. Depressed, tearful. Intermittent SI. No plans or intent. No psychosis. Insight and judgment Okay Diagnostics Vital Signs (24Hr): Vital Signs - 24 hr 07/30/21 18:00 Temperature 98.1 F Blood Pressure 98/61 Pulse Oximetry 98 Body Mass Index 22.6 Labs Results: 07/18/21 19:58 07/18/21 19:58 Medications Medications Current Medications Acetaminophen (Acetaminophen 325 Mg Tablet) 650 mg PO Q6H PRN PRN Reason: Headache/Pain Mild Scale (1-3) Al Hydroxide/Mg Hydroxide (Magnesium Hydrox/Alum Hydrox 30 Ml Oral.Susp) 30 ml PO Q6H PRN PRN Reason: Heartburn/Nausea Clonazepam (Clonazepam 0.5 Mg Tablet) 0.5 mg PO BID@0830,1430 [facility] Last Admin: 07/31/21 09:09 Dose: 0.5 mg Documented by: Clonazepam (Clonazepam 0.5 Mg Tablet) 0.25 mg PO QID PRN PRN Reason: mild-moderate anxiety Dextroamphetamine Sulfate (Dextroamphetamine Sulfate 5 Mg Tablet) 7.5 mg PO DAILY [facility] Last Admin: 07/31/21 09:09 Dose: 7.5 mg Documented by: Docusate Sodium (Docusate Sodium 100 Mg Capsule) 100 mg PO DAILY PRN PRN Reason: constipation Duloxetine HCl (Duloxetine Hcl 20 Mg Capsule.) 20 mg PO DAILY [facility] Last Admin: 07/30/21 09:43 Dose: 20 mg Documented by: Escitalopram Oxalate (Escitalopram Oxalate 10 Mg Tablet) 30 mg PO DAILY [facility] Last Admin: 07/31/21 09:09 Dose: 30 mg Documented by: Hydroxyzine HCl (Hydroxyzine Hcl 25 Mg Tablet) 25 mg PO BEDTIME [facility] Last Admin: 07/30/21 20:25 Dose: 25 mg Documented by: Lamotrigine (Lamotrigine 25 Mg Tablet) 25 mg PO DAILY [facility] Last Admin: 07/31/21 09:09 Dose: 25 mg Documented by: Magnesium Hydroxide (Milk Of Magnesia 30 Ml Oral.Susp) 30 ml PO DAILY PRN PRN Reason: Constipation Patient Own Medication( L- Methlyfolate 10mg Cap) 1 each PO DAILY [facility] Last Admin: 07/31/21 09:09 Dose: 1 each Documented by: Propranolol HCl (Propranolol Hcl 10 Mg Tablet) 10 mg PO BID PRN; Protocol PRN Reason: Anxiety Trazodone HCl (Trazodone Hcl 100 Mg Tablet) 100 mg PO BEDTIME [facility] Last Admin: 07/30/21 20:25 Dose: 100 mg Documented by: Trazodone HCl (Trazodone Hcl 50 Mg Tablet) 50 mg PO BEDTIME PRN PRN Reason: insomnia Last Admin: 07/30/21 20:25 Dose: 50 mg Documented by: Allergies Allergies Allergy/AdvReac Type Severity Reaction Status Date / Time nortriptyline [NORTRIPTYLINE] Allergy Unknown RASH Verified 07/20/21 10:56 Assessment & Plan Assessment & Plan (1) ANANDA (generalized anxiety disorder): Status: Acute Code(s): F41.1 - Generalized anxiety disorder (2) OCD (obsessive compulsive disorder): Status: Acute Code(s): F42.9 - Obsessive-compulsive disorder, unspecified (3) MDD (major depressive disorder), recurrent episode, severe: Status: Acute Code(s): F33.2 - Major depressive disorder, recurrent severe without psychotic features Assessment and Plan: IMPRESSION: Patient is a bright, resilient 46-year-old female with history of ANANDA, OCD, depression intermittent SI who presents for worsening anxiety depression and SI. Patient is currently to tortured by endless worrying which causing her much anguish and difficulty when trying to make a decision. She is currently depressed with passive SI however expresses that she got closer than ever before to attempting suicide. Patient is open to medication management and also has insight to know that her OCD/anxiety interferes with her ability to make decisions and to tolerate medications long enough to get to a therapeutic dose and duration. However this insight is often dwarfed by her powerful anxious feelings, clearly evident in discussions. Hospital Course/reasoning: -patient remains tormented by severe anxiety which has triggered depression and suicidality. Patient perseverates on how she cannot live this way and is struggling to Hope that should get better, sometimes wondering if suicide will be the only way out of this trap her anxiety places in; she does not want to kill herself but cannot envision living with this constant anxiety. That said she is willing to engage in both therapy and medication management strategy -Patient agrees to medication plan which is to get on Lexapro and see if she can tolerate a high dose to better address her OCD/ANANDA symptoms; will also titrate Lamictal since it helps with both depression and emotional lability. Will taper off Cymbalta and Trintellix; patient has traditionally had a hard time getting off Cymbalta so will taper it slowly while increasing Lexapro. Plan is to DC lithium -07/25 remains tormented by anxiety; feels suicidal as she gets little relief. Agrees to continue with medication plan of titrating Lexapro, discontinuing Trintellix, discontinuing lithium and tapering Cymbalta or discontinuing Cymbalta. 07/26 patient is increasingly depressed, evidenced by her seemingly lack of energy to maintain worry and relentless inquiry about medication regimen.? Patient talks less, affect is more down cast and she has minimal eye contact.? She expresses continued hopelessness and SI. Mostly isolating in her room.? It is unclear if this is due to taking away Trintellix and lowering Cymbalta dose or just part of patient's process.? Will continue with plan to titrate Lexapro as fast as patient can tolerate; discussed case with Dr. Post who agrees w ith leaving Cymbalta at 20 mg (since 10 mg doses do not exist) while simultaneously titrating Lexapro, an effort to avoid discontinuation syndrome which is not uncommon with Cymbalta.? Shaker Plate Operator continues to wonder about titrating patient on lithium just to see if it would help, especially so as a more severe depression has seemed to somewhat replace patient's intense OCD/ANANDA symptoms.? Also, through continued discussion of patient's history, there does seem to be a pattern of episodic depression and anxiety; patient has never had an overt manic episode however the episodic nature of her symptoms remains a curiosity.? While Lamictal can also treat this, it takes at least a month to get to a minimal therapeutic dose. Will continue current regimen for now 07/28 patient feels a little better today and is not sure if it is the Lexapro or if it is just the day; she remains depressed and anxious but feels a little more hopeful that perhaps medication will eventually work.? She is considering lit hium and wants to review risks/side effects further on her own 07/29 extremely depressed and anxious. Patient reports a tremor of her hands and feeling overall and seeing her body, a little like akathisia (she is already on propranolol and typically has a lower blood pressure); she is only on Cymbalta 20 and Lexapro 30 mg making it unlikely she has serotonin syndrome though it is possible she could have a touch of it (patient was on Cymbalta and Trintellix simultaneously and had mild tremor); it is unlikely that she is having discontinuation syndrome going down from only Cymbalta 30 mg to 20. Patient has a history of having psychosomatic responses to medication treatments. At this time contract writer will treat patient's symptoms with clonazepam and see if it resolves on its own. Otherwise may need to discontinue Cymbalta or go to Cymbalta 20 mg every other day. -patient says in hindsight maybe she was more stable on lithium and leans towards going back on it however given her extreme anxiety with medications and contract writer's hesitation to further muddy her responses to current treatment, she agrees to hold off for now PLAN: Patient on CV Q 15 minutes checks for safety Scheduled clonazepam 0.5 mg b.i.d. Will leave clonazepam 0.25 mg q.i.d. p.r.n. continue LEXAPRO 30mg; titrate as clinically determined, keeping in mind doses needed to treat OCD Continue Cymbalta to 20 mg daily (down from 30); Cymbalta does not come in a lower dosing DISCONTINUE Trintellix DISCONTINUE lithium; but still remains an option Clonazepam 0.25 mg p.r.n. for [id number] anxiety Clonazepam 0.5 mg p.r.n. for moderate to severe anxiety 07/31/2021: Patient wearing risks and benefits of lithium versus Lamictal. Thyroid and renal function from June 2021 were unremarkable. Also reviewed genetic profile which may be helpful in guiding treatment planning I spent minutes with the patient and/or on the patient floor today, greater than?50% of which was spent counseling/coordinating care. Reason for contiued inpatient stay Substantial Risk for: harm to self
[2021-07-31] MEDS: clonazePAM 0.5 MG TABLET 0.25 MG PO (13:51)
[2021-07-31 18:00] VITALS: BP 108/76; PULSE 68; RESP 16; TEMP 36.8; O2SAT 99
[2021-07-31] MEDS: traZODone HCL 100 MG TABLET PO (19:52)
[2021-07-31] MEDS: hydrOXYzine HCL 25 MG TABLET PO (19:52)
[2021-08-01] MEDS: Dextroamphetamine Sulfate 5 MG TABLET 7.5 MG PO (09:44)
[2021-08-01] MEDS: Escitalopram Oxalate 10 MG TABLET 30 MG PO (09:45)
[2021-08-01] MEDS: lamoTRIgine 25 MG TABLET PO (09:47)
[2021-08-01] MEDS: DULoxetine HCl 20 MG CAPSULE.DR PO (09:47)
[2021-08-01] MEDS: traZODone HCL 100 MG TABLET PO (20:07)
[2021-08-01] MEDS: hydrOXYzine HCL 25 MG TABLET PO (20:07)
[2021-08-01 20:40] VITALS: PULSE 78; TEMP 37.1; O2SAT 97
--- NOTE | 2021-08-01 20:48 | P.PNPSI_ITS ---
Subjective Subjective Date of Service: 08/01/21 Reason For Visit: depression, SI Interim History: pt tearful, in emotional distress. she says she's doing bad. She is feeling hopeless...suicidal. She keeps feeling the desire to hurt herself and has thoughts of trying to throw chairs. Pt says she wishes she could kill herself without any repercussions; she wishes suicide was legal and wishes she were . Pt breaks down in sobs saying she hates medication and can not stop feeling like they hurt her more than the help her. regarding medication, pt says she thinks stopping Cymbalta reduced her tremors and internal agitation some and agrees to fully dc. Pt again went over and over whether to re-try lithium; she concluded she would like to restart it and get to 300mg Patients best friend since childhood, Fang, came to unit and patient wanted her to be a part of meeting. Fang reported that she thinks patient was doing overall better for a while after she was discharged from the Hospital in 2019 and on [place] 300mg; she agrees pt only seemed truly happy when in a relati onship but that her mood was better prior to this. She also explained that about 5 days prior to pt's last admission in 2019, she was very agitated, throwing stuff around the house, angry, yelling and having insomnia; she remained this way on the unit until she got Zyprexa which broke this agitated state. As law writer asked Fang questions, patient chimed in and asked do you think i'm bipolar? Sanitation Truck Driver explained that she does not present as text-book bipolar, but that it's worth noting that patients bouts of depression/severe anxiety are episodic (regardless if also seemingly situational), she reports having done a better in the past on lithium and she has a hx of having almost a week of what could be described as a mixed manic episode. Patient agreed with this assessment and as mentioned agreed to re-try lithium. Mental Status Exam Mental Status Exam Narrative: Pt is alert and oriented; behavior is cooperative; dressed in casual attire,?hair pulled back with marginal hygiene; mood is described is depressed and anxious, tearful, downcast affect;? eye contact minimal, mostly looking do wnward; Speech is normal rate, normal volume;; psychomotor retardation present; thought process is organized, linear and goal directed; thought content mostly on hopelessness of recovery, as an option to end sadness; intermittently TC can get sidelined by chronic, relentless worries of various things, most prominently over medication regimen; otherwise it is pertinent to relevant topics and without any delusional content, paranoid ideations or grandiosity; SI; No HI; No AVH and no evidence of perceptual disturbance. ?Patients insight and judgment are impaired. Diagnostics Vital Signs (24Hr): Vital Signs - 24 hr 08/01/21 20:40 Temperature 98.7 F Pulse Rate 78 Pulse Oximetry 97 Body Mass Index 22.6 Labs Results: 07/18/21 19:58 07/18/21 19:58 Medications Medications Current Medications Acetaminophen (Acetaminophen 325 Mg Tablet) 650 mg PO Q6H PRN PRN Reason: Headache/Pain Mild Scale (1-3) Al Hydroxide/Mg Hydroxide (Magnesium Hydrox/Alum Hydrox 30 Ml Oral.Susp) 30 ml PO Q6H PRN PRN Reason: Heartburn/Nausea Clonazepam (Clonazepam 0.5 Mg Tablet) 0.5 mg PO BID@0830,1430 [facility] BEDS AT [facility] Last Admin: 08/01/21 16:54 Dose: Not Given Documented by: Clonazepam (Clonazepam 0.5 Mg Tablet) 0.25 mg PO QID PRN PRN Reason: mild-moderate anxiety Last Admin: 07/31/21 13:51 Dose: 0.25 mg Documented by: Dextroamphetamine Sulfate (Dextroamphetamine Sulfate 5 Mg Tablet) 7.5 mg PO DAILY [facility]S [facility]CLUDE 234 BEDS AT [facility] Last Admin: 08/01/21 09:44 Dose: 7.5 mg Documented by: Docusate Sodium (Docusate Sodium 100 Mg Capsule) 100 mg PO DAILY PRN PRN Reason: constipation Escitalopram Oxalate (Escitalopram Oxalate 10 Mg Tablet) 30 mg PO DAILY [facility]S [facility]CLUDE 234 BEDS AT [facility] Last Admin: 08/01/21 09:45 Dose: 30 mg Documented by: Hydroxyzine HCl (Hydroxyzine Hcl 25 Mg Tablet) 25 mg PO BEDTIME [facility]S [facility]CLUDE 234 BEDS AT THE [facility] Last Admin: 08/01/21 20:07 Dose: 25 mg Documented by: Hydroxyzine HCl (Hydroxyzine Hcl 10 Mg Tablet) 10 mg PO TID PRN PRN Reason: mild anxiety Lamotrigine (Lamotrigine 25 Mg Tablet) 25 mg PO DAILY [facility]S [facility]CLUDE 234 BEDS AT [facility] Last Admin: 08/01/21 09:47 Dose: 25 mg Documented by: [place] Carbonate ([place] Carbonate 300 Mg Tablet) 150 mg PO ONCE ONE Stop: 08/01/21 20:47 [place] Carbonate ([place] Carbonate Er 300 Mg Tablet.Er) 300 mg PO BEDTIME [facility] Magnesium Hydroxide (Milk Of Magnesia 30 Ml Oral.Susp) 30 ml PO DAILY PRN PRN Reason: Constipation Patient Own Medication( L- Methlyfolate 10mg Cap) 1 each PO DAILY [facility] Last Admin: 08/01/21 09:48 Dose: 1 each Documented by: Propranolol HCl (Propranolol Hcl 10 Mg Tablet) 10 mg PO BID PRN; Protocol PRN Reason: Anxiety Trazodone HCl (Trazodone Hcl 100 Mg Tablet) 100 mg PO BEDTIME [facility] Last Admin: 08/01/21 20:07 Dose: 100 mg Documented by: Trazodone HCl (Trazodone Hcl 50 Mg Tablet) 50 mg PO BEDTIME PRN PRN Reason: insomnia Last Admin: 07/30/21 20:25 Dose: 50 mg Documented by: Allergies Allergies Allergy/AdvReac Type Severity Reaction Status Date / Time nortriptyline [NORTRIPTYLINE] Allergy Unknown RASH Verified 07/20/21 10:56 Assessment & Plan Assessment & Plan (1) ANANDA (generalized anxiety disorder): Status: Acute Code(s): F41.1 - Generalized anxiety disorder (2) OCD (obsessive compulsive disorder): Status: Acute Code(s): F42.9 - Obsessive-compulsive disorder, unspecified (3) MDD (major depressive disorder), recurrent episode, severe: Status: Acute Code(s): F33.2 - Major depressive disorder, recurrent severe without psychotic features Assessment and Plan: IMPRESSION: Patient is a bright, resilient 46-year-old female with history of ANANDA, OCD, depression intermittent SI who presents for worsening anxiety depression and SI. Patient is currently to tortured by endless worrying which causing her much anguish and difficulty when trying to make a decision. She is currently depressed with passive SI however expresses that she got closer than ever before to attempting suicide. Patient is open to medication management and also has insight to know that her OCD/anxiety interferes with her ability to make decisions and to tolerate medications long enough to get to a therapeutic dose and duration. However this insight is often dwarfed by her powerful anxious feelings, clearly evident in discussions. Hospital Course/reasoning: -patient remains tormented by severe anxiety which has triggered depression and suicidality. Patient perseverates on how she cannot live this way and is struggling to Hope that should get better, sometimes wondering if suicide will be the only way out of this trap her anxiety places in; she does not want to kill herself but cannot envision living with this constant anxiety. That said she is willing to engage in both therapy and medication management strategy -Patient agrees to medication plan which is to get on Lexapro and see if she can tolerate a high dose to better address her OCD/ANANDA symptoms; will also titrate Lamictal since it helps with both depression and emotional lability. Will taper off Cymbalta and Trintellix; patient has traditionally had a hard time getting off Cymbalta so will taper it slowly while increasing Lexapro. Plan is to DC lithium -07/25 remains tormented by anxiety; feels suicidal as she gets little relief. Agrees to continue with medication plan of titrating Lexapro, discontinuing Trintellix, discontinuing lithium and tapering Cymbalta or discontinuing Cymbalta. 07/26 patient is increasingly depressed, evidenced by her seemingly lack of energy to maintain worry and relentless inquiry about medication regimen.? Patient talks less, affect is more down cast and she has minimal eye contact.? She expresses continued hopelessness and SI. Mostly isolating in her room.? It is unclear if this is due to taking away Trintellix and lowering Cymbalta dose or just part of patient's process.? Will continue with plan to titrate Lexapro as fast as patient can tolerate; discussed case with Dr. Post who agrees with leaving Cymbalta at 20 mg (since 10 mg doses do not exist) while simultaneously titrating Lexapro, an effort to avoid discontinuation syndrome which is not uncommon with Cymbalta.? Sanitation Truck Driver continues to wonder about titrating patient on lithium just to see if it would help, especially so as a more severe depression has seemed to somewhat replace patient's intense OCD/ANANDA symptoms.? Also, through continued discussion of patient's history, there does seem to be a pattern of episodic depression and anxiety; patient has never had an overt manic episode however the episodic nature of her symptoms remains a curiosity.? While Lamictal can also treat this, it takes at least a month to get to a minimal therapeutic dose. Will continue current regimen for now 07/28 patient feels a little better today and is not sure if it is the Lexapro or if it is just the day; she remains depressed and anxious but feels a little more hopeful that perhaps medication will eventually work.? She is considering lithium and wants to review risks/side effects further on her own 07/29 extremely depressed and anxious. Patient reports a tremor of her hands and feeling overall and seeing her body, a little like akathisia (she is already on propranolol and typically has a lower blood pressure); she is only on Cymbalta 20 and Lexapro 30 mg making it unlikely she has serotonin syndrome though it is possible she could have a touch of it (patient was on Cymbalta and Trintellix simultaneously and had mild tremor); it is unlikely that she is having discontinuation syndrome going down from only Cymbalta 30 mg to 20. Patient has a history of having psychosomatic responses to medication treatments. At this time law writer will treat patient's symptoms with clonazepam and see if it resolves on its own. Otherwise may need to discontinue Cymbalta or go to Cymbalta 20 mg every other day. -patient says in hindsight maybe she was more stable on lithium and leans towards going back on it however given her extreme anxiety with medications and law writer's hesitation to further muddy her responses to current treatment, she agrees to hold off for now -tremor seemed to resolve when holding Cymbalta so will dc it -patient remains suicidal due to hopelessness and tormented by anxiety and depression 08/01 Patients best friend since childhood, Fang reports: -patient did better when discharged from the Hospital in 2019 and on [place] 300mg, prior to getting into a relationship -5 days prior to pt's last admission in 2019, she was very agitated, throwing stuff around the house, angry, yelling and having insomnia until she took Zypr exa which broke this agitated state. -Bipolar dx? Pt does not present with text-book bipolar symptoms/hx. However, it's worth noting that patients bouts of depression/severe anxiety are episodic (regardless if also seemingly situational),, she reports hx of having improved mood on lithium and she has a hx of having almost a week of what could be described as a mixed manic episode. While this dx is inconclusive, [place] also is used to treat chronic suicidality and depression making this a reasonable choice. Pt will stay on lamictal titration while trying lithium; If patient significantly improves with lithium trial, will dc Lamictal. PLAN: Patient on CV Q 15 minutes checks for safety re-START [place] 150mg; will titrate to 300mg qhs Scheduled clonazepam 0.5 mg b.i.d. Will leave clonazepam 0.25 mg q.i.d. p.r.n. continue LEXAPRO 30mg; titrate as clinically determined, keeping in mind doses needed to treat OCD DC Cymbalta for now; seems to have caused some tremor in combo with increased Lexapro; can restart if pt develops discontinuation syndrome. DISCONTINUEd Trintellix Clonazepam 0.25 mg p.r.n. for [id number] anxiety Clonazepam 0.5 mg p.r.n. for moderate to severe anxiety I spent minutes with the patient and/or on the patient floor today, greater than?50% of which was spent counseling/coordinating care. Reason for contiued inpatient stay Substantial Risk for: harm to self and inability to function
[2021-08-01] MEDS: Lithium Carbonate 300 MG TABLET 150 MG PO (21:04)
[2021-08-02] MEDS: Escitalopram Oxalate 10 MG TABLET 30 MG PO (09:09)
[2021-08-02] MEDS: Dextroamphetamine Sulfate 5 MG TABLET 7.5 MG PO (09:09)
[2021-08-02] MEDS: lamoTRIgine 25 MG TABLET PO (09:09)
[2021-08-02] MEDS: clonazePAM 0.5 MG TABLET PO (09:10)
[2021-08-02 10:46] VITALS: BP 100/60; PULSE 99; RESP 16; RESP 18
[2021-08-02] MEDS: traZODone HCL 100 MG TABLET PO (20:08)
[2021-08-02] MEDS: Lithium Carbonate ER 300 MG TABLET.ER PO (20:08)
[2021-08-02] MEDS: hydrOXYzine HCL 25 MG TABLET PO (20:08)
--- NOTE | 2021-08-02 20:35 | HO.PSYCHPN ---
Subjective Subjective Date of Service: 08/02/21 Reason For Visit: depression, SI Interim History: pt remains severely depressed and wanting to be . She remains hopeless and suicidal under weight of continued anxiety and depression. Pt says lithium was tolerated last night; agrees to increase dose. She continues to ask the same questions about medication side-effect, forgetting yesterdays conversation. pt shared that her maternal grandmother had manic episodes, but was told this was triggered by medication Mental Status Exam Mental Status Exam Narrative: Pt is alert and oriented; behavior is cooperative; dressed in casual attire,?hair pulled back with marginal hygiene; mood is described as depressed and anxious; she is tearful with downcast affect;? eye contact minimal, mostly looking downward; Speech is normal rate, but soft volume; psychomotor retardation?remains; thought process is organized, linear and goal directed; thought content mostly on hopelessness of recovery, as an option to end sadness; intermittently TC can get sidelined by chronic, relentless worries of various things, most prominently over medication regimen; otherwise it is pertinent to relevant topics and without any delusional content, paranoid ideations or grandiosity; SI; No HI; No AVH and no evidence of perceptual disturbance. ?Patients insight and judgment are impaired. Diagnostics Vital Signs (24Hr): Vital Signs - 24 hr 08/01/21 20:40 08/02/21 10:46 Temperature 98.7 F Pulse Rate 78 99 Respiratory Rate 18 Blood Pressure 100/60 Pulse Oximetry 97 Body Mass Index 22.6 Labs Results: 07/18/21 19:58 07/18/21 19:58 Medications Medications Current Medications Acetaminophen (Acetaminophen 325 Mg Tablet) 650 mg PO Q6H PRN PRN Reason: Headache/Pain Mild Scale (1-3) Al Hydroxide/Mg Hydroxide (Magnesium Hydrox/Alum Hydrox 30 Ml Oral.Susp) 30 ml PO Q6H PRN PRN Reason: Heartburn/Nausea Clonazepam (Clonazepam 0.5 Mg Tablet) 0.5 mg PO BID@0830,1430 [facility] Last Admin: 08/02/21 14:09 Dose: Not Given Documented by: Clonazepam (Clonazepam 0.5 Mg Tablet) 0.25 mg PO QID PRN PRN Reason: mild-moderate anxiety Last Admin: 07/31/21 13:51 Dose: 0.25 mg Documented by: Dextroamphetamine Sulfate (Dextroamphetamine Sulfate 5 Mg Tablet) 7.5 mg PO DAILY [facility] Last Admin: 08/02/21 09:09 Dose: 7.5 mg Documented by: Docusate Sodium (Docusate Sodium 100 Mg Capsule) 100 mg PO DAILY PRN PRN Reason: constipation Escitalopram Oxalate (Escitalopram Oxalate 10 Mg Tablet) 30 mg PO DAILY [facility] Last Admin: 08/02/21 09:09 Dose: 30 mg Documented by: Hydroxyzine HCl (Hydroxyzine Hcl 25 Mg Tablet) 25 mg PO BEDTIME [facility] Last Admin: 08/02/21 20:08 Dose: 25 mg Documented by: Hydroxyzine HCl (Hydroxyzine Hcl 10 Mg Tablet) 10 mg PO TID PRN PRN Reason: mild anxiety Lamotrigine (Lamotrigine 25 Mg Tablet) 25 mg PO DAILY [facility] Last Admin: 08/02/21 09:09 Dose: 25 mg Documented by: [place] Carbonate ([place] Carbonate Er 300 Mg Tablet.Er) 300 mg PO BEDTIME [facility] Last Admin: 08/02/21 20:08 Dose: 300 mg Documented by: Magnesium Hydroxide (Milk Of Magnesia 30 Ml Oral.Susp) 30 ml PO DAILY PRN PRN Reason: Constipation Patient Own Medication( L- Methlyfolate 10mg Cap) 1 each PO DAILY [facility] Last Admin: 08/02/21 09:09 Dose: 1 each Documented by: Propranolol HCl (Propranolol Hcl 10 Mg Tablet) 10 mg PO BID PRN; Protocol PRN Reason: Anxiety Trazodone HCl (Trazodone Hcl 100 Mg Tablet) 100 mg PO BEDTIME [facility] Last Admin: 08/02/21 20:08 Dose: 100 mg Documented by: Trazodone HCl (Trazodone Hcl 50 Mg Tablet) 50 mg PO BEDTIME PRN PRN Reason: insomnia Last Admin: 07/30/21 20:25 Dose: 50 mg Documented by: Allergies Allergies Allergy/AdvReac Type Severity Reaction Status Date / Time nortriptyline [NORTRIPTYLINE] Allergy Unknown RASH Verified 07/20/21 10:56 Assessment & Plan Assessment & Plan (1) ANANDA (generalized anxiety disorder): Status: Acute Code(s): F41.1 - Generalized anxiety disorder (2) OCD (obsessive compulsive disorder): Status: Acute Code(s): F42.9 - Obsessive-compulsive disorder, unspecified (3) MDD (major depressive disorder), recurrent episode, severe: Status: Acute Code(s): F33.2 - Major depressive disorder, recurrent severe without psychotic features Assessment and Plan: IMPRESSION: Patient is a bright, resilient 46-year-old female with history of ANANDA, OCD, depression intermittent SI who presents for worsening anxiety depression and SI. Patient is currently to tortured by endless worrying which causing her much anguish and difficulty when trying to make a decision. She is currently depressed with passive SI however expresses that she got closer than ever before to attempting suicide. Patient is open to medication management and also has insight to know that her OCD/anxiety interferes with her ability to make decisions and to tolerate medications long enough to get to a therapeutic dose and duration. However this insight is often dwarfed by her powerful anxious feelings, clearly evident in discussions. Hospital Course/reasoning: -patient remains tormented by severe anxiety which has triggered depression and suicidality. Patient perseverates on how she cannot live this way and is struggling to Hope that should get better, sometimes wondering if suicide will be the only way out of this trap her anxiety places in; she does not want to kill herself but cannot envision living with this constant anxiety. That said she is willing to engage in both therapy and medication management strategy -Patient agrees to medication plan which is to get on Lexapro and see if she can tolerate a high dose to better address her OCD/ANANDA symptoms; will also titrate Lamictal since it helps with both depression and emotional lability. Will taper off Cymbalta and Trintellix; patient has traditionally had a hard time getting off Cymbalta so will taper it slowly while increasing Lexapro. Plan is to DC lithium -07/25 remains tormented by anxiety; feels suicidal as she gets little relief. Agrees to continue with medication plan of titrating Lexapro, discontinuing Trintellix, discontinuing lithium and tapering Cymbalta or discontinuing Cymbalta. 07/26 patient is increasingly depressed, evidenced by her seemingly lack of energy to maintain worry and relentless inquiry about medication regimen.? Patient talks less, affect is more down cast and she has minimal eye contact.? She expresses continued hopelessness and SI. Mostly isolating in her room.? It is unclear if this is due to taking away Trintellix and lowering Cymbalta dose or just part of patient's process.? Will continue with plan to titrate Lexapro as fast as patient can tolerate; discussed case with Dr. Post who agrees with leaving Cymbalta at 20 mg (since 10 mg doses do not exist) while simultaneously titrating Lexapro, an effort to avoid discontinuation syndrome which is not uncommon with Cymbalta.? Integration Developer continues to wonder about titrating patient on lithium just to see if it would help, especially so as a more severe depression has seemed to somewhat replace patient's intense OCD/ANANDA symptoms.? Also, through continued discussion of patient's history, there does seem to be a pattern of episodic depression and anxiety; patient has never had an overt manic episode however the episodic nature of her symptoms remains a curiosity.? While Lamictal can also treat this, it takes at least a month to get to a minimal therapeutic dose. Will continue current regimen for now 07/28 patient feels a little better today and is not sure if it is the Lexapro or if it is just the day; she remains depressed and anxious but feels a little more hopeful that perhaps medication will eventually work.? She is considering lithium and wants to review risks/side effects further on her own 07/29 extremely depressed and anxious. Patient reports a tremor of her hands and feeling overall and seeing her body, a little like akathisia (she is already on propranolol and typically has a lower blood pressure); she is only on Cymbalta 20 and Lexapro 30 mg making it unlikely she has serotonin syndrome though it is possible she could have a touch of it (patient was on Cymbalta and Trintellix simultaneously and had mild tremor); it is unlikely that she is having discontinuation syndrome going down from only Cymbalta 30 mg to 20. Patient has a history of having psychosomatic responses to medication treatments. At this time functional tester typewriters will treat patient's symptoms with clonazepam and see if it resolves on its own. Otherwise may need to discontinue Cymbalta or go to Cymbalta 20 mg every other day. -patient says in hindsight maybe she was more stable on lithium and leans towards going back on it however given her extreme anxiety with medications and functional tester typewriters's hesitation to further muddy her responses to current treatment, she agrees to hold off for now -tremor seemed to resolve when holding Cymbalta so will dc it -patient remains suicidal due to hopelessness and tormented by anxiety and depression 08/01 Patients best friend since childhood, Fang reports: -patient did better when discharged from the Hospital in 2019 and on [place] 300mg, prior to getting into a relationship -5 days prior to pt's last admission in 2019, she was very agitated, throwing stuff around the house, angry, yelling and having insomnia until she took Zyprexa which broke this agitated state. 08/02remains severely depressed and suicidal -Bipolar dx? Pt does not present with text-book bipolar symptoms/hx. However, it's worth noting that patients bouts of depression/severe anxiety are episodic (regardless if also seemingly situational),, she reports hx of having improved mood on lithium and she has a hx of having almost a week of what could be described as a mixed manic episode. While this dx is inconclusive, [place] also is used to treat chronic suicidality and depression making this a reasonable choice. Pt will stay on lamictal titration while trying lithium; If patient significantly improves with lithium trial, will dc Lamictal. PLAN: Patient on CV Q 15 minutes checks for safety INCREASED TO [place] ER 300mg qhs (restarted) Scheduled clonazepam 0.5 mg b.i.d. Will leave clonazepam 0.25 mg q.i.d. p.r.n. continue LEXAPRO 30mg; titrate as clinically determined, keeping in mind doses needed to treat OCD DC Cymbalta for now; seems to have caused some tremor in combo with increased Lexapro; can restart if pt develops discontinuation syndrome. DISCONTINUEd Trintellix Clonazepam 0.25 mg p.r.n. for [id number] anxiety Clonazepam 0.5 mg p.r.n. for moderate to severe anxiety I spent minutes with the patient and/or on the patient floor today, greater than?50% of which was spent counseling/coordinating care. Reason for contiued inpatient stay Substantial Risk for: harm to self
[2021-08-03] MEDS: clonazePAM 0.5 MG TABLET PO ×2 (08:23→18:02)
[2021-08-03] MEDS: Dextroamphetamine Sulfate 5 MG TABLET 7.5 MG PO (09:34)
[2021-08-03] MEDS: Escitalopram Oxalate 10 MG TABLET 30 MG PO (09:35)
[2021-08-03] MEDS: lamoTRIgine 25 MG TABLET PO (09:35)
[2021-08-03] MEDS: clonazePAM 0.5 MG TABLET 0.25 MG PO (09:35)
--- NOTE | 2021-08-03 15:25 | P.PNPSI_ITS ---
Subjective Subjective Date of Service: 08/03/21 Reason For Visit: depression, SI Interim History: Today pt told SW, repeatedly that she wants to and said ?even now I?m looking for how I can hang myself in this room.? She asked SW not to tell anyone because she doesn?t want to be on a 1:1. Turret Punch Press Operator changed patient to q5min checks. Turret Punch Press Operator met with patient who was able to say that she will not try to hurt herself on the unit; she reports she woke up very anxious and hopeless this morning and could not stop wanting to be . She says she's calmed down some and though her depression and anxiety remain overwhelming, she says she can stay safe. Pt agreed to titrate [place] to 450mg (though this 450mg [place] is and fairly comparable to Lithobid 300mg). Patient pt tried a group but got an overwhelming anxiety that triggered her to leave; she says she cannot stop incessant worry about med side-effects, about her hair falling out...and asks the same questions over and over. Mental Status Exam Mental Status Exam Narrative: no change Pt is alert and oriented; behavior is cooperative; dressed in casual attire,?hair pulled back with marginal hygiene; mood is described as depressed and anxious; she is tearful with downcast affect;? eye contact minimal, mostly looking downward; Speech is normal rate, but soft volume; psychomotor retardation?remains; thought process is organized, linear and goal directed; thought content mostly on hopelessness of recovery, as an option to end sadness; intermittently TC can get sidelined by chronic, relentless worries of various things, most prominently over medication regimen; otherwise it is pertinent to relevant topics and without any delusional content, paranoid ideations or grandiosity; SI; No HI; No AVH and no evidence of perceptual disturbance. ?Patients insight and judgment are impaired. Diagnostics Vital Signs (24Hr): Body Mass Index 22.6 Labs Results: 07/18/21 19:58 07/18/21 19:58 Medications Medications Current Medications Acetaminophen (Acetaminophen 325 Mg Tablet) 650 mg PO Q6H PRN PRN Reason: Headache/Pain Mild Scale (1-3) Al Hydroxide/Mg Hydroxide (Magnesium Hydrox/Alum Hydrox 30 Ml Oral.Susp) 30 ml PO Q6H PRN PRN Reason: Heartburn/Nausea Clonazepam (Clonazepam 0.5 Mg Tablet) 0.5 mg PO BID@0830,1430 [facility] Last Admin: 08/03/21 14:58 Dose: Not Given Documented by: Clonazepam (Clonazepam 0.5 Mg Tablet) 0.25 mg PO QID PRN PRN Reason: mild-moderate anxiety Last Admin: 08/03/21 09:35 Dose: 0.25 mg Documented by: Dextroamphetamine Sulfate (Dextroamphetamine Sulfate 5 Mg Tablet) 7.5 mg PO DAILY [facility] Last Admin: 08/03/21 09:34 Dose: 7.5 mg Documented by: Docusate Sodium (Docusate Sodium 100 Mg Capsule) 100 mg PO DAILY PRN PRN Reason: constipation Escitalopram Oxalate (Escitalopram Oxalate 10 Mg Tablet) 30 mg PO DAILY [facility] Last Admin: 08/03/21 09:35 Dose: 30 mg Documented by: Hydroxyzine HCl (Hydroxyzine Hcl 25 Mg Tablet) 25 mg PO BEDTIME [facility] Last Admin: 08/02/21 20:08 Dose: 25 mg Documented by: Hydroxyzine HCl (Hydroxyzine Hcl 10 Mg Tablet) 10 mg PO TID PRN PRN Reason: mild anxiety Lamotrigine (Lamotrigine 25 Mg Tablet) 25 mg PO DAILY [facility] Last Admin: 08/03/21 09:35 Dose: 25 mg Documented by: [place] Carbonate ([place] Carbonate Er 300 Mg Tablet.Er) 300 mg PO BEDTIME [facility] Last Admin: 08/02/21 20:08 Dose: 300 mg Documented by: Magnesium Hydroxide (Milk Of Magnesia 30 Ml Oral.Susp) 30 ml PO DAILY PRN PRN Reason: Constipation Patient Own Medication( L- Methlyfolate 10mg Cap) 1 each PO DAILY [facility] Last Admin: 08/03/21 09:36 Dose: 1 each Documented by: Propranolol HCl (Propranolol Hcl 10 Mg Tablet) 10 mg PO BID PRN; Protocol PRN Reason: Anxiety Trazodone HCl (Trazodone Hcl 100 Mg Tablet) 100 mg PO BEDTIME [facility] Last Admin: 08/02/21 20:08 Dose: 100 mg Documented by: Trazodone HCl (Trazodone Hcl 50 Mg Tablet) 50 mg PO BEDTIME PRN PRN Reason: insomnia Last Admin: 07/30/21 20:25 Dose: 50 mg Documented by: Allergies Allergies Allergy/AdvReac Type Severity Reaction Status Date / Time nortriptyline [NORTRIPTYLINE] Allergy Unknown RASH Verified 07/20/21 10:56 Assessment & Plan Assessment & Plan (1) ANANDA (generalized anxiety disorder): Status: Acute Code(s): F41.1 - Generalized anxiety disorder (2) OCD (obsessive compulsive disorder): Status: Acute Code(s): F42.9 - Obsessive-compulsive disorder, unspecified (3) MDD (major depressive disorder), recurrent episode, severe: Status: Acute Code(s): F33.2 - Major depressive disorder, recurrent severe without psychotic features Assessment and Plan: IMPRESSION: Patient is a bright, resilient 46-year-old female with history of ANANDA, OCD, depression intermittent SI who presents for worsening anxiety depression and SI. Patient is currently to tortured by endless worrying which causing her much anguish and difficulty when trying to make a decision. She is currently depressed with passive SI however expresses that she got closer than ever before to attempting suicide. Patient is open to medication management and also has insight to know that her OCD/anxiety interferes with her ability to make decisions and to tolerate medications long enough to get to a therapeutic dose and duration. However this insight is often dwarfed by her powerful anxious feelings, clearly evident in discussions. Hospital Course/reasoning: -patient remains tormented by severe anxiety which has triggered depression and suicidality. Patient perseverates on how she cannot live this way and is struggling to Hope that should get better, sometimes wondering if suicide will be the only way out of this trap her anxiety places in; she does not want to kill herself but cannot envision living with this constant anxiety. That said she is willing to engage in both therapy and medication management strategy -Patient agrees to medication plan which is to get on Lexapro and see if she can tolerate a high dose to better address her OCD/ANANDA symptoms; will also titrate Lamictal since it helps with both depression and emotional lability. Will taper off Cymbalta and Trintellix; patient has traditionally had a hard time getting off Cymbalta so will taper it slowly while increasing Lexapro. Plan is to DC lithium -07/25 remains tormented by anxiety; feels suicidal as she gets little relief. Agrees to continue with medication plan of titrating Lexapro, discontinuing Trintellix, discontinuing lithium and tapering Cymbalta or discontinuing Cymbalta. 07/26 patient is increasingly depressed, evidenced by her seemingly lack of energy to maintain worry and relentless inquiry about medication regimen.? Patient talks less, affect is more down cast and she has minimal eye contact.? She expresses continued hopelessness and SI. Mostly isolating in her room.? It is unclear if this is due to taking away Trintellix and lowering Cymbalta dose or just part of patient's process.? Will continue with plan to titrate Lexapro as fast as patient can tolerate; discussed case with Dr. Post who agrees with leaving Cymbalta at 20 mg (since 10 mg doses do not exist) while simultaneously titrating Lexapro, an effort to avoid discontinuation syndrome which is not uncommon with Cymbalta.? Turret Punch Press Operator continues to wonder about titrating patient on lithium just to see if it would help, especially so as a more severe depression has seemed to somewhat replace patient's intense OCD/ANANDA symptoms.? Also, through continued discussion of patient's history, there does seem to be a pattern of episodic depression and anxiety; patient has never had an overt manic episode however the episodic nature of her symptoms remains a curiosity.? While Lamictal can also treat this, it takes at least a month to get to a minimal therapeutic dose. Will continue current regimen for now 07/28 patient feels a little better today and is not sure if it is the Lexapro or if it is just the day; she remains depressed and anxious but feels a little more hopeful that perhaps medication will eventually work.? She is considering lithium and wants to review risks/side effects further on her own 07/29 extremely depressed and anxious. Patient reports a tremor of her hands and feeling overall and seeing her body, a little like akathisia (she is already on propranolol and typically has a lower blood pressure); she is only on Cymbalta 20 and Lexapro 30 mg making it unlikely she has serotonin syndrome though it is possible she could have a touch of it (patient was on Cymbalta and Trintellix simultaneously and had mild tremor); it is unlikely that she is having discontinuation syndrome going down from only Cymbalta 30 mg to 20. Patient has a history of having psychosomatic responses to medication treatments. At this time food writer will treat patient's symptoms with clonazepam and see if it resolves on its own. Otherwise may need to discontinue Cymbalta or go to Cymbalta 20 mg every other day. -patient says in hindsight maybe she was more stable on lithium and leans towards going back on it however given her extreme anxiety with medications and food writer's hesitation to further muddy her responses to current treatment, she agrees to hold off for now -tremor seemed to resolve when holding Cymbalta so will dc it -patient remains suicidal due to hopelessness and tormented by anxiety and depression 08/01 Patients best friend since childhood, Fang reports: -patient did better when discharged from the Hospital in 2019 and on [place] 300mg, prior to getting into a relationship -5 days prior to pt's last admission in 2018, she was very agitated, throwing stuff around the house, angry, yelling and having insomnia until she took Zyprexa which broke this agitated state. 08/02remains severely depressed, very anxious; she is suicidal and had plans/intention to self harm today. this resolved, but pt remains severely disabled by her symptoms and is unsafe for discharge. -Bipolar dx? Pt does not present with text-book bipolar symptoms/hx. However, it's worth noting that patients bouts of depression/severe anxiety are episodic (regardless if also seemingly situational),, she reports hx of having improved mood on lithium and she has a hx of having almost a week of what could be described as a mixed manic episode. While this dx is inconclusive, [place] also is used to treat chronic suicidality and depression making this a reasonable choice. Pt will stay on lamictal titration while trying lithium; If patient significantly improves with lithium trial, will dc Lamictal. PLAN: Patient on CV changed to Q 5 minutes checks for safety INCREASED TO [place] ER 450mg qhs Scheduled clonazepam 0.5 mg b.i.d. Will leave clonazepam 0.25 mg q.i.d. p.r.n. continue LEXAPRO 30mg; titrate as clinically determined, keeping in mind doses needed to treat OCD DC Cymbalta for now; seems to have caused some tremor in combo with increased Lexapro; can restart if pt develops discontinuation syndrome. DISCONTINUEd Trintellix Clonazepam 0.25 mg p.r.n. for [id number] anxiety Clonazepam 0.5 mg p.r.n. for moderate to severe anxiety I spent minutes with the patient and/or on the patient floor today, greater than?50% of which was spent counseling/coordinating care. Reason for contiued inpatient stay Substantial Risk for: harm to self
[2021-08-03 18:00] VITALS: BP 98/65; PULSE 78; TEMP 36.5; O2SAT 98
[2021-08-03] MEDS: traZODone HCL 100 MG TABLET PO (20:01)
[2021-08-03] MEDS: hydrOXYzine HCL 25 MG TABLET PO (20:01)
[2021-08-03] MEDS: Lithium Carbonate ER 450 MG TABLET.ER PO (20:02)
[2021-08-04 07:00] VITALS: BMI 22.8
[2021-08-04] MEDS: lamoTRIgine 25 MG TABLET PO (08:57)
[2021-08-04] MEDS: Escitalopram Oxalate 10 MG TABLET 30 MG PO (08:57)
[2021-08-04] MEDS: hydrOXYzine HCL 10 MG TABLET PO (09:01)
--- NOTE | 2021-08-04 09:41 | P.PNPSI_ITS ---
Subjective Subjective Date of Service: 08/04/21 Reason For Visit: depression, SI Interim History: Remains severely depressed, intermittently crying, lying in bed under covers. Movements are slow, face down cast. Patient says she is going back and forth between crying and being angry. She says I wants to throw things... Smash things...I do not want to hurt anybody...i'm just angry and i want to scream...I feel like I'm going to lose it and just start screaming...I hate myself... Patient shared that 1 reason why she is afraid to go up on higher doses is that she knows from her history that her OCD will take over and she will start incessantly wearing about the dose being too high and potential side effects. It will be so intolerable for her that she will just have to come down. She says she will just get so scared she will have to lower it. Patient remains willing to titrate Lamictal which will go up to 50 mg tomorrow. She does not want to increase lithium dose at this point. Also she is afraid to increase Lexapro since other things are increasing. Patient approached another provider on the unit if she has patients who tolerated lithium; then asked if their hair fell out something she is very worried about as a side effect Mental Status Exam Mental Status Exam Narrative: no change Pt is alert and oriented; behavior is cooperative; dressed in casual attire ,?hair pulled back with marginal hygiene; mood is described as depressed and anxious; she is tearful with downcast affect;? eye contact minimal, mostly looking downward; Speech is normal rate, but soft volume; psychomotor retardation?remains; thought process is organized, linear and goal directed; t hought content mostly on hopelessness of recovery, wishing she were ... as an option to end sadness; intermittently TC can get sidelined by chronic, relentless worries of various things, most prominently over medication regimen; otherwise it is pertinent to relevant topics and without any delusional content, paranoid ideations or grandiosity; SI; No HI; No AVH and no evidence of perceptual disturbance. ?Patients insight and judgment are impaired. Diagnostics Vital Signs (24Hr): Vital Signs - 24 hr 08/03/21 18:00 Temperature 97.7 F Pulse Rate 78 Blood Pressure 98/65 Pulse Oximetry 98 Body Mass Index 22.8 Labs Results: 07/18/21 19:58 07/18/21 19:58 Medications Medications Current Medications Acetaminophen (Acetaminophen 325 Mg Tablet) 650 mg PO Q6H PRN PRN Reason: Headache/Pain Mild Scale (1-3) Al Hydroxide/Mg Hydroxide (Magnesium Hydrox/Alum Hydrox 30 Ml Oral.Susp) 30 ml PO Q6H PRN PRN Reason: Heartburn/Nausea Clonazepam (Clonazepam 0.5 Mg Tablet) 0.5 mg PO BID@0830,1430 [facility] Last Admin: 08/04/21 08:59 Dose: Not Given Documented by: Clonazepam (Clonazepam 0.5 Mg Tablet) 0.25 mg PO QID PRN PRN Reason: mild-moderate anxiety Last Admin: 08/03/21 09:35 Dose: 0.25 mg Documented by: Dextroamphetamine Sulfate (Dextroamphetamine Sulfate 5 Mg Tablet) 7.5 mg PO DAILY [facility] Last Admin: 08/03/21 09:34 Dose: 7.5 mg Documented by: Docusate Sodium (Docusate Sodium 100 Mg Capsule) 100 mg PO DAILY PRN PRN Reason: constipation Escitalopram Oxalate (Escitalopram Oxalate 10 Mg Tablet) 30 mg PO DAILY [facility] Last Admin: 08/04/21 08:57 Dose: 30 mg Documented by: Hydroxyzine HCl (Hydroxyzine Hcl 25 Mg Tablet) 25 mg PO BEDTIME [facility] Last Admin: 08/03/21 20:01 Dose: 25 mg Documented by: Hydroxyzine HCl (Hydroxyzine Hcl 10 Mg Tablet) 10 mg PO TID PRN PRN Reason: mild anxiety Last Admin: 08/04/21 09:01 Dose: 10 mg Documented by: Lamotrigine (Lamotrigine 25 Mg Tablet) 25 mg PO DAILY [facility] Last Admin: 08/04/21 08:57 Dose: 25 mg Documented by: [place] Carbonate ([place] Carbonate Er 450 Mg Tablet.Er) 450 mg PO BEDTIME [facility] Last Admin: 08/03/21 20:02 Dose: 450 mg Documented by: Magnesium Hydroxide (Milk Of Magnesia 30 Ml Oral.Susp) 30 ml PO DAILY PRN PRN Reason: Constipation Patient Own Medication( L- Methlyfolate 10mg Cap) 1 each PO DAILY [facility] Last Admin: 08/04/21 09:02 Dose: 1 each Documented by: Propranolol HCl (Propranolol Hcl 10 Mg Tablet) 10 mg PO BID PRN; Protocol PRN Reason: Anxiety Trazodone HCl (Trazodone Hcl 100 Mg Tablet) 100 mg PO BEDTIME [facility] Last Admin: 08/03/21 20:01 Dose: 100 mg Documented by: Trazodone HCl (Trazodone Hcl 50 Mg Tablet) 50 mg PO BEDTIME PRN PRN Reason: insomnia Last Admin: 07/30/21 20:25 Dose: 50 mg Documented by: Allergies Allergies Allergy/AdvReac Type Severity Reaction Status Date / Time nortriptyline [NORTRIPTYLINE] Allergy Unknown RASH Verified 07/20/21 10:56 Assessment & Plan Assessment & Plan (1) ANANDA (generalized anxiety disorder): Status: Acute Code(s): F41.1 - Generalized anxiety disorder (2) OCD (obsessive compulsive disorder): Status: Acute Code(s): F42.9 - Obsessive-compulsive disorder, unspecified (3) MDD (major depressive disorder), recurrent episode, severe: Status: Acute Code(s): F33.2 - Major depressive disorder, recurrent severe without psychotic features Assessment and Plan: IMPRESSION: Patient is a bright, resilient 46-year-old female with history of ANANDA, OCD, depression intermittent SI who presents for worsening anxiety depression and SI. Patient is currently to tortured by endless worrying which causing her much anguish and difficulty when trying to make a decision. She first presented with depression and passive SI however expresses that she got closer to attempting suicide than ever before. Patient is open to medication management and also has insight to know that her OCD/anxiety interferes with her ability to make decisions and to tolerate medications long enough to get to a therapeutic dose and duration. However this insight is often dwarfed by her powerful anxious feelings, clearly evident in discussions. Hospital Course day to day/reasoning: -patient remains tormented by severe anxiety which has triggered depression and suicidality. Patient perseverates on how she cannot live this way and is struggling to Hope that should get better, sometimes wondering if suicide will be the only way out of this trap her anxiety places in; she does not want to kill herself but cannot envision living with this constant anxiety. That said she is willing to engage in both therapy and medication management strategy -Patient agrees to medication plan which is to get on Lexapro and see if she can tolerate a high dose to better address her OCD/ANANDA symptoms; will also titrate Lamictal since it helps with both depression and emotional lability. Will taper off Cymbalta and Trintellix; patient has traditionally had a hard time getting off Cymbalta so will taper it slowly while increasing Lexapro. Plan is to DC lithium -07/25 remains tormented by anxiety; feels suicidal as she gets little relief. Agrees to continue with medication plan of titrating Lexapro, discontinuing Trintellix, discontinuing lithium and tapering Cymbalta or discontinuing Cymbalta. 07/26 patient is increasingly depressed, evidenced by her seemingly lack of energy to maintain worry and relentless inquiry about medication regimen.? Patient talks less, affect is more down cast and she has minimal eye contact.? She expresses continued hopelessness and SI. Mostly isolating in her room.? It is unclear if this is due to taking away Trintellix and lowering Cymbalta dose or just part of patient's process.? Will continue with plan to titrate Lexapro as fast as patient can tolerate; discussed case with Dr. Post who agrees with leaving Cymbalta at 20 mg (since 10 mg doses do not exist) while simultaneously titrating Lexapro, an effort to avoid discontinuation syndrome which is not uncommon with Cymbalta.? Fruit Dumper continues to wonder about titrating patient on lithium just to see if it would help, especially so as a more severe depression has seemed to somewhat replace patient's intense OCD/ANANDA symptoms.? Also, through continued discussion of patient's history, there does seem to be a pattern of episodic depression and anxiety; patient has never had an overt man ic episode however the episodic nature of her symptoms remains a curiosity.? While Lamictal can also treat this, it takes at least a month to get to a minimal therapeutic dose. Will continue current regimen for now 07/28 patient feels a little better today and is not sure if it is the Lexapro or if it is just the day; she remains depressed and anxious but feels a little more hopeful that perhaps medication will eventually work.? She is considering lithium and wants to review risks/side effects further on her own 07/29 extremely depressed and anxious. Patient reports a tremor of her hands and feeling overall and seeing her body, a little like akathisia (she is already on propranolol and typically has a lower blood pressure); she is only on Cymbalta 20 and Lexapro 30 mg making it unlikely she has serotonin syndrome though it is possible she could have a touch of it (patient was on Cymbalta and Trintellix simultaneously and had mild tremor); it is unlikely that she is having discontinuation syndrome going down from only Cymbalta 30 mg to 20. Patient has a history of having psychosomatic responses to medication treatments. At this time tag writer will treat patient's symptoms with clonazepam and see if it resolves on its own. Otherwise may need to discontinue Cymbalta or go to Cymbalta 20 mg every other day. -patient says in hindsight maybe she was more stable on lithium and leans t owards going back on it however given her extreme anxiety with medications and tag writer's hesitation to further muddy her responses to current treatment, she agrees to hold off for now -tremor seemed to resolve when holding Cymbalta so will dc it -patient remains suicidal due to hopelessness and tormented by anxiety and depression 08/01 Patients best friend since childhood, Fang reports: -patient did better when discharged from the Hospital in 2019 and on [place] 300mg, prior to getting into a relationship -5 days prior to pt's last admission in 2019, she was very agitated, throwing stuff around the house, angry, yelling and having insomnia until she took Zyprexa which broke this agitated state. 08/02remains severely depressed and suicidal DX Considerations/summations -Bipolar dx? Pt does not present with text-book bipolar symptoms/hx. However, it's worth noting that patients bouts of depression/severe anxiety are episodic (regardless if also seemingly situational),, she reports hx of having improved mood on lithium and she has a hx of having almost a week of what could be described as a mixed manic episode. While this dx is inconclusive, [place] also is used to treat chronic suicidality and depression making this a reasonable choice. Pt will stay on lamictal titration while trying lithium; If patient significantly improves with lithium trial, will dc Lamictal. Pt more depressed overall; still very anxious and worried but depression seems more pronounced than on admission; no improvement at all dc'd cymbalta dc'd vortioxetine dc'd [place] 150mg started Lexapro started Lamictal started lithium PLAN: Patient on CV able to go back to Q 15 minutes checks for safety labs ordered for lithium... INCREASED To [place] ER 450mg qhs INCREASED lamictal to 50mg (following 2 weeks of 25mg). Scheduled clonazepam 0.5 mg b.i.d. scheduled for now Will leave clonazepam 0.25 mg q.i.d. p.r.n. continue LEXAPRO 30mg; titrate as clinically determined, keeping in mind doses needed to treat OCD DC'd Cymbalta for now; seems to have caused some tremor in combo with increased Lexapro; can restart if pt develops discontinuation syndrome. DC'd Trintellix initially dc'd lithium since only at 150mg I spent minutes with the patient and/or on the patient floor today, greater than?50% of which was spent counseling/coordinating care. Reason for contiued inpatient stay Substantial Risk for: harm to self
[2021-08-04] MEDS: Dextroamphetamine Sulfate 5 MG TABLET 7.5 MG PO (11:09)
[2021-08-04] MEDS: clonazePAM 0.5 MG TABLET 0.25 MG PO (11:09)
[2021-08-04 19:50] VITALS: BP 100/62; PULSE 68; RESP 16; TEMP 36.4; O2SAT 98
[2021-08-04] MEDS: hydrOXYzine HCL 25 MG TABLET PO (20:02)
[2021-08-04] MEDS: Lithium Carbonate ER 450 MG TABLET.ER PO (20:02)
[2021-08-04] MEDS: traZODone HCL 100 MG TABLET PO (20:02)
[2021-08-05] MEDS: Escitalopram Oxalate 10 MG TABLET 30 MG PO (09:38)
[2021-08-05] MEDS: lamoTRIgine 25 MG TABLET 50 MG PO (09:39)
[2021-08-05] MEDS: Dextroamphetamine Sulfate 5 MG TABLET 7.5 MG PO (09:39)
--- NOTE | 2021-08-05 10:22 | P.PNPSI_ITS ---
Subjective Subjective Date of Service: 08/05/21 Reason For Visit: depression, SI Interim History: Patient reports she is feeling a little less angry and negative today. She did not have thoughts of killing herself today. Patient actually smiled and chuckled today, a first since this admission. She had a moment of hope but she is cautious. She reports tremors are worse but agrees to continue with current regimen and see if this just clears up on its own. Agrees to continue with tx plan. Radio Time Sales Supervisor and patient discussed that if tomorrow she does not feel better this does not mean medications are not working, that it still all in its early stages and ups and Downs will continue to occur. Patient agreed and said she would not try to put too much weight on return of any depression tomorrow. Mental Status Exam Mental Status Exam Narrative: Pt is alert and oriented; behavior is cooperative; dressed in casual attire,?hair pulled back with marginal hygiene; mood is described as depressed and anxious; downcast affect but not tearful;? eye contact minimal, still mostly looking downward; Speech is normal rate; still soft volume; still psychomotor retardation?remains; thought process is organized, linear and goal directed; Thought content on glimmer of hope and said she did not think about killing herself today, however still struggling with hopelessness... as an option to end sadness; intermittently TC can get sidelined by chronic, relentless worries of various things, most prominently over medication regimen but a little less intense today; otherwise it is pertinent to relevant topics and without any delusional content, paranoid ideations or grandiosity; denies SI; No HI; No AVH and no evidence of perceptual disturbance. ?Patients insight and judgment are impaired. Diagnostics Vital Signs (24Hr): Vital Signs - 24 hr 08/04/21 19:50 Temperature 97.5 F Pulse Rate 68 Respiratory Rate 16 Blood Pressure 100/62 Pulse Oximetry 98 Body Mass Index 22.8 Labs Results: 07/18/21 19:58 07/18/21 19:58 Medications Medications Current Medications Acetaminophen (Acetaminophen 325 Mg Tablet) 650 mg PO Q6H PRN PRN Reason: Headache/Pain Mild Scale (1-3) Al Hydroxide/Mg Hydroxide (Magnesium Hydrox/Alum Hydrox 30 Ml Oral.Susp) 30 ml PO Q6H PRN PRN Reason: Heartburn/Nausea Clonazepam (Clonazepam 0.5 Mg Tablet) 0.5 mg PO BID@0830,1430 [facility] Last Admin: 08/05/21 09:41 Dose: Not Given Documented by: Clonazepam (Clonazepam 0.5 Mg Tablet) 0.25 mg PO QID PRN PRN Reason: mild-moderate anxiety Last Admin: 08/04/21 11:09 Dose: 0.25 mg Documented by: Dextroamphetamine Sulfate (Dextroamphetamine Sulfate 5 Mg Tablet) 7.5 mg PO DAILY [facility] Last Admin: 08/05/21 09:39 Dose: 7.5 mg Documented by: Docusate Sodium (Docusate Sodium 100 Mg Capsule) 100 mg PO DAILY PRN PRN Reason: constipation Escitalopram Oxalate (Escitalopram Oxalate 10 Mg Tablet) 30 mg PO DAILY [facility] Last Admin: 08/05/21 09:38 Dose: 30 mg Documented by: Hydroxyzine HCl (Hydroxyzine Hcl 25 Mg Tablet) 25 mg PO BEDTIME [facility] Last Admin: 08/04/21 20:02 Dose: 25 mg Documented by: Hydroxyzine HCl (Hydroxyzine Hcl 10 Mg Tablet) 10 mg PO TID PRN PRN Reason: mild anxiety Last Admin: 08/04/21 09:01 Dose: 10 mg Documented by: Lamotrigine (Lamotrigine 25 Mg Tablet) 50 mg PO DAILY [facility] Last Admin: 08/05/21 09:39 Dose: 50 mg Documented by: [place] Carbonate ([place] Carbonate Er 450 Mg Tablet.Er) 450 mg PO BEDTIME [facility] Last Admin: 08/04/21 20:02 Dose: 450 mg Documented by: Magnesium Hydroxide (Milk Of Magnesia 30 Ml Oral.Susp) 30 ml PO DAILY PRN PRN Reason: Constipation Patient Own Medication( L- Methlyfolate 10mg Cap) 1 each PO DAILY [facility] Last Admin: 08/05/21 09:38 Dose: 1 each Documented by: Propranolol HCl (Propranolol Hcl 10 Mg Tablet) 10 mg PO BID PRN; Protocol PRN Reason: Anxiety Trazodone HCl (Trazodone Hcl 100 Mg Tablet) 100 mg PO BEDTIME [facility] Last Admin: 08/04/21 20:02 Dose: 100 mg Documented by: Trazodone HCl (Trazodone Hcl 50 Mg Tablet) 50 mg PO BEDTIME PRN PRN Reason: insomnia Last Admin: 07/30/21 20:25 Dose: 50 mg Documented by: Allergies Allergies Allergy/AdvReac Type Severity Reaction Status Date / Time nortriptyline [NORTRIPTYLINE] Allergy Unknown RASH Verified 07/20/21 10:56 Assessment & Plan Assessment & Plan (1) ANANDA (generalized anxiety disorder): Status: Acute Code(s): F41.1 - Generalized anxiety disorder (2) OCD (obsessive compulsive disorder): Status: Acute Code(s): F42.9 - Obsessive-compulsive disorder, unspecified (3) MDD (major depressive disorder), recurrent episode, severe: Status: Acute Code(s): F33.2 - Major depressive disorder, recurrent severe without psychotic features Assessment and Plan: IMPRESSION: Patient is a bright, resilient 46-year-old female with history of ANANDA, OCD, depression intermittent SI who presents for worsening anxiety depression and SI. Patient is currently to tortured by endless worrying which causing her much anguish and difficulty when trying to make a decision. She first presented with depression and passive SI however expresses that she got closer to attempting suicide than ever before. Patient is open to medication management and also has insight to know that her OCD/anxiety interferes with her ability to make decisions and to tolerate medications long enough to get to a therapeutic dose and duration. However this insight is often dwarfed by her powerful anxious feelings, clearly evident in discussions. Hospital Course day to day/reasoning: -patient remains tormented by severe anxiety which has triggered depression and suicidality. Patient perseverates on how she cannot live this way and is struggling to Hope that should get better, sometimes wondering if suicide will be the only way out of this trap her anxiety places in; she does not want to kill herself but cannot envision living with this constant anxiety. That said she is willing to engage in both therapy and medication management strategy -Patient agrees to medication plan which is to get on Lexapro and see if she can tolerate a high dose to better address her OCD/ANANDA symptoms; will also titrate Lamictal since it helps with both depression and emotional lability. Will taper off Cymbalta and Trintellix; patient has traditionally had a hard time getting off Cymbalta so will taper it slowly while increasing Lexapro. Plan is to DC lithium -07/25 remains tormented by anxiety; feels suicidal as she gets little relief. Agrees to continue with medication plan of titrating Lexapro, discontinuing Trintellix, discontinuing lithium and tapering Cymbalta or discontinuing Cymbalta. 07/26 patient is increasingly depressed, evidenced by her seemingly lack of energy to maintain worry and relentless inquiry about medication regimen.? Patient talks less, affect is more down cast and she has minimal eye contact.? She expresses continued hopelessness and SI. Mostly isolating in her room.? It is unclear if this is due to taking away Trintellix and lowering Cymbalta dose or just part of patient's process.? Will continue with plan to titrate Lexapro as fast as patient can tolerate; discussed case with Dr. Post who agrees with leaving Cymbalta at 20 mg (since 10 mg doses do not exist) while simultaneously titrating Lexapro, an effort to avoid discontinuation syndrome which is not uncommon with Cymbalta.? Radio Time Sales Supervisor continues to wonder about titrating patient on lithium just to see if it would help, especially so as a more severe depression has seemed to somewhat replace patient's intense OCD/ANANDA symptoms.? Also, through continued discussion of patient's history, there does seem to be a pattern of episodic depression and anxiety; patient has never had an overt manic episode however the episodic nature of her symptoms remains a curiosity.? While Lamictal can also treat this, it takes at least a month to get to a minimal therapeutic dose. Will continue current regimen for now 07/28 patient feels a little better today and is not sure if it is the Lexapro or if it is just the day; she remains depressed and anxious but feels a little more hopeful that perhaps medication will eventually work.? She is considering lithium and wants to review risks/side effects further on her own 07/29 extremely depressed and anxious. Patient reports a tremor of her hands and feeling overall and seeing her body, a little like akathisia (she is already on propranolol and typically has a lower blood pressure); she is only on Cymbalta 20 and Lexapro 30 mg making it unlikely she has serotonin syndrome though it is possible she could have a touch of it (patient was on Cymbalta and Trintellix simultaneously and had mild tremor); it is unlikely that she is having discontinuation syndrome going down from only Cymbalta 30 mg to 20. Patient has a history of having psychosomatic responses to medication treatments. At this time keno writer/runner will treat patient's symptoms with clonazepam and see if it resolves on its own. Otherwise may need to discontinue Cymbalta or go to Cymbalta 20 mg every other day. -patient says in hindsight maybe she was more stable on lithium and leans towards going back on it however given her extreme anxiety with medications and keno writer/runner's hesitation to further muddy her responses to current treatment, she agrees to hold off for now -tremor seemed to resolve when holding Cymbalta so will dc it -patient remains suicidal due to hopelessness and tormented by anxiety and depression 08/01 Patients best friend since childhood, Fang reports: -patient did better when discharged from the Hospital in 2019 and on [place] 300mg, prior to getting into a relationship -5 days prior to pt's last admission in 2018, she was very agitated, throwing stuff around the house, angry, yelling and having insomnia until she took Zyprexa which broke this agitated state. 08/02remains severely depressed and suicidal DX Considerations/summations -Bipolar dx? Pt does not present with text-book bipolar symptoms/hx. However, it's worth noting that patients bouts of depression/severe anxiety are episodic (regardless if also seemingly situational),, she reports hx of having improved mood on lithium and she has a hx of having almost a week of what could be described as a mixed manic episode. While this dx is inconclusive, [place] also is used to treat chronic suicidality and depression making this a reasonable choice. Pt will stay on lamictal titration while trying lithium; If patient significantly improves with lithium trial, will dc Lamictal. dc'd cymbalta dc'd vortioxetine dc'd [place] 150mg AND.... started Lexapro started Lamictal started lithium PLAN: Patient on CV Q 15 minutes checks for safety medications: Lexapro and Lamictal; started [place] as trial while titrating others; if [place] proves effective, will DC Lamictal -Continue [place] ER 450mg qhs: lab pending -continue lamictal to 50mg (for 2 weeks). -continue LEXAPRO 30mg; LEAVE HERE FOR NOW; will continue to consider further titration next week -Scheduled clonazepam 0.5 mg b.i.d. scheduled for now -clonazepam 0.25 mg q.i.d. p.r.n. DC'd Cymbalta for now; seems to have caused some tremor in combo with increased Lexapro; can restart if pt develops discontinuation syndrome. DC'd Trintellix initially dc'd lithium since only at 150mg I spent minutes with the patient and/or on the patient floor today, greater than?50% of which was spent counseling/coordinating care. Reason for contiued inpatient stay Substantial Risk for: harm to self
[2021-08-05] MEDS: traZODone HCL 100 MG TABLET PO (20:17)
[2021-08-05] MEDS: hydrOXYzine HCL 25 MG TABLET PO (20:17)
[2021-08-05] MEDS: Lithium Carbonate ER 450 MG TABLET.ER PO (20:17)
[2021-08-05] MEDS: traZODone HCL 50 MG TABLET PO (23:49)
[2021-08-06] MEDS: clonazePAM 0.5 MG TABLET 0.25 MG PO ×2 (04:48→05:25)
[2021-08-06 06:00] VITALS: BP 135/78; PULSE 78; RESP 18; TEMP 36.3; O2SAT 100
[2021-08-06] MEDS: clonazePAM 0.5 MG TABLET PO (08:28)
--- NOTE | 2021-08-06 09:23 | HO.PSYCHPN ---
Subjective Subjective Date of Service: 08/06/21 Reason For Visit: depression, SI Subjective Notes: Conditional Voluntary Interim History: Patient was seen and discussed on rounds today. Current records and treatment plan reviewed. Labs were reviewed She is known to me from before. She continues to have a lot of complaints about depression, anxiety. Continues to be somewhat isolative and not very social. Very little tendency in groups. She states that it has since the lithium she has been having some dizziness. A lithium level has been ordered for 08/08 which I changed to 08/07. Eating and sleeping adequately. No SI. No changes were made today Medication Compliance: Yes Side effects from medications: No Attending Groups: No Review of Systems Review of Systems Review of systems are reviewed and are negative except for dizziness and some tremulousness which may be related to lithium which is being checked Mental Status Exam Mental Status Exam Narrative: Patient was seen on rounds today. She is alert, oriented and pleasant. She did also remember me. Speech is normal. Moderate eye contact. Affect is appropriate and constricted. Moderate anxiety present. Preoccupied with symptoms and possible side effects. Moderate depression present. No signs of psychosis. No active SI. Cognitively intact. Judgment is intact Diagnostics Vital Signs (24Hr): Vital Signs - 24 hr 08/06/21 06:00 Temperature 97.4 F Pulse Rate 78 Respiratory Rate 18 Blood Pressure 135/78 Pulse Oximetry 100 Body Mass Index 22.8 Labs Results: 07/18/21 19:58 07/18/21 19:58 Medications Medications Current Medications Acetaminophen (Acetaminophen 325 Mg Tablet) 650 mg PO Q6H PRN PRN Reason: Headache/Pain Mild Scale (1-3) Al Hydroxide/Mg Hydroxide (Magnesium Hydrox/Alum Hydrox 30 Ml Oral.Susp) 30 ml PO Q6H PRN PRN Reason: Heartburn/Nausea Clonazepam (Clonazepam 0.5 Mg Tablet) 0.5 mg PO BID@0830,1430 [facility] Last Admin: 08/06/21 08:28 Dose: 0.5 mg Documented by: Clonazepam (Clonazepam 0.5 Mg Tablet) 0.25 mg PO QID PRN PRN Reason: mild-moderate anxiety Last Admin: 08/06/21 05:25 Dose: 0.25 mg Documented by: Dextroamphetamine Sulfate (Dextroamphetamine Sulfate 5 Mg Tablet) 7.5 mg PO DAILY [facility] Last Admin: 08/05/21 09:39 Dose: 7.5 mg Documented by: Docusate Sodium (Docusate Sodium 100 Mg Capsule) 100 mg PO DAILY PRN PRN Reason: constipation Escitalopram Oxalate (Escitalopram Oxalate 10 Mg Tablet) 30 mg PO DAILY [facility] Last Admin: 08/05/21 09:38 Dose: 30 mg Documented by: Hydroxyzine HCl (Hydroxyzine Hcl 25 Mg Tablet) 25 mg PO BEDTIME [facility] Last Admin: 08/05/21 20:17 Dose: 25 mg Documented by: Hydroxyzine HCl (Hydroxyzine Hcl 10 Mg Tablet) 10 mg PO TID PRN PRN Reason: mild anxiety Last Admin: 08/04/21 09:01 Dose: 10 mg Documented by: Lamotrigine (Lamotrigine 25 Mg Tablet) 50 mg PO DAILY [facility] Last Admin: 08/05/21 09:39 Dose: 50 mg Documented by: Chatfield Carbonate (Chatfield Carbonate Er 450 Mg Tablet.Er) 450 mg PO BEDTIME [facility] Last Admin: 08/05/21 20:17 Dose: 450 mg Documented by: Magnesium Hydroxide (Milk Of Magnesia 30 Ml Oral.Susp) 30 ml PO DAILY PRN PRN Reason: Constipation Patient Own Medication( L- Methlyfolate 10mg Cap) 1 each PO DAILY [facility] Last Admin: 08/05/21 09:38 Dose: 1 each Documented by: Propranolol HCl (Propranolol Hcl 10 Mg Tablet) 10 mg PO BID PRN; Protocol PRN Reason: Anxiety Trazodone HCl (Trazodone Hcl 100 Mg Tablet) 100 mg PO BEDTIME [facility] Last Admin: 08/05/21 20:17 Dose: 100 mg Documented by: Trazodone HCl (Trazodone Hcl 50 Mg Tablet) 50 mg PO BEDTIME PRN PRN Reason: insomnia Last Admin: 08/05/21 23:49 Dose: 50 mg Documented by: Allergies Allergies Allergy/AdvReac Type Severity Reaction Status Date / Time nortriptyline [NORTRIPTYLINE] Allergy Unknown RASH Verified 07/20/21 10:56 Assessment & Plan Assessment & Plan (1) ANANDA (generalized anxiety disorder): Status: Acute Code(s): F41.1 - Generalized anxiety disorder (2) OCD (obsessive compulsive disorder): Status: Acute Code(s): F42.9 - Obsessive-compulsive disorder, unspecified (3) MDD (major depressive disorder), recurrent episode, severe: Status: Acute Code(s): F33.2 - Major depressive disorder, recurrent severe without psychotic features Assessment and Plan: . DX Considerations/summations -Bipolar dx? PLAN: Patient on CV Q 15 minutes checks for safety medications: Lexapro and Lamictal; started Chat[place] as trial while titrating others; if Chatfield proves effective, will DC Lamictal -Continue Chatfield ER 450mg qhs: lab pending -continue lamictal to 50mg (for 2 weeks). -continue LEXAPRO 30mg; LEAVE HERE FOR NOW; will continue to consider further titration next week -Scheduled clonazepam 0.5 mg b.i.d. scheduled for now -clonazepam 0.25 mg q.i.d. p.r.n. DC'd Cymbalta for now; seems to have caused some tremor in combo with increased Lexapro; can restart if pt develops discontinuation syndrome. DC'd Trintellix initially dc'd lithium since only at 150mg I spent minutes with the patient and/or on the patient floor today, greater than?50% of which was spent counseling/coordinating care. Reason for contiued inpatient stay Substantial Risk for: other
[2021-08-06 10:35] LABS: Lithium 0.34 mmol/L (0.60-1.20)
[2021-08-06] MEDS: Escitalopram Oxalate 10 MG TABLET 30 MG PO (10:35)
[2021-08-06] MEDS: Dextroamphetamine Sulfate 5 MG TABLET 7.5 MG PO (10:36)
[2021-08-06] MEDS: lamoTRIgine 25 MG TABLET 50 MG PO (10:36)
[2021-08-06 19:50] VITALS: BP 99/66; PULSE 67; RESP 16; TEMP 36.5; O2SAT 96
[2021-08-06] MEDS: Lithium Carbonate ER 450 MG TABLET.ER PO (20:03)
[2021-08-06] MEDS: hydrOXYzine HCL 25 MG TABLET PO (20:03)
[2021-08-06] MEDS: Melatonin 3 MG TABLET PO (20:03)
[2021-08-06] MEDS: traZODone HCL 100 MG TABLET PO (20:03)
[2021-08-07] MEDS: Escitalopram Oxalate 10 MG TABLET 30 MG PO (09:29)
[2021-08-07] MEDS: Dextroamphetamine Sulfate 5 MG TABLET 7.5 MG PO (09:30)
[2021-08-07] MEDS: lamoTRIgine 25 MG TABLET 50 MG PO (09:30)
--- NOTE | 2021-08-07 09:33 | P.PNPSI_ITS ---
Subjective Subjective Date of Service: 08/07/21 Reason For Visit: depression, SI Subjective Notes: Conditional Voluntary Medical Problems Affecting Mental Status: No Interim History: Patient was seen in rounds today. She continues to be extr nabeel fearful on preoccupied with the new medications specially lithium and is afraid of long-term side effects specially affecting her kidneys. We had a very long discussion about risks benefits and my thoughts and suggestions. I was hoping that I would have some affect since she has known me for many years. I strongly recommended her staying on the current regimen and increasing the lithium to get to a more therapeutic level and offer to do that today but she does not want to do that. She is also a regretful that she did not try only 1 new medication verses the 3. No current major pertinent complaints. Eating and sleeping adequately. No changes were made today. Her lithium level yesterday was 0.36 Review of Systems Review of Systems Yes all other systems are reviewed and are negative Diagnostics Vital Signs (24Hr): Vital Signs - 24 hr 08/06/21 19:50 Temperature 97.7 F Pulse Rate 67 Respiratory Rate 16 Blood Pressure 99/66 Pulse Oximetry 96 Body Mass Index 22.8 Labs Results: 07/18/21 19:58 07/18/21 19:58 Labs: Laboratory Results - last 48 hr 08/06/21 10:20 Cascades 0.34 L Medications Medications Current Medications Acetaminophen (Acetaminophen 325 Mg Tablet) 650 mg PO Q6H PRN PRN Reason: Headache/Pain Mild Scale (1-3) Al Hydroxide/Mg Hydroxide (Magnesium Hydrox/Alum Hydrox 30 Ml Oral.Susp) 30 ml PO Q6H PRN PRN Reason: Heartburn/Nausea Dextroamphetamine Sulfate (Dextroamphetamine Sulfate 5 Mg Tablet) 7.5 mg PO DAILY [facility] Last Admin: 08/07/21 09:30 Dose: 7.5 mg Documented by: Docusate Sodium (Docusate Sodium 100 Mg Capsule) 100 mg PO DAILY PRN PRN Reason: constipation Escitalopram Oxalate (Escitalopram Oxalate 10 Mg Tablet) 30 mg PO DAILY [facility] Last Admin: 08/07/21 09:29 Dose: 30 mg Documented by: Hydroxyzine HCl (Hydroxyzine Hcl 25 Mg Tablet) 25 mg PO BEDTIME [facility] Last Admin: 08/06/21 20:03 Dose: 25 mg Documented by: Hydroxyzine HCl (Hydroxyzine Hcl 10 Mg Tablet) 10 mg PO TID PRN PRN Reason: mild anxiety Last Admin: 08/04/21 09:01 Dose: 10 mg Documented by: Lamotrigine (Lamotrigine 25 Mg Tablet) 50 mg PO DAILY [facility] Last Admin: 08/07/21 09:30 Dose: 50 mg Documented by: Cascades Carbonate (Cascades Carbonate Er 450 Mg Tablet.Er) 450 mg PO BEDTIME [facility] Last Admin: 08/06/21 20:03 Dose: 450 mg Documented by: Magnesium Hydroxide (Milk Of Magnesia 30 Ml Oral.Susp) 30 ml PO DAILY PRN PRN Reason: Constipation Melatonin (Melatonin 3 Mg Tablet) 3 mg PO BEDTIME PRN PRN Reason: Sleep Last Admin: 08/06/21 20:03 Dose: 3 mg Documented by: Patient Own Medication( L- Methlyfolate 10mg Cap) 1 each PO DAILY [facility] Last Admin: 08/06/21 10:35 Dose: 1 each Documented by: Propranolol HCl (Propranolol Hcl 10 Mg Tablet) 10 mg PO BID PRN; Protocol PRN Reason: Anxiety Trazodone HCl (Trazodone Hcl 100 Mg Tablet) 100 mg PO BEDTIME [facility] Last Admin: 08/06/21 20:03 Dose: 100 mg Documented by: Trazodone HCl (Trazodone Hcl 50 Mg Tablet) 50 mg PO BEDTIME PRN PRN Reason: insomnia Last Admin: 08/05/21 23:49 Dose: 50 mg Documented by: Allergies Allergies Allergy/AdvReac Type Severity Reaction Status Date / Time nortriptyline [NORTRIPTYLINE] Allergy Unknown RASH Verified 07/20/21 10:56 Assessment & Plan Assessment & Plan (1) ANANDA (generalized anxiety disorder): Status: Acute Code(s): F41.1 - Generalized anxiety disorder (2) OCD (obsessive compulsive disorder): Status: Acute Code(s): F42.9 - Obsessive-compulsive disorder, unspecified (3) MDD (major depressive disorder), recurrent episode, severe: Status: Acute Code(s): F33.2 - Major depressive disorder, recurrent severe without psychotic features Assessment and Plan: . DX Considerations/summations -Bipolar dx? PLAN: Patient on CV Q 15 minutes checks for safety medications: Lexapro and Lamictal; started Cascades as trial while titrating others; if Cascades proves effective, will DC Lamictal -Continue Cascades ER 450mg qhs: lab pending -continue lamictal to 50mg (for 2 weeks). -continue LEXAPRO 30mg; LEAVE HERE FOR NOW; will continue to consider further titration next week -Scheduled clonazepam 0.5 mg b.i.d. scheduled for now -clonazepam 0.25 mg q.i.d. p.r.n. DC'd Cymbalta for now; seems to have caused some tremor in combo with increased Lexapro; can restart if pt develops discontinuation syndrome. DC'd Trintellix initially dc'd lithium since only at 150mg 08/07/2021 continue current regimen and plans and strongly urged her to think about increasing the lithium I spent minutes with the patient and/or on the patient floor today, greater than?50% of which was spent counseling/coordinating care. Reason for contiued inpatient stay Substantial Risk for: other
[2021-08-07] MEDS: clonazePAM 0.5 MG TABLET 0.25 MG PO (10:50)
[2021-08-07] MEDS: Lithium Carbonate ER 450 MG TABLET.ER PO (19:46)
[2021-08-07] MEDS: traZODone HCL 100 MG TABLET PO (19:46)
[2021-08-07] MEDS: hydrOXYzine HCL 25 MG TABLET PO (19:46)
[2021-08-07] MEDS: Melatonin 3 MG TABLET PO (19:48)
[2021-08-08] MEDS: lamoTRIgine 25 MG TABLET 50 MG PO (09:28)
[2021-08-08] MEDS: Escitalopram Oxalate 10 MG TABLET 30 MG PO (09:28)
[2021-08-08] MEDS: Dextroamphetamine Sulfate 5 MG TABLET 7.5 MG PO (09:28)
[2021-08-08 09:34] LABS: Blood Urea Nitrogen 13 mg/dL (9-16); Creatinine Clr Calc Pharmacy 64.7; Estimated Glomerular Filt Rate > 60
--- NOTE | 2021-08-08 09:56 | HO.PSYCHPN ---
Subjective Subjective Date of Service: 08/08/21 Reason For Visit: depression, SI Interim History: On Sunday patient became extremely agitated, screaming and throwing item(s) for about 20 minutes unable to calm down until exhausted. To day she Remains deeply depressed and suicidal. Today patient shared that she is lying in bed trying to figure out how she will kill herself upon discharge. She is trying to come up with a no failed plan meaning 1 that will be successful. Patient and financial underwriter had a good discussion about her history and it is revealed that since she was a young girl it was safer to to remain hopeless about getting better. Patient shared that the fear that lithium might actually work but only for short time is terrifying to her; she thinks that if it were to temporarily work and she were to experience hope, but only to have it ultimately prove prove ineffective, the resulting despair s would be so overwhelming she would kill herself. Patient breaks down into sobs expressing that she understands the Irony but cannot seem to shut her mind off and that the worries and anxiety are tremendous. pt remains with hand tremor; she's not sure if it's due to anxiety or med side-effect Mental Status Exam Mental Status Exam Narrative: Pt is alert and oriented; behavior is cooperative; dressed in casual attire,?hair pulled back with marginal hygiene; mood is described as depressed and anxious; she is tearful with downcast affect;? eye contact minimal, mostly looking downward; Speech is normal rate, but soft volume; psychomotor retardation?remains; thought process is organized, linear and goal directed; thought content mostly on hopelessness of recovery, wishing she were ... as an option to end sadness; frequently TC gets sidelined by chronic, relentless worries of various things, most prominently over medication regimen; otherwise it is pertinent to relevant topics and without any delusional content, paranoid ideations or grandiosity; SI; No HI; No AVH and no evidence of perceptual disturbance. ?Patients insight and judgment are impaired. Diagnostics Vital Signs (24Hr): Body Mass Index 22.8 Labs Results: 07/18/21 19:58 08/08/21 08:24 Labs: Laboratory Results - last 48 hr 08/06/21 08/08/21 10:20 08:24 BUN 13 Creatinine 0.82 Estim Creat Clear Calc 64.7 Estimated GFR > 60 [place] 0.34 L Medications Medications Current Medications Acetaminophen (Acetaminophen 325 Mg Tablet) 650 mg PO Q6H PRN PRN Reason: Headache/Pain Mild Scale (1-3) Al Hydroxide/Mg Hydroxide (Magnesium Hydrox/Alum Hydrox 30 Ml Oral.Susp) 30 ml PO Q6H PRN PRN Reason: Heartburn/Nausea Clonazepam (Clonazepam 0.5 Mg Tablet) 0.25 mg PO QID PRN PRN Reason: Anxiety Last Admin: 08/07/21 10:50 Dose: 0.25 mg Documented by: Dextroamphetamine Sulfate (Dextroamphetamine Sulfate 5 Mg Tablet) 7.5 mg PO DAILY [facility] Last Admin: 08/08/21 09:28 Dose: 7.5 mg Documented by: Docusate Sodium (Docusate Sodium 100 Mg Capsule) 100 mg PO DAILY PRN PRN Reason: constipation Escitalopram Oxalate (Escitalopram Oxalate 10 Mg Tablet) 30 mg PO DAILY [facility] Last Admin: 08/08/21 09:28 Dose: 30 mg Documented by: Hydroxyzine HCl (Hydroxyzine Hcl 25 Mg Tablet) 25 mg PO BEDTIME [facility] Last Admin: 08/07/21 19:46 Dose: 25 mg Documented by: Hydroxyzine HCl (Hydroxyzine Hcl 10 Mg Tablet) 10 mg PO TID PRN PRN Reason: mild anxiety Last Admin: 08/04/21 09:01 Dose: 10 mg Documented by: Lamotrigine (Lamotrigine 25 Mg Tablet) 50 mg PO DAILY [facility] Last Admin: 08/08/21 09:28 Dose: 50 mg Documented by: Kinderhook Carbonate (K[place] Carbonate Er 450 Mg Tablet.Er) 450 mg PO BEDTIME [facility] Last Admin: 08/07/21 19:46 Dose: 450 mg Documented by: Magnesium Hydroxide (Milk Of Magnesia 30 Ml Oral.Susp) 30 ml PO DAILY PRN PRN Reason: Constipation Melatonin (Melatonin 3 Mg Tablet) 3 mg PO BEDTIME PRN PRN Reason: Sleep Last Admin: 08/07/21 19:48 Dose: 3 mg Documented by: Patient Own Medication( L- Methlyfolate 10mg Cap) 1 each PO DAILY [facility] Last Admin: 08/08/21 09:28 Dose: 1 each Documented by: Propranolol HCl (Propranolol Hcl 10 Mg Tablet) 10 mg PO BID PRN; Protocol PRN Reason: Anxiety Trazodone HCl (Trazodone Hcl 100 Mg Tablet) 100 mg PO BEDTIME [facility] Last Admin: 08/07/21 19:46 Dose: 100 mg Documented by: Trazodone HCl (Trazodone Hcl 50 Mg Tablet) 50 mg PO BEDTIME PRN PRN Reason: insomnia Last Admin: 08/05/21 23:49 Dose: 50 mg Documented by: Allergies Allergies Allergy/AdvReac Type Severity Reaction Status Date / Time nortriptyline [NORTRIPTYLINE] Allergy Unknown RASH Verified 07/20/21 10:56 Assessment & Plan Assessment & Plan (1) ANANDA (generalized anxiety disorder): Status: Acute Code(s): F41.1 - Generalized anxiety disorder (2) OCD (obsessive compulsive disorder): Status: Acute Code(s): F42.9 - Obsessive-compulsive disorder, unspecified (3) MDD (major depressive disorder), recurrent episode, severe: Status: Acute Code(s): F33.2 - Major depressive disorder, recurrent severe without psychotic features Assessment and Plan: IMPRESSION: Patient is a bright, resilient 46-year-old female with history of ANANDA, OCD, depression intermittent SI who presents for worsening anxiety depression and SI. Patient is currently to tortured by endless worrying which causing her much anguish and difficulty when trying to make a decision.? She first presented with depression and passive SI however expresses that she got closer to attempting suicide than ever before.? Patient is open to medication management and also has insight to know that her OCD/anxiety interferes with her ability to make decisions and to tolerate medications long enough to get to a therapeutic dose and duration.? However this insight is often dwarfed by her powerful anxious feelings, clearly evident in discussions. Hospital Course day to day/reasoning: -patient remains tormented by severe anxiety which has triggered depression and suicidality.? Patient perseverates on how she cannot live this way and is struggling to Hope that should get better, sometimes wondering if suicide will be the only way out of this trap her anxiety places in; she does not want to kill herself but cannot envision living with this constant anxiety.? That said she is willing to engage in both therapy and medication management strategy -Patient agrees to medication plan which is to get on Lexapro and see if she can tolerate a high dose to better address her OCD/ANANDA symptoms; will also titrate Lamictal since it helps with both depression and emotional lability. Will taper off Cymbalta and Trintellix; patient has traditionally had a hard time getting off Cymbalta so will taper it slowly while increasing Lexapro.? Plan is to DC lithium -07/25 remains tormented by anxiety; feels suicidal as she gets little relief.? Agrees to continue with medication plan of titrating Lexapro, discontinuing Trintellix, discontinuing lithium and tapering Cymbalta or discontinuing Cymbalta. 07/26 patient is increasingly depressed, evidenced by her seemingly lack of energy to maintain worry and relentless inquiry about medication regimen.? Patient talks less, affect is more down cast and she has minimal eye contact.? She expresses continued hopelessness and SI. Mostly isolating in her room.? It is unclear if this is due to taking away Trintellix and lowering Cymbalta dose or just part of patient's process.? Will continue with plan to titrate Lexapro as fast as patient can tolerate; discussed case with Dr. Post who agrees with leaving Cymbalta at 20 mg (since 10 mg doses do not exist) while simultaneously titrating Lexapro, an effort to avoid discontinuation syndrome which is not uncommon with Cymbalta.? Monorail Operator continues to wonder about titrating patient on lithium just to see if it would help, especially so as a more severe depression has seemed to somewhat replace patient's intense OCD/ANANDA symptoms.? Also, through continued discussion of patient's history, there does seem to be a pattern of episodic depression and anxiety; patient has never had an overt manic episode however the episodic nature of her symptoms remains a curiosity.? While Lamictal can also treat this, it takes at least a month to get to a minimal therapeutic dose. Will continue current regimen for now 07/28 patient feels a little better today and is not sure if it is the Lexapro or if it is just the day; she remains depressed and anxious but feels a little more hopeful that perhaps medication will eventually work.? She is considering lithium and wants to review risks/side effects further on her own 07/29 extremely depressed and anxious.? Patient reports a tremor of her hands and feeling overall and seeing her body, a little like akathisia (she is already on propranolol and typically has a lower blood pressure); she is only on Cymbalta 20 and Lexapro 30 mg making it unlikely she has serotonin syndrome though it is possible she could have a touch of it (patient was on Cymbalta and Trintellix simultaneously and had mild tremor);? it is unlikely that she is having discontinuation syndrome going down from only Cymbalta 30 mg to 20. Patient has a history of having psychosomatic responses to medication treatments.? At? this time financial underwriter will treat patient's symptoms with clonazepam and see if it resolves on its own.? Otherwise may need to discontinue Cymbalta or go to Cymbalta 20 mg every other day. -patient says in hindsight maybe she was more stable on lithium and leans towards going back on it however given her extreme anxiety with medications and financial underwriter's hesitation to further muddy her responses to current treatment, she agrees to hold off for now -tremor seemed to resolve when holding Cymbalta so will dc it -patient remains suicidal due to hopelessness and tormented by anxiety and depression 08/01 Patients best friend since childhood, Fang reports: -patient did better when discharged from the Hospital in 2019 and on [place] 300mg, prior to getting into a relationship -5 days prior to pt's last admission in 2019, she was very agitated, throwing stuff around the house, angry, yelling and having insomnia until she took Zyprexa which broke this agitated state. 08/02 -remains severely depressed and suicidal -tremor; anxiety? possibly but less likely med side-effect DX Considerations/summations -Bipolar dx? Pt does not present with text-book bipolar symptoms/hx. However, it's worth noting that patients bouts of depression/severe anxiety are episodic (regardless if also seemingly situational),, she reports hx of having improved mood on lithium and she has a hx of having almost a week of what could be described as a mixed manic episode. While this dx is inconclusive, Kinderhook also is used to treat chronic suicidality and depression making this a reasonable choice. Pt will stay on lamictal titration while trying lithium; If patient significantly improves with lithium trial, will dc Lamictal. dc'd cymbalta dc'd vortioxetine dc'd? Kinderhook 150mg ?? ? AND.... started Lexapro started Lamictal re-started lithium PLAN: Patient on CV Q 15 minutes checks for safety medications: Lexapro and Lamictal; started K[place] as trial while titrating others; if Kinderhook proves effective, will DC Lamictal -Continue Kinder[place] ER 450mg qhs: subthereputic lithium level; other labs wnl -continue lamictal to 50mg (for 2 weeks). -continue LEXAPRO 30mg; LEAVE HERE FOR NOW; will continue to consider further titration next week -Scheduled clonazepam 0.5 mg b.i.d. scheduled for now -clonazepam 0.25 mg q.i.d. p.r.n. DC'd Cymbalta for now; seems to have caused some tremor in combo with increased Lexapro; can restart if pt develops discontinuation syndrome. DC'd Trintellix initially dc'd lithium since only at 150mg I spent minutes with the patient and/or on the patient floor today, greater than?50% of which was spent counseling/coordinating care. Reason for contiued inpatient stay Substantial Risk for: harm to self
[2021-08-08 09:58] LABS: TSH reflex Free T4 2.07 uIU/mL (0.32-4.0)
[2021-08-08 12:16] LABS: Lithium 0.45 mmol/L (0.60-1.20)
[2021-08-08] MEDS: clonazePAM 0.5 MG TABLET PO ×2 (15:02→19:16)
[2021-08-08] MEDS: hydrOXYzine HCL 25 MG TABLET PO (20:02)
[2021-08-08] MEDS: traZODone HCL 100 MG TABLET PO (20:02)
[2021-08-08] MEDS: clonazePAM 1 MG TABLET PO (20:04)
[2021-08-08] MEDS: Lithium Carbonate ER 300 MG TABLET.ER 600 MG PO (20:05)
[2021-08-08] MEDS: Melatonin 3 MG TABLET PO (20:11)
[2021-08-09] MEDS: clonazePAM 0.5 MG TABLET PO ×2 (07:47→14:47)
[2021-08-09] MEDS: Dextroamphetamine Sulfate 5 MG TABLET 7.5 MG PO (09:13)
[2021-08-09] MEDS: lamoTRIgine 25 MG TABLET 50 MG PO (09:14)
[2021-08-09] MEDS: Escitalopram Oxalate 10 MG TABLET 30 MG PO (09:15)
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
[2021-08-09 17:14] VITALS: BP 95/65; PULSE 72; RESP 16; TEMP 37.3; O2SAT 100
[2021-08-09] MEDS: traZODone HCL 100 MG TABLET PO (20:25)
[2021-08-09] MEDS: Melatonin 3 MG TABLET PO (20:25)
[2021-08-09] MEDS: hydrOXYzine HCL 25 MG TABLET PO (20:25)
[2021-08-09] MEDS: Lithium Carbonate ER 300 MG TABLET.ER 600 MG PO (20:25)
[2021-08-10] MEDS: clonazePAM 0.5 MG TABLET PO (08:29)
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
[2021-08-10] MEDS: lamoTRIgine 25 MG TABLET 50 MG PO (10:37)
[2021-08-10] MEDS: Dextroamphetamine Sulfate 5 MG TABLET 7.5 MG PO (10:37)
[2021-08-10] MEDS: Escitalopram Oxalate 10 MG TABLET 30 MG PO (10:38)
[2021-08-10 10:44] VITALS: BP 85/60; PULSE 94; RESP 14
[2021-08-10 20:30] VITALS: BP 100/70; PULSE 65; TEMP 36.6
[2021-08-10] MEDS: Lithium Carbonate ER 300 MG TABLET.ER 600 MG PO (20:32)
[2021-08-10] MEDS: traZODone HCL 100 MG TABLET PO (20:32)
[2021-08-10] MEDS: hydrOXYzine HCL 25 MG TABLET PO (20:32)
[2021-08-10] MEDS: Melatonin 3 MG TABLET PO (20:33)
[2021-08-11 06:00] VITALS: BP 88/59; PULSE 60; RESP 18; TEMP 36.1; O2SAT 100
[2021-08-11] MEDS: Dextroamphetamine Sulfate 5 MG TABLET 7.5 MG PO (09:12)
[2021-08-11] MEDS: lamoTRIgine 25 MG TABLET 50 MG PO (09:12)
[2021-08-11] MEDS: Escitalopram Oxalate 10 MG TABLET 30 MG PO (09:12)
[2021-08-11] MEDS: clonazePAM 0.5 MG TABLET 0.25 MG PO ×2 (09:17→16:44)
[2021-08-11 14:45] LABS: Appearance Urine CLEAR; Color Urine STRAW; Glucose Urine UA NEG (NEG); Leukocyte Esterase Urine NEG (NEG); Nitrite Urine NEG (NEG); PH 6.5 (5.0-8.0); Specific Gravity - Urine <= 1.005 (1.005-1.025); UACC Culture Trigger NO; Urine Blood 2+ (NEG); Urine Ketones NEG (NEG); Urine Protein NEG (NEG-TRACE)
[2021-08-11 14:52] LABS: WBC Urine 0 /HPF (0-4)
[2021-08-11 14:53] LABS: Squamous Epithelial Cell Urine 1+ /LPF
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
[2021-08-11 18:43] VITALS: BP 100/65; PULSE 83; RESP 18; TEMP 35.9; O2SAT 96
[2021-08-11] MEDS: traZODone HCL 100 MG TABLET PO (20:08)
[2021-08-11] MEDS: Lithium Carbonate ER 300 MG TABLET.ER 600 MG PO (20:08)
[2021-08-11] MEDS: Melatonin 3 MG TABLET PO (20:08)
[2021-08-11] MEDS: hydrOXYzine HCL 25 MG TABLET PO (20:08)
[2021-08-12] MEDS: Dextroamphetamine Sulfate 5 MG TABLET 7.5 MG PO (09:16)
[2021-08-12] MEDS: lamoTRIgine 25 MG TABLET 50 MG PO (09:17)
[2021-08-12] MEDS: Escitalopram Oxalate 10 MG TABLET 30 MG PO (09:17)
[2021-08-12] MEDS: clonazePAM 0.5 MG TABLET 0.25 MG PO ×2 (09:19→09:58)
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
[2021-08-12] MEDS: clonazePAM 0.5 MG TABLET PO (15:20)
[2021-08-12 18:42] VITALS: BP 115/61; PULSE 85; RESP 18; TEMP 36.1; O2SAT 100
[2021-08-12] MEDS: traZODone HCL 100 MG TABLET PO (20:04)
[2021-08-12] MEDS: Melatonin 3 MG TABLET PO (20:04)
[2021-08-12] MEDS: hydrOXYzine HCL 25 MG TABLET PO (20:04)
[2021-08-12] MEDS: Lithium Carbonate ER 300 MG TABLET.ER 600 MG PO (20:04)
[2021-08-12] MEDS: Lidocaine 4 % Patch ADH..PATCH 1 PATCH TRANSDERMA (20:27)
[2021-08-13 06:44] VITALS: BP 90/55; PULSE 60; RESP 17; TEMP 36.6; O2SAT 96
[2021-08-13 08:48] LABS: Lithium 0.41 mmol/L (0.60-1.20)
[2021-08-13 08:54] LABS: Blood Urea Nitrogen 14 mg/dL (9-16); Creatinine Clr Calc Pharmacy 67.1; Estimated Glomerular Filt Rate > 60
[2021-08-13 09:16] LABS: TSH reflex Free T4 2.35 uIU/mL (0.32-4.0)
[2021-08-13] MEDS: Escitalopram Oxalate 10 MG TABLET 30 MG PO (09:36)
[2021-08-13] MEDS: lamoTRIgine 25 MG TABLET 50 MG PO (09:36)
[2021-08-13] MEDS: Dextroamphetamine Sulfate 5 MG TABLET 10 MG PO (09:37)
[2021-08-13] MEDS: clonazePAM 0.5 MG TABLET PO ×2 (09:37→20:04)
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
[2021-08-13 18:00] VITALS: BP 121/71; PULSE 76; TEMP 36.2; O2SAT 96
[2021-08-13] MEDS: Melatonin 3 MG TABLET PO (20:02)
[2021-08-13] MEDS: Lithium Carbonate ER 450 MG TABLET.ER 900 MG PO (20:02)
[2021-08-13] MEDS: hydrOXYzine HCL 25 MG TABLET PO (20:02)
[2021-08-13] MEDS: traZODone HCL 100 MG TABLET PO (20:02)
--- NOTE | 2021-08-14 | ECG_ITS ---
Test Reason : chest pain Blood Pressure : / mmHG Vent. Rate : 067 BPM Atrial Rate : 067 BPM P-R Int : 124 ms QRS Dur : 094 ms QT Int : 424 ms P-R-T Axes : 034 065 054 degrees QTc Int : 448 ms Normal sinus rhythm Nonspecific ST abnormality Inferior leads Abnormal ECG ST more elevated in Inferior leads Referred By: James Bansal Electronically Signed By:RENA ROBERTSON MD
--- NOTE | 2021-08-14 00:06 | PC.NURSE ---
This technical publications writer took a Klonopin 0.5 mg from the Pyxis and was getting ready to cut the pill in half for the 0.25 mg prn dose. Patient said Oh, I have an order for a 0.50 mg of Klonopin three times a day as needed for anxiety. This technical publications writer had taken the Klonpin out of the Pyxis using the Klonpin 0.25 mg dose selection and should have had a 0.25 mg waste. Since the patient requested the entire tablet there was no waste to be done on the Pyxis. Nursing Instrument Assembly Supervisor was called to review with this technical publications writer and the Pyxis waste was noted as 0 .
[2021-08-14 06:39] VITALS: BP 90/54; PULSE 61; RESP 16; TEMP 36.6; O2SAT 96
[2021-08-14] MEDS: Dextroamphetamine Sulfate 5 MG TABLET 10 MG PO (10:11)
[2021-08-14] MEDS: lamoTRIgine 25 MG TABLET 50 MG PO (10:11)
[2021-08-14] MEDS: Escitalopram Oxalate 10 MG TABLET 30 MG PO (10:11)
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
[2021-08-14 17:09] VITALS: BP 99/69; PULSE 66; RESP 16; TEMP 36.8; O2SAT 98
[2021-08-14] MEDS: traZODone HCL 25 MG HALFTAB 75 MG PO (20:43)
[2021-08-14] MEDS: Melatonin 3 MG TABLET PO (20:43)
[2021-08-14] MEDS: Lithium Carbonate ER 450 MG TABLET.ER 900 MG PO (21:11)
[2021-08-14] MEDS: hydrOXYzine HCL 25 MG TABLET PO (21:15)
[2021-08-15 06:30] VITALS: BP 108/50; PULSE 78; RESP 18; TEMP 36.9; O2SAT 99
[2021-08-15] MEDS: Escitalopram Oxalate 10 MG TABLET 30 MG PO (09:26)
[2021-08-15] MEDS: Dextroamphetamine Sulfate 5 MG TABLET 7.5 MG PO (09:26)
[2021-08-15] MEDS: lamoTRIgine 25 MG TABLET 50 MG PO (09:27)
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
[2021-08-15] MEDS: clonazePAM 0.5 MG TABLET PO ×2 (13:37→16:33)
[2021-08-15 16:56] VITALS: BP 123/84; PULSE 95; TEMP 36.2; O2SAT 98
[2021-08-15] MEDS: Lithium Carbonate ER 450 MG TABLET.ER 900 MG PO (20:09)
[2021-08-15] MEDS: hydrOXYzine HCL 25 MG TABLET PO (20:10)
[2021-08-15] MEDS: traZODone HCL 100 MG TABLET PO (20:10)
[2021-08-15] MEDS: Melatonin 3 MG TABLET PO (20:11)
[2021-08-16] MEDS: lamoTRIgine 25 MG TABLET 50 MG PO (09:28)
[2021-08-16] MEDS: clonazePAM 0.5 MG TABLET PO (09:28)
[2021-08-16] MEDS: Escitalopram Oxalate 10 MG TABLET 30 MG PO (09:28)
[2021-08-16] MEDS: Dextroamphetamine Sulfate 5 MG TABLET 7.5 MG PO (09:29)
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
[2021-08-16 18:00] VITALS: BP 104/61; PULSE 85; TEMP 36.9
[2021-08-16] MEDS: Melatonin 3 MG TABLET PO (19:32)
[2021-08-16] MEDS: Lithium Carbonate ER 450 MG TABLET.ER 900 MG PO (19:32)
[2021-08-16] MEDS: traZODone HCL 100 MG TABLET PO (19:32)
[2021-08-16] MEDS: hydrOXYzine HCL 25 MG TABLET PO (19:32)
[2021-08-17] MEDS: Dextroamphetamine Sulfate 5 MG TABLET 7.5 MG PO (09:36)
[2021-08-17] MEDS: Escitalopram Oxalate 10 MG TABLET 30 MG PO (09:36)
[2021-08-17] MEDS: lamoTRIgine 25 MG TABLET 50 MG PO (09:36)
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
[2021-08-17 17:59] VITALS: BP 89/63; PULSE 72; RESP 16; TEMP 37.3; O2SAT 98
[2021-08-17] MEDS: traZODone HCL 100 MG TABLET PO (19:53)
[2021-08-17] MEDS: Melatonin 3 MG TABLET PO (19:53)
[2021-08-17] MEDS: hydrOXYzine HCL 25 MG TABLET PO (19:53)
[2021-08-17] MEDS: Lithium Carbonate ER 450 MG TABLET.ER 900 MG PO (19:53)
[2021-08-18 07:00] VITALS: BMI 23.5
[2021-08-18] MEDS: clonazePAM 0.5 MG TABLET PO ×3 (08:05→20:14)
[2021-08-18 08:47] LABS: Lithium 0.87 mmol/L (0.60-1.20)
[2021-08-18 08:51] LABS: Anion Gap 10 (12-20); Blood Urea Nitrogen 12 mg/dL (9-16); Carbon Dioxide 29 mmol/L (22-29); Chloride 103 mmol/L (96-108); Creatinine Clr Calc Pharmacy 63.1; Estimated Glomerular Filt Rate > 60; Potassium 4.4 mmol/L (3.3-5.1); Sodium 138 mmol/L (135-145)
--- NOTE | 2021-08-18 10:27 | P.PNPSI_ITS ---
Subjective Subjective Date of Service: 08/18/21 Reason For Visit: depression, SI Subjective Notes: Conditional Voluntary Healthcare Proxy: No Guardianship: No Medical Problems Affecting Mental Status: No Interim History: Continues anxious and tearful , si lithium therapuetic and pt frustrated it hasn't worked- advised to give more time- Doesn't want olanzapine due to s/e risk wondered with pt whether latuda might be option pt doesn't like to decide as she perseverates and gets fearful of risks/se upset when I mentioned ECT Medication Compliance: Yes Side effects from medications: No Attending Groups: No Review of Systems Acute medical concerns: No Medical Review of Systems: unchanged Mental Status Exam Mental Status Exam Narrative: groomed, Patient Appearance: Appropriate Patient Orientation: Person, Place, Time and Situation Level of Consciousness: Awake and Restless Patient Behavior: Cooperative, Fearful and Poor Eye Contact Mood Description: Withdrawn, Depressed and Anxious Affect Description: Constricted Ability to Follow Directions: Fair Speech Pattern: Clear Hallucinations: None Delusions: Not Present Thought Process: Intact and Rumination Thought Content: positive for Intact and positive for Suicidal Ideation Depressive Symptoms: Diff. Making Decisions and Muscle Tension Abnormal Motor Activity Signs and Symptoms: Restlessness Judgement: Fair Diagnostics Vital Signs (24Hr): Vital Signs - 24 hr 08/17/21 17:59 Temperature 99.1 F Pulse Rate 72 Respiratory Rate 16 Blood Pressure 89/63 L Pulse Oximetry 98 Body Mass Index 22.8 Labs Results: 07/18/21 19:58 08/18/21 08:03 Labs: Laboratory Results - last 48 hr 08/18/21 08/18/21 08:03 08:03 Sodium 138 Potassium 4.4 Chloride 103 Carbon Dioxide 29 Anion Gap 10 L BUN 12 Creatinine 0.84 Estim Creat Clear Calc 63.1 Estimated GFR > 60 TSH 2.80 [place]chas 0.87 Medications Medications Current Medications Acetaminophen (Acetaminophen 325 Mg Tablet) 650 mg PO Q6H PRN PRN Reason: Headache/Pain Mild Scale (1-3) Al Hydroxide/Mg Hydroxide (Magnesium Hydrox/Alum Hydrox 30 Ml Oral.Susp) 30 ml PO Q6H PRN PRN Reason: Heartburn/Nausea Clonazepam (Clonazepam 0.5 Mg Tablet) 0.25 mg PO QID PRN PRN Reason: mild Anxiety Last Admin: 08/12/21 09:58 Dose: 0.25 mg Documented by: Clonazepam (Clonazepam 0.5 Mg Tablet) 0.5 mg PO TID PRN PRN Reason: mod to severe anxiety Last Admin: 08/18/21 08:05 Dose: 0.5 mg Documented by: Clonazepam (Clonazepam 1 Mg Tablet) 1 mg PO DAILY PRN PRN Reason: severe anxiety Dextroamphetamine Sulfate (Dextroamphetamine Sulfate 5 Mg Tablet) 7.5 mg PO DAILY [facility] Last Admin: 08/17/21 09:36 Dose: 7.5 mg Documented by: Docusate Sodium (Docusate Sodium 100 Mg Capsule) 100 mg PO DAILY PRN PRN Reason: constipation Escitalopram Oxalate (Escitalopram Oxalate 10 Mg Tablet) 30 mg PO DAILY [facility] Last Admin: 08/17/21 09:36 Dose: 30 mg Documented by: Hydroxyzine HCl (Hydroxyzine Hcl 25 Mg Tablet) 25 mg PO BEDTIME [facility] Last Admin: 08/17/21 19:53 Dose: 25 mg Documented by: Hydroxyzine HCl (Hydroxyzine Hcl 10 Mg Tablet) 10 mg PO TID PRN PRN Reason: mild anxiety Last Admin: 08/04/21 09:01 Dose: 10 mg Documented by: Lamotrigine (Lamotrigine 25 Mg Tablet) 50 mg PO DAILY [facility] Last Admin: 08/17/21 09:36 Dose: 50 mg Documented by: Lidocaine (Lidocaine 4 % Patch Adh..Patch) 1 patch TRANSDERMA DAILY PRN; Protocol PRN Reason: back pain Last Admin: 08/12/21 20:27 Dose: 1 patch Documented by: Truchas Carbonate (Truchas Carbonate Er 450 Mg Tablet.Er) 900 mg PO BEDTIME [facility] Last Admin: 08/17/21 19:53 Dose: 900 mg Documented by: Magnesium Hydroxide (Milk Of Magnesia 30 Ml Oral.Susp) 30 ml PO DAILY PRN PRN Reason: Constipation Melatonin (Melatonin 3 Mg Tablet) 3 mg PO BEDTIME PRN PRN Reason: Sleep Last Admin: 08/17/21 19:53 Dose: 3 mg Documented by: Patient Own Medication( L- Methlyfolate 10mg Cap) 1 each PO DAILY [facility] Last Admin: 08/17/21 09:36 Dose: 1 each Documented by: Ondansetron HCl (Ondansetron Odt 4 Mg Tab.Rapdis) 4 mg TRANSLINGU Q6H PRN PRN Reason: Nausea Propranolol HCl (Propranolol Hcl 10 Mg Tablet) 10 mg PO BID PRN; Protocol PRN Reason: Anxiety Trazodone HCl (Trazodone Hcl 50 Mg Tablet) 50 mg PO BEDTIME PRN PRN Reason: insomnia Last Admin: 08/05/21 23:49 Dose: 50 mg Documented by: Trazodone HCl (Trazodone Hcl 100 Mg Tablet) 100 mg PO BEDTIME [facility] Last Admin: 08/17/21 19:53 Dose: 100 mg Documented by: Allergies Allergies Allergy/AdvReac Type Severity Reaction Status Date / Time nortriptyline [NORTRIPTYLINE] Allergy Unknown RASH Verified 07/20/21 10:56 Assessment & Plan Assessment & Plan (1) ANANDA (generalized anxiety disorder): Status: Acute Code(s): F41.1 - Generalized anxiety disorder (2) OCD (obsessive compulsive disorder): Status: Acute Code(s): F42.9 - Obsessive-compulsive disorder, unspecified Assessment and Plan: quite ruminative- (3) MDD (major depressive disorder), recurrent episode, severe: Status: Acute Code(s): F33.2 - Major depressive disorder, recurrent severe without psychotic features Assessment and Plan: consider add in latuda- Assessment and Plan: IMPRESSION: Patient is a bright, resilient 46-year-old female with history of ANANDA, OCD, depression intermittent SI who presents for worsening anxiety depression and SI. Patient is currently to tortured by endless worrying which causing her much anguish and difficulty when trying to make a decision.? She first presented with depression and passive SI however expresses that she got closer to attempting suicide than ever before.? Patient is open to medication management and also has insight to know that her OCD/anxiety interferes with her ability to make decisions and to tolerate medications long enough to get to a therapeutic dose and duration.? However this insight is often dwarfed by her powerful anxious feelings, clearly evident in discussions. Hospital Course day to day/reasonin/24- pt reports overall less frequency and intensity of suicidal ideation. She denies SI/HI. focused on potential side effects of medications, but so far tolerating them. Pt visible in the unit, social with select peers. No behavioral concerns. No medications changes. 08.18- felt better yesterday now si this am - discouraged discussed ? add latuda- will not make changes to plan can decide tomorrow DX Considerations/summations not yet fully responded to lithium but should give more time add in Latuda next in few days if not improving consistently does not want ECT mentioned PLAN: Patient on CV Q 15 minutes checks for safety continue current medications give lithium some time to work I spent minutes with the patient and/or on the patient floor today, greater than?50% of which was spent counseling/coordinating care. Patient educated on: medication risk/benefits and ECT (DO NOT MENTION TO PATIENT) Informed Consent: understands Reason for contiued inpatient stay Substantial Risk for: harm to self, inability to function and rapid decompensation
[2021-08-18] MEDS: Escitalopram Oxalate 10 MG TABLET 30 MG PO (10:32)
[2021-08-18] MEDS: Dextroamphetamine Sulfate 5 MG TABLET 7.5 MG PO (10:32)
[2021-08-18] MEDS: lamoTRIgine 25 MG TABLET 50 MG PO (10:32)
[2021-08-18 18:00] VITALS: BP 102/65; PULSE 68; RESP 16; TEMP 36.8; O2SAT 99
[2021-08-18] MEDS: hydrOXYzine HCL 25 MG TABLET PO (20:13)
[2021-08-18] MEDS: Melatonin 3 MG TABLET PO (20:14)
[2021-08-18] MEDS: traZODone HCL 100 MG TABLET PO (20:14)
[2021-08-18] MEDS: Lithium Carbonate ER 450 MG TABLET.ER 900 MG PO (20:14)
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
[2021-08-19] MEDS: Escitalopram Oxalate 10 MG TABLET 30 MG PO (10:21)
[2021-08-19] MEDS: lamoTRIgine 25 MG TABLET 50 MG PO (10:21)
[2021-08-19] MEDS: Dextroamphetamine Sulfate 5 MG TABLET 7.5 MG PO (10:22)
[2021-08-19] MEDS: clonazePAM 0.5 MG TABLET PO ×2 (10:23→20:39)
[2021-08-19] MEDS: lamoTRIgine 25 MG TABLET PO (14:35)
[2021-08-19 14:36] VITALS: BP 106/67; PULSE 88
[2021-08-19] MEDS: traZODone HCL 100 MG TABLET PO (20:19)
[2021-08-19] MEDS: Melatonin 3 MG TABLET PO (20:19)
[2021-08-19] MEDS: Lithium Carbonate ER 450 MG TABLET.ER 900 MG PO (20:19)
[2021-08-19] MEDS: hydrOXYzine HCL 25 MG TABLET PO (20:19)
[2021-08-20 06:00] VITALS: BP 93/55; PULSE 70; RESP 16; O2SAT 99
[2021-08-20] MEDS: lamoTRIgine 25 MG TABLET 75 MG PO (09:26)
[2021-08-20] MEDS: Escitalopram Oxalate 10 MG TABLET 30 MG PO (09:26)
[2021-08-20] MEDS: Dextroamphetamine Sulfate 5 MG TABLET 7.5 MG PO (09:26)
--- NOTE | 2021-08-20 12:56 | HO.PSYCHPN ---
Subjective Subjective Date of Service: 08/20/21 Reason For Visit: depression, SI Subjective Notes: Conditional Voluntary Healthcare Proxy: No Guardianship: No Medical Problems Affecting Mental Status: No Interim History: Ongoing perseveration about medication changes, throw her off and get her suicidal - had decided with dr shearer this am to decrease lithium to 600mg but now is wondering if melatonin is what is making her tired and if she was doing better because of lithium though she is worried 900mg is too high due to tremor and lvl was 0.87 after 5 days - (informed steady state is 7-10 d) Medication Compliance: Yes Side effects from medications: Yes (hand tremor, expected inc urinationg and thirst) Attending Groups: Intermittent Review of Systems Acute medical concerns: No Medical Review of Systems: changed (see above) Mental Status Exam Mental Status Exam Patient Appearance: Well Grooomed Patient Orientation: Person, Place and Situation Level of Consciousness: Awake Patient Behavior: Anxious Mood Description: Blunted Affect Description: Constricted Patient Cognition Impaired: No Ability to Follow Directions: Fair Speech Pattern: Clear Thought Process: Intact Thought Content: positive for Perseveration and positive for Preoccupation Depressive Symptoms: Diff. Making Decisions, Muscle Tension, Unhappiness and Loss of Energy (since lithium/melatonin? which) Abnormal Motor Activity Signs and Symptoms: Tremors Judgement: Fair Diagnostics Vital Signs (24Hr): Vital Signs - 24 hr 08/19/21 14:36 08/20/21 06:00 Pulse Rate 88 70 Respiratory Rate 16 Blood Pressure 106/67 93/55 L Pulse Oximetry 99 Body Mass Index 23.5 Labs Results: 07/18/21 19:58 08/18/21 08:03 Medications Medications Current Medications Acetaminophen (Acetaminophen 325 Mg Tablet) 650 mg PO Q6H PRN PRN Reason: Headache/Pain Mild Scale (1-3) Al Hydroxide/Mg Hydroxide (Magnesium Hydrox/Alum Hydrox 30 Ml Oral.Susp) 30 ml PO Q6H PRN PRN Reason: Heartburn/Nausea Bupropion HCl (Bupropion Hcl Xl 150 Mg Tab.Er.24h) 150 mg PO DAILY [facility] Last Admin: 08/20/21 11:35 Dose: Not Given Documented by: Clonazepam (Clonazepam 0.5 Mg Tablet) 0.25 mg PO QID PRN PRN Reason: mild Anxiety Last Admin: 08/12/21 09:58 Dose: 0.25 mg Documented by: Clonazepam (Clonazepam 0.5 Mg Tablet) 0.5 mg PO TID PRN PRN Reason: mod to severe anxiety Last Admin: 08/19/21 20:39 Dose: 0.5 mg Documented by: Clonazepam (Clonazepam 1 Mg Tablet) 1 mg PO DAILY PRN PRN Reason: severe anxiety Dextroamphetamine Sulfate (Dextroamphetamine Sulfate 5 Mg Tablet) 7.5 mg PO DAILY [facility] Last Admin: 08/20/21 09:26 Dose: 7.5 mg Documented by: Docusate Sodium (Docusate Sodium 100 Mg Capsule) 100 mg PO DAILY PRN PRN Reason: constipation Escitalopram Oxalate (Escitalopram Oxalate 10 Mg Tablet) 30 mg PO DAILY [facility] Last Admin: 08/20/21 09:26 Dose: 30 mg Documented by: Hydroxyzine HCl (Hydroxyzine Hcl 25 Mg Tablet) 25 mg PO BEDTIME [facility] Last Admin: 08/19/21 20:19 Dose: 25 mg Documented by: Hydroxyzine HCl (Hydroxyzine Hcl 10 Mg Tablet) 10 mg PO TID PRN PRN Reason: mild anxiety Last Admin: 08/04/21 09:01 Dose: 10 mg Documented by: Lamotrigine (Lamotrigine 25 Mg Tablet) 75 mg PO DAILY [facility] Last Admin: 08/20/21 09:26 Dose: 75 mg Documented by: Lidocaine (Lidocaine 4 % Patch Adh..Patch) 1 patch TRANSDERMA DAILY PRN; Protocol PRN Reason: back pain Last Admin: 08/12/21 20:27 Dose: 1 patch Documented by: [place] Carbonate ([place] Carbonate Er 300 Mg Tablet.Er) 600 mg PO BEDTIME [facility] Magnesium Hydroxide (Milk Of Magnesia 30 Ml Oral.Susp) 30 ml PO DAILY PRN PRN Reason: Constipation Melatonin (Melatonin 3 Mg Tablet) 3 mg PO BEDTIME PRN PRN Reason: Sleep Last Admin: 08/19/21 20:19 Dose: 3 mg Documented by: Patient Own Medication( L- Methlyfolate 10mg Cap) 1 each PO DAILY [facility] Last Admin: 08/20/21 09:27 Dose: 1 each Documented by: Ondansetron HCl (Ondansetron Odt 4 Mg Tab.Rapdis) 4 mg TRANSLINGU Q6H PRN PRN Reason: Nausea Propranolol HCl (Propranolol Hcl 10 Mg Tablet) 10 mg PO BID PRN; Protocol PRN Reason: Anxiety Trazodone HCl (Trazodone Hcl 50 Mg Tablet) 50 mg PO BEDTIME PRN PRN Reason: insomnia Last Admin: 08/05/21 23:49 Dose: 50 mg Documented by: Trazodone HCl (Trazodone Hcl 100 Mg Tablet) 100 mg PO BEDTIME [facility] Last Admin: 08/19/21 20:19 Dose: 100 mg Documented by: Allergies Allergies Allergy/AdvReac Type Severity Reaction Status Date / Time nortriptyline [NORTRIPTYLINE] Allergy Unknown RASH Verified 07/20/21 10:56 Assessment & Plan Assessment & Plan (1) ANANDA (generalized anxiety disorder): Status: Acute Code(s): F41.1 - Generalized anxiety disorder Assessment and Plan: generalized- but not as disabling as her ocd (2) OCD (obsessive compulsive disorder): Status: Acute Code(s): F42.9 - Obsessive-compulsive disorder, unspecified Assessment and Plan: quite ruminative- (3) MDD (major depressive disorder), recurrent episode, severe: Status: Acute Code(s): F33.2 - Major depressive disorder, recurrent severe without psychotic features Assessment and Plan: discussiong of roll of lithium decreasing her si and making her feel better split difference with dr shearer suggested 600mg and 900mg will give 750mg pt can decide to skip melatonin to see if that is sedating but lithium is not directly sedating Assessment and Plan: today will decrease lihtium to 750mg patient has meltaonin prn can not take it if she can sleep without it observe tomorrow : tremor and fatigue level also ? if si/or better am like she had today until this discussion of med change was raised again I spent minutes with the patient and/or on the patient floor today, greater than?50% of which was spent counseling/coordinating care. Patient educated on: medication risk/benefits Informed Consent: understands Reason for contiued inpatient stay Substantial Risk for: harm to self, inability to function and rapid decompensation
[2021-08-20 18:00] VITALS: BP 98/68; PULSE 61; TEMP 36.9
[2021-08-20] MEDS: Lithium Carbonate ER 300 MG TABLET.ER PO (19:51)
[2021-08-20] MEDS: hydrOXYzine HCL 25 MG TABLET PO (19:51)
[2021-08-20] MEDS: Lithium Carbonate ER 450 MG TABLET.ER PO (19:51)
[2021-08-20] MEDS: traZODone HCL 100 MG TABLET PO (19:51)
--- NOTE | 2021-08-21 | ECG_ITS ---
Test Reason : ekg changes Blood Pressure : / mmHG Vent. Rate : 077 BPM Atrial Rate : 077 BPM P-R Int : 128 ms QRS Dur : 096 ms QT Int : 402 ms P-R-T Axes : 045 049 032 degrees QTc Int : 454 ms Normal sinus rhythm Nonspecific T wave abnormality Intra-ventricular conduction delay Nonspecific T wave abnormality Inferior leads Abnormal ECG When compared with ECG of 14-AUG-2021 21:54, T wave amplitude has decreased in Inferior leads Referred By: Aleisha Mercado Electronically Signed By:RENA ROBERTSON MD
[2021-08-21 06:00] VITALS: BP 101/59; PULSE 80; RESP 16; TEMP 36.9; O2SAT 99
[2021-08-21] MEDS: lamoTRIgine 25 MG TABLET 75 MG PO (09:52)
[2021-08-21] MEDS: buPROPion HCl XL 150 MG TAB.ER.24H PO (09:52)
[2021-08-21] MEDS: Escitalopram Oxalate 10 MG TABLET 30 MG PO (09:53)
[2021-08-21] MEDS: Dextroamphetamine Sulfate 5 MG TABLET 7.5 MG PO (09:53)
--- NOTE | 2021-08-21 11:01 | HO.PSYCHPN ---
Subjective Subjective Date of Service: 08/21/21 Reason For Visit: depression, SI Subjective Notes: Conditional Voluntary Healthcare Proxy: No Guardianship: No Medical Problems Affecting Mental Status: No Interim History: Less suicidal today, still exhausted even though did not take melatonin last pm- some trouble sleeping relieved to feel less actively suicidal though still co hopeless and depressed also co tremor, and family thought she seemed slowed/slurry last pm on phone no vomiting or diarrhea, Medication Compliance: Yes Side effects from medications: Yes (see above) Attending Groups: No Review of Systems Acute medical concerns: No but will check lithium lvl due to patient complaints Review of Systems: tremor, feeling slowed Mental Status Exam Mental Status Exam Patient Appearance: Appropriate Patient Orientation: Person, Place, Time and Situation Level of Consciousness: Awake Patient Behavior: Appropriate and Restless Mood Description: Anxious Affect Description: Constricted Patient Cognition Impaired: No Ability to Follow Directions: Fair Speech Pattern: Clear Hallucinations: None Delusions: Not Present Thought Process: Rumination Thought Content: positive for Preoccupation Depressive Symptoms: Increased Anxiety (ongoing), Diff. Making Decisions and Hopelessness Judgement: Fair Diagnostics Vital Signs (24Hr): Vital Signs - 24 hr 08/20/21 18:00 08/21/21 06:00 Temperature 98.5 F 98.5 F Pulse Rate 61 80 Respiratory Rate 16 Blood Pressure 98/68 101/59 L Pulse Oximetry 99 Body Mass Index 23.5 Labs Results: 07/18/21 19:58 08/21/21 12:49 Labs: bun/cr fine lithium lvl down from .87 to .67 on lower dose- so definitely not toxic ? of just s/e of lithium - Medications Medications Current Medications Acetaminophen (Acetaminophen 325 Mg Tablet) 650 mg PO Q6H PRN PRN Reason: Headache/Pain Mild Scale (1-3) Al Hydroxide/Mg Hydroxide (Magnesium Hydrox/Alum Hydrox 30 Ml Oral.Susp) 30 ml PO Q6H PRN PRN Reason: Heartburn/Nausea Bupropion HCl (Bupropion Hcl Xl 150 Mg Tab.Er.24h) 150 mg PO DAILY [facility] Last Admin: 08/21/21 09:52 Dose: 150 mg Documented by: Clonazepam (Clonazepam 0.5 Mg Tablet) 0.25 mg PO QID PRN PRN Reason: mild Anxiety Last Admin: 08/12/21 09:58 Dose: 0.25 mg Documented by: Clonazepam (Clonazepam 0.5 Mg Tablet) 0.5 mg PO TID PRN PRN Reason: mod to severe anxiety Last Admin: 08/19/21 20:39 Dose: 0.5 mg Documented by: Clonazepam (Clonazepam 1 Mg Tablet) 1 mg PO DAILY PRN PRN Reason: severe anxiety Dextroamphetamine Sulfate (Dextroamphetamine Sulfate 5 Mg Tablet) 7.5 mg PO DAILY [facility] Last Admin: 08/21/21 09:53 Dose: 7.5 mg Documented by: Docusate Sodium (Docusate Sodium 100 Mg Capsule) 100 mg PO DAILY PRN PRN Reason: constipation Escitalopram Oxalate (Escitalopram Oxalate 10 Mg Tablet) 30 mg PO DAILY [facility] Last Admin: 08/21/21 09:53 Dose: 30 mg Documented by: Hydroxyzine HCl (Hydroxyzine Hcl 25 Mg Tablet) 25 mg PO BEDTIME [facility] Last Admin: 08/20/21 19:51 Dose: 25 mg Documented by: Hydroxyzine HCl (Hydroxyzine Hcl 10 Mg Tablet) 10 mg PO TID PRN PRN Reason: mild anxiety Last Admin: 08/04/21 09:01 Dose: 10 mg Documented by: Lamotrigine (Lamotrigine 25 Mg Tablet) 75 mg PO DAILY [facility] Last Admin: 08/21/21 09:52 Dose: 75 mg Documented by: Lidocaine (Lidocaine 4 % Patch Adh..Patch) 1 patch TRANSDERMA DAILY PRN; Protocol PRN Reason: back pain Last Admin: 08/12/21 20:27 Dose: 1 patch Documented by: [place] Carbonate ([place] Carbonate Er 300 Mg Tablet.Er) 300 mg PO BEDTIME [facility] Last Admin: 08/20/21 19:51 Dose: 300 mg Documented by: [place] Carbonate ([place] Carbonate Er 450 Mg Tablet.Er) 450 mg PO BEDTIME [facility] Last Admin: 08/20/21 19:51 Dose: 450 mg Documented by: Magnesium Hydroxide (Milk Of Magnesia 30 Ml Oral.Susp) 30 ml PO DAILY PRN PRN Reason: Constipation Melatonin (Melatonin 3 Mg Tablet) 3 mg PO BEDTIME PRN PRN Reason: Sleep Last Admin: 08/19/21 20:19 Dose: 3 mg Documented by: Patient Own Medication( L- Methlyfolate 10mg Cap) 1 each PO DAILY [facility] Last Admin: 08/21/21 09:52 Dose: 1 each Documented by: Ondansetron HCl (Ondansetron Odt 4 Mg Tab.Rapdis) 4 mg TRANSLINGU Q6H PRN PRN Reason: Nausea Propranolol HCl (Propranolol Hcl 10 Mg Tablet) 10 mg PO BID PRN; Protocol PRN Reason: Anxiety Trazodone HCl (Trazodone Hcl 50 Mg Tablet) 50 mg PO BEDTIME PRN PRN Reason: insomnia Last Admin: 08/05/21 23:49 Dose: 50 mg Documented by: Trazodone HCl (Trazodone Hcl 100 Mg Tablet) 100 mg PO BEDTIME [facility] Last Admin: 08/20/21 19:51 Dose: 100 mg Documented by: Allergies Allergies Allergy/AdvReac Type Severity Reaction Status Date / Time nortriptyline [NORTRIPTYLINE] Allergy Unknown RASH Verified 07/20/21 10:56 Assessment & Plan Assessment & Plan (1) ANANDA (generalized anxiety disorder): Status: Acute Code(s): F41.1 - Generalized anxiety disorder Assessment and Plan: generalized- but not as disabling as her ocd (2) OCD (obsessive compulsive disorder): Status: Acute Code(s): F42.9 - Obsessive-compulsive disorder, unspecified Assessment and Plan: ongoing rumination on medications and side effects (3) MDD (major depressive disorder), recurrent episode, severe: Status: Acute Code(s): F33.2 - Major depressive disorder, recurrent severe without psychotic features Assessment and Plan: Pt feeling a bit better, less si! fearful of lowering lihtium due to relief from si still fatigued and preoccupied with s/e and risks of lihtium did take wellbutrin today Assessment and Plan: today will decrease lihtium to 600mg due to s/e ongoing fatigue and tremor advised to contine wellbutrin may help energy lvl to offset I spent minutes with the patient and/or on the patient floor today, greater than?50% of which was spent counseling/coordinating care. Patient educated on: medication risk/benefits and other (labs,ekg) Informed Consent: understands and further education needed Reason for contiued inpatient stay Substantial Risk for: harm to self and rapid decompensation
[2021-08-21 13:15] LABS: Lithium 0.67 mmol/L (0.60-1.20)
[2021-08-21 13:21] LABS: Anion Gap 13 (12-20); Blood Urea Nitrogen 14 mg/dL (9-16); Carbon Dioxide 25 mmol/L (22-29); Chloride 103 mmol/L (96-108); Creatinine Clr Calc Pharmacy 65.5; Estimated Glomerular Filt Rate > 60; Glucose Random 87 mg/dL (60-115); Potassium 4.5 mmol/L (3.3-5.1); Sodium 136 mmol/L (135-145)
[2021-08-21 18:00] VITALS: BP 108/63; PULSE 77; TEMP 37.1
[2021-08-21] MEDS: hydrOXYzine HCL 25 MG TABLET PO (19:34)
[2021-08-21] MEDS: traZODone HCL 100 MG TABLET PO (19:34)
[2021-08-21] MEDS: Lithium Carbonate ER 300 MG TABLET.ER 600 MG PO (19:34)
[2021-08-21] MEDS: Melatonin 3 MG TABLET PO (19:34)
[2021-08-22] MEDS: clonazePAM 0.5 MG TABLET PO (00:54)
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
[2021-08-22] MEDS: buPROPion HCl XL 150 MG TAB.ER.24H PO (09:54)
[2021-08-22] MEDS: Dextroamphetamine Sulfate 5 MG TABLET 7.5 MG PO (09:54)
[2021-08-22] MEDS: Escitalopram Oxalate 10 MG TABLET 30 MG PO (09:54)
--- NOTE | 2021-08-22 10:05 | ECG_ITS ---
Test Reason : ON LITHIUM Blood Pressure : / mmHG Vent. Rate : 071 BPM Atrial Rate : 071 BPM P-R Int : 130 ms QRS Dur : 094 ms QT Int : 410 ms P-R-T Axes : 043 048 028 degrees QTc Int : 445 ms Normal sinus rhythm Nonspecific T wave abnormality Inferior leads Abnormal ECG When compared with ECG of 21-AUG-2021 13:44, No significant change was found Referred By: James Bansal Electronically Signed By:RENA ROBERTSON MD
[2021-08-22] MEDS: lamoTRIgine 100 MG TABLET PO (12:48)
[2021-08-22 17:48] VITALS: BP 104/62; PULSE 79; TEMP 36.4; O2SAT 99
[2021-08-22] MEDS: Lithium Carbonate ER 300 MG TABLET.ER 600 MG PO (19:44)
[2021-08-22] MEDS: Melatonin 3 MG TABLET PO (19:44)
[2021-08-22] MEDS: hydrOXYzine HCL 25 MG TABLET PO (19:44)
[2021-08-22] MEDS: traZODone HCL 100 MG TABLET PO (19:44)
[2021-08-23] MEDS: Escitalopram Oxalate 10 MG TABLET 30 MG PO (10:54)
[2021-08-23] MEDS: Dextroamphetamine Sulfate 5 MG TABLET 7.5 MG PO (10:55)
[2021-08-23] MEDS: buPROPion HCl XL 300 MG TAB.ER.24H PO (10:55)
[2021-08-23] MEDS: lamoTRIgine 100 MG TABLET PO (10:55)
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
[2021-08-23 18:00] VITALS: BP 126/75; PULSE 67; RESP 16; TEMP 36.6
[2021-08-23] MEDS: traZODone HCL 50 MG TABLET 150 MG PO (19:45)
[2021-08-23] MEDS: clonazePAM 0.5 MG TABLET PO (19:46)
[2021-08-23] MEDS: hydrOXYzine HCL 25 MG TABLET PO (19:46)
[2021-08-23] MEDS: Melatonin 3 MG TABLET PO (19:46)
[2021-08-23] MEDS: Lithium Carbonate ER 450 MG TABLET.ER PO (19:46)
[2021-08-23 20:03] VITALS: BP 109/67; PULSE 72
[2021-08-24] MEDS: Dextroamphetamine Sulfate 5 MG TABLET 7.5 MG PO (09:46)
[2021-08-24] MEDS: Escitalopram Oxalate 10 MG TABLET 30 MG PO (09:47)
[2021-08-24] MEDS: lamoTRIgine 100 MG TABLET PO (09:47)
[2021-08-24] MEDS: buPROPion HCl XL 300 MG TAB.ER.24H PO (09:47)
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
[2021-08-24] MEDS: Acetaminophen 325 MG TABLET 650 MG PO (18:45)
[2021-08-24 18:53] VITALS: BP 111/72; PULSE 70; RESP 18; TEMP 36.7; O2SAT 100
[2021-08-24] MEDS: Lithium Carbonate ER 450 MG TABLET.ER PO (20:01)
[2021-08-24] MEDS: Melatonin 3 MG TABLET PO (20:01)
[2021-08-24] MEDS: traZODone HCL 100 MG TABLET PO (20:01)
[2021-08-24] MEDS: hydrOXYzine HCL 25 MG TABLET PO (20:01)
[2021-08-25] MEDS: clonazePAM 0.5 MG TABLET PO ×2 (06:20→21:43)
[2021-08-25] MEDS: Escitalopram Oxalate 10 MG TABLET 30 MG PO (09:23)
[2021-08-25] MEDS: lamoTRIgine 100 MG TABLET PO (09:23)
[2021-08-25] MEDS: buPROPion HCl XL 300 MG TAB.ER.24H PO (09:23)
[2021-08-25] MEDS: Dextroamphetamine Sulfate 5 MG TABLET 7.5 MG PO (10:14)
[2021-08-25 11:57] LABS: COVID-19 Test Negative (Negative)
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
[2021-08-25 18:00] VITALS: BP 110/72; PULSE 74; RESP 16; TEMP 37.1; O2SAT 98
[2021-08-25] MEDS: traZODone HCL 100 MG TABLET PO (21:43)
[2021-08-25] MEDS: hydrOXYzine HCL 25 MG TABLET PO (21:43)
[2021-08-25] MEDS: Melatonin 3 MG TABLET PO (21:43)
[2021-08-25] MEDS: Lithium Carbonate ER 450 MG TABLET.ER PO (21:43)
[2021-08-26] MEDS: buPROPion HCl XL 300 MG TAB.ER.24H PO (08:48)
[2021-08-26] MEDS: Dextroamphetamine Sulfate 5 MG TABLET 7.5 MG PO (09:16)
[2021-08-26] MEDS: Escitalopram Oxalate 10 MG TABLET 30 MG PO (09:17)
[2021-08-26] MEDS: lamoTRIgine 100 MG TABLET PO (09:17)
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
== END 2021-08-26 14:09 | disposition home or self-care (01) | DRG 751 ==
LOC: HO.ED 19:43 → HO.PM5 07-19 15:36
PROVIDERS: Psychiatry & Neurology Psychiatry; Admitting Provider Clinical Nurse Specialist Psychiatric/Mental Health, Adult; Emergency Provider Emergency Medicine; Visit Provider Psychiatry & Neurology Psychiatry
DX: F33.2 Major depressive disorder, recurrent severe without psychotic features (principal); R45.851 Suicidal ideations; F42.9 Obsessive-compulsive disorder, unspecified; F41.1 Generalized anxiety disorder; Z20.822 Contact with and (suspected) exposure to COVID-19; Z79.899 Other long term (current) drug therapy
CPT/HCPCS: 36415; 80048; 80051; 80061; 80076; 80178; 80307; 81001; 81025; 82077; 82565; 82607; 82746; 83036; 83735; 84439; 84443; 84520; 85025; 87635; 93005; 99285

== ENCOUNTER 2021-10-13 09:30 | Outpatient (RCR) | payer OTHER, SELFPAY ==
[2021-08-31 12:03] VITALS: BMI 22.6
--- NOTE | 2021-08-31 12:03 | PC.ADMIT ---
Patient is a 46 year old female who was referred to [facility] by [facility] unit d/t increased depression with SI and plan to cut her wrists or overdose on medications. Patient stated with encouragement from others she went to the Emergency room for help[ and was admitted on 07/19/21 and discharged on August 26, 2021. Patient recent breakup triggered her symptoms. Patient also struggling with OCD and Anxiety sxs. Patient currently reports some passive SI stating she does have thoughts,(but not very much), such as, life is really hard, nice not to be here . Patient denied plan or intent to kill or harm herself. Asked patient who she could contact if she started to feel unsafe and she stated her friends, mother, or crisis who's number she has in her phone. Patient is currently staying with her friend Fang for the next couple of weeks. Fang is patients second emergency contact who Anna gave verbal consent to call in a emergency. Fang's address and phone number is in patient's chart and staff is aware of the aforementioned information. Patient is alert and oriented x4. Calm and cooperative. Presents with depressed mood and affect. Speech is soft. Patient gave permission to email her a copy of her safety plan. Medications reconciled with patient and [facility] behavioral health records. Patient reports taking them as prescribed. Patient reports she thinks she may be having side effects to some of the medications reporting shaky, muscle weakness in hands and legs when she is bending her knees or walking upstairs. Also stated she has sweaty palms and feet along with some breast tenderness which she thinks may be caused by her, cycle'. I asked patient if Dr Bansal who will be following patient at [facility] is aware and she stated he was.
--- NOTE | 2021-08-31 14:09 | P.HPPSP_ITS ---
HPI Date of Service: 08/31/21 Chief Complaint: MDD, recurrent, severe w/o Psychotic features Sources of Information: patient interviewed, chart reviewed and crisis/core team assessment reviewed HPI Narrative: Patient is a 46-year-old intelligent, self aware and resilient female with history of depression, generalized anxiety disorder, OCD, fibromyalgia and chronic fatigue syndrome who now presents [facility] following discharge from inpatient psychiatric unit after a month long visit. Patient was initially admitted to [facility] inpatient unit for severe depression with SI and severe anxiety/OCD symptoms. Patient was eventually started on Lexapro and [place] ictal; she was also started on lithium to see if it could be helpful while waiting for to Lamictal to become therapeutic. Patient experienced many side effects; she had a history of being hypersensitive to medications and it was difficult to assess whether side effects type symptoms were due to medication or due to her anxiety. While lithium did seem to help reduce suicidality, it produced side effects of tremor, some ataxia, daytime sedation and this medication was tapered down; it was left at a lower dose of 450 mg however to see if on a lower dose a could still be helpful without side effects. Patient was also started on Wellbutrin since it had been helpful in the past. Over time, her SI fully resolved, depression got better and anxiety under better control. She felt ready for discharge and agreed to go to [facility] for continued outpatient therapy and medication management. Patient reports that she remains depressed and anxious but it is still significantly reduced and tolerable. Patient says that she occasionally has intermittent passive SI but never any plans or intentions and is able to ignore it. She continues to ruminate on various things but less so and is having some increased success in her ability to use coping strategies to limit hyper focusing on an anxious worry. Patient continues to report side effects of hand tremor, shaky legs and mildly unsteady gait and daytime tiredness which upon review of medications seems to be mostly attributed to lithium. (the symptoms started after patient had been tolerating Lexapro 30 mg for a few weeks and before Wellbutrin was started. And also while Lamictal was still at a low dose). Patient continues to have sweaty palm switch has happened before on SSRIs. She does complain of some bilateral breast tenderness which is not uncommon for her during her menses however it has been more bothersome and lasting longer than usual. She says this seems to be lessening however. Of note patient was once diagnosed with an essential tremor and agrees that her current tremor could be due to a mild essential tremor exacerbated by current medication combinations. Patient wants to remain on Lexapro, Wellbutrin and Lamictal and agrees to continue titrating Lamictal. She also agrees to lowering lithium down to 300 mg; she was on lithium 300 mg in the past and did not have negative side effects (however lit hium combined with an SSRI does increase risk of tremor). Past Psychiatric History: 3 psychiatric hospitalization (patient would discharge but come back in a few days). Her 1st was in 2016 for SI; 2nd psychiatric hospitalization was in 2019 at [facility] and days later at [facility]. -no history of suicide attempts Multiple medication trials (patient has over 8 pages listing medication trials and her perceived responses covering past year or so) Medical Evaluation Reviewed: No [facility] Medical History (Updated 09/01/21 @ 14:13 by James Bansal MD) Arthritis Chronic fatigue syndrome Fibromyalgia ANANDA (generalized anxiety disorder) MDD (major depressive disorder), recurrent episode, severe OCD (obsessive compulsive disorder) Family History: mother: anxiety Social History: Lives alone; has a master's degree Substance History: none Trauma History: Parent's divorce Diagnostics Vital Signs (24Hr): BMI result Body Mass Index 22.6 Meds/Allergies Allergies Allergies Allergy/AdvReac Type Severity Reaction Status Date / Time nortriptyline [NORTRIPTYLINE] Allergy Unknown RASH Verified 07/20/21 10:56 ketamine AdvReac Paranoid Verified 08/31/21 12:02 thoughts Mental Status Exam Mental Status Exam Narrative: Pt is alert and oriented; behavior is cooperative; dressed in casual attire,?hair down with good hygiene; mood is described as depressed and anxious but better; affect depressed but brighter and pt smiles and laughs at times; eye contact good; Speech is normal rate, prosody and volume; no psychomotor retardation?noted; thought process is organized, linear and goal directed; thought content on treatment and?on various worries about life, side-effects but less so...otherwise it is pertinent to relevant topics and without any delusional content, paranoid ideations or grandiosity; no SI or HI; No AVH and no evidence of perceptual disturbance. ?Patients insight and judgment are adequate. Telehealth Telehealth Location of provider rendering services: practice address ([facility] Location of patient: other (staying at friends house for a while ([employer])) Patient Identification confirmed using: Name, : Yes Telehealth method: video Patient verbally consented to treatment: Yes Patient verbally consented to billing insurance company: No Time spent with patient (mins): 45 Assessment & Plan Assessment & Plan (1) MDD (major depressive disorder), recurrent episode, severe: Status: Chronic Code(s): F33.2 - Major depressive disorder, recurrent severe without psychotic features (2) OCD (obsessive compulsive disorder): Status: Chronic Code(s): F42.9 - Obsessive-compulsive disorder, unspecified (3) ANANDA (generalized anxiety disorder): Status: Chronic Code(s): F41.1 - Generalized anxiety disorder (4) Chronic fatigue syndrome: Status: Acute Code(s): R53.82 - Chronic fatigue, unspecified (5) Fibromyalgia: Status: Acute Code(s): M79.7 - Fibromyalgia Assessment and Plan: IMPRESSION: Patient is a 46-year-old intelligent, self aware and resilient female with history of depression, generalized anxiety disorder, OCD, fibromyalgia and chronic fatigue syndrome who now presents to [facility] following discharge from inpatient psychiatric unit after a month long visit. Patient was initially admitted to [facility] inpatient unit for severe depression with SI and severe anxiety/OCD symptoms. Patient was eventually started on Lexapro and Lamictal; she was also started on lithium to see if it could be helpful while waiting for to Lamictal to become therapeutic. Patient experienced many side effects; she had a history of being hypersensitive to medications and it was difficult to assess whether side effects type symptoms were due to medication or due to her anxiety. While lithium did seem to help reduce suicidality, it produced side effects of tremor, some ataxia, daytime sedation and this medication was tapered down; it was left at a lower dose of 450 mg however to see if on a lower dose a could still be helpful without side effects. Patient was also started on Wellbutrin since it had been helpful in the past. Over time, her SI fully resolved, depression got better and anxiety under better control. She felt ready for discharge and agreed to go [facility] for continued outpatient therapy and medication management. Patient reports that she remains depressed and anxious but it is still significantly reduced and tolerable. Patient says that she occasionally has intermittent passive SI but never any plans or intentions and is able to ignore it. She continues to ruminate on various things but less so and is having some increased success in her ability to use coping strategies to limit hyper focusing on an anxious worry. Patient continues to have side effects from current medication regimen and agrees to try and reduce these by further management speech. She reports of increased bilateral breast tenderness which is not uncommon during her menses however it has been going on for longer and more bothersome than usual; patient says this seems to be subsiding however. -will continue to engage in medication management to further reduce depression/anxiety -will continue to address side effects through med management PLAN: -partial day program -continued medication management -lowered lithium ER to 300 mg; helping? maybe once Lamictal at higher dose, will not need Patient continues to report side effects of hand tremor, shaky legs and mildly unsteady gait and daytime tiredness which upon review of medications seems to be mostly attributed to lithium. (the symptoms started after patient had been tolerating Lexapro 30 mg for a few weeks and before Wellbutrin was started. And also while Lamictal was still at a low dose; lithium combined with an SSRI does increase risk of tremor; of note, pt has dx of essential tremor which may be exacerbated by med combo) -continue Lexapro 30 mg; seems to be helping although does cause diaphoresis, typical for her w/ ssri -Continue Wellbutrin xR 300mg -ativan prn -Lamictal 125mg; will continue to titrate. Certification I certify that partial hospital treatment is medically necessary due to the symptoms and problems resulting from the patient's mental illness and the failure to treat the patient at the partial hospital level of care would likely result in the patient requiring inpatient psychiatric care which could not be prevented at a less intensive level of care.
--- NOTE | 2021-09-01 15:21 | PC.NURSE ---
Case opened in treatment team
--- NOTE | 2021-09-02 13:57 | HO.PHPPROGNO ---
Subjective Subjective Date of Service: 09/02/21 Reason For Visit: MDD, recurrent, severe w/o Psychotic features Interim History: Patient reports that some symptoms have subsided going to lithium 300 mg. She said that the shaking is in her legs is gone and there is no more unsteadiness. Breast tenderness continues to subside; musculoskeletal chest pain also is subsiding. She reports that she has still tired during the day but it is a little better. Patient says that her hands remain tremulous. Her mood remains better night, no SI. She still finds herself ruminating on issues but less intensely and does not end up feeling upset. Patient however still finds herself anxious and her mood depressed despite feeling better. Patient agrees to increase Lamictal to 150 mg starting on 09/05. The goal going forward would be to remain on current regimen and and if patient feels significantly better to eventually taper down lithium and see if it is no longer needed. Discussed patient's relationship with her ex partner, her feelings about it, whether not to pursue a friendship. Patient examined some of her behaviors in relationships and was able to recognize some patterns that are giving her insight. Mental Status Exam Mental Status Exam Narrative: ?Pt is alert and oriented; behavior is cooperative; dressed in casual attire,?hair down with good hygiene; mood is described as depressed and anxious but better; affect depressed but brighter and pt smiles and laughs at times; eye contact good; Speech is normal rate, prosody and volume; no psychomotor retardation?noted;? thought process is organized, linear and goal directed; thought content on treatment, past relationships; otherwise TC pertinent to relevant topics and without any delusional content, paranoid ideations or grandiosity; no SI or HI; No AVH and no evidence of perceptual disturbance. ?Patients insight and judgment are fair and adequate. Diagnostics Vital Signs (24Hr): BMI result Body Mass Index 22.6 Assessment & Plan Assessment & Plan (1) MDD (major depressive disorder), recurrent episode, severe: Status: Chronic Code(s): F33.2 - Major depressive disorder, recurrent severe without psychotic features (2) OCD (obsessive compulsive disorder): Status: Chronic Code(s): F42.9 - Obsessive-compulsive disorder, unspecified (3) ANANDA (generalized anxiety disorder): Status: Chronic Code(s): F41.1 - Generalized anxiety disorder (4) Chronic fatigue syndrome: Status: Acute Code(s): R53.82 - Chronic fatigue, unspecified (5) Fibromyalgia: Status: Acute Code(s): M79.7 - Fibromyalgia Assessment and Plan: IMPRESSION: Patient is a 46-year-old intelligent, self aware and resilient female with history of depression, generalized anxiety disorder, OCD, fibromyalgia and chronic fatigue syndrome who now presents to [facility] following discharge from inpatient psychiatric unit after a month long visit.? Patient was initially admitted to [facility] inpatient unit for severe depression with SI and severe anxiety/OCD symptoms.? Patient was eventually started on Lexapro and Lamictal; she was also started on lithium to see if it could be helpful while waiting for to Lamictal to become therapeutic.? Patient experienced many side effects; she had a history of being hypersensitive to medications and it was difficult to assess whether side effects type symptoms were due to medication or due to her anxiety.? While lithium did seem to help reduce suicidality, it produced side effects of tremor, some ataxia, daytime sedation and this medication was tapered down; it was left at a lower dose of 450 mg however to see if on a lower dose a could still be helpful without side effects.? Patient was also started on Wellbutrin since it had been helpful in the past.? Over time, her SI fully resolved, depression got better and anxiety under better control.? She felt ready for discharge and agreed to go to [facility] for continued outpatient therapy and medication management.? Patient reports that she remains depressed and anxious but it is still significantly reduced and tolerable.? Patient says that she occasionally has intermittent passive SI but never any plans or intentions and is able to ignore it.? She continues to ruminate on various things but less so and is having some increased success in her ability to use coping strategies to limit hyper focusing on an anxious worry.? -will continue to engage in medication management to further reduce depression/anxiety -breast tenderness subsiding PLAN: -partial day program -continued medication management -lowered lithium ER to 300 mg; lower dose has resolved some side-effects (shakiness, unsteady walking, some tiredness) Patient reported side effects of hand tremor, shaky legs and mildly unsteady gait and daytime tiredness which upon review of medications seems to be mostly attributed to lithium. (the symptoms started after?patient had been tolerating Lexapro 30 mg for a few weeks and before Wellbutrin was started.? And also while Lamictal was still at a low dose; lithium combined with an SSRI does increase risk of tremor; of note, pt has dx of essential tremor which may be exacerbated by med combo) -continue Lexapro 30 mg; seems to be helping although does cause diaphoresis, typical for her w/ ssri -Continue Wellbutrin xR 300mg -ativan prn -INCREASE to Lamictal 150mg on 09/05 Certification I certify that partial hospital treatment is medically necessary due to the symptoms and problems resulting from the patient's mental illness and the failure to treat the patient at the partial hospital level of care would likely result in the patient requiring inpatient psychiatric care which could not be prevented at a less intensive level of care. I spent minutes with the patient and/or on the patient floor today, greater than?50% of which was spent counseling/coordinating care. Discharge Plan Discharge Attending provider: Nabeel Holland Primary Care Provider: Sinai Bowling Medications: New lithium carbonate 300 mg tablet extended release 300 mg PO BEDTIME 30 Days Qty: 30 RF: 0 lamotrigine [Lamictal] 150 mg tablet 150 mg PO DAILY 30 Days Qty: 30 RF: 0 No Action bupropion HCl 300 mg Tablet Extended Release 24 Hr 300 mg PO DAILY 30 Days Qty: 30 RF: 0 clonazepam 1 mg Tablet 1 mg PO DAILY PRN (Reason: severe anxiety) 30 Days Qty: 30 RF: 0 escitalopram oxalate 10 mg Tablet 30 mg PO DAILY 30 Days Qty: 90 RF: 0 hydroxyzine HCl 25 mg Tablet 25 mg PO BEDTIME PRN (Reason: congestion) 30 Days Qty: 30 RF: 0 lamotrigine 100 mg Tablet 100 mg PO DAILY 30 Days Qty: 30 RF: 0 lithium carbonate 450 mg Tablet Extended Release 450 mg PO BEDTIME 15 Days Qty: 15 RF: 1 melatonin 3 mg Tablet 3 mg PO BEDTIME PRN (Reason: Sleep) 30 Days Qty: 30 RF: 0 Patient Own Medication 1 ea PO DAILY Qty: 0 RF: 0 dextroamphetamine 5 mg tablet 7.5 mg PO QAM 30 Days Qty: 45 RF: 0 trazodone 50 mg tablet 100 mg PO BEDTIME PRN (Reason: insomnia) 30 Days Qty: 90 RF: 0 propranolol 10 mg tablet 10 mg PO BID PRN (Reason: Anxiety) 30 Days Qty: 60 RF: 0 lamotrigine [Lamictal] 25 mg tablet 25 mg PO DAILY 30 Days Qty: 30 RF: 0 Referrals: Sinai Bowling MD [Primary Care Provider] - 1 Week Stand Alone Forms: Patient Portal Discharge page Telehealth Telehealth Location of provider rendering services: practice address ([facility]) Location of patient: other (at her friends house) Patient Identification confirmed using: Name, : Yes Telehealth method: video Patient verbally consented to treatment: Yes Patient verbally consented to billing insurance company: No Time spent with patient (mins): 45
--- NOTE | 2021-09-05 13:15 | P.HPPSP_ITS ---
HPI Date of Service: 09/05/21 Chief Complaint: MDD, recurrent, severe w/o Psychotic features HPI Past Psychiatric History: 3 psychiatric hospitalization (patient would discharge but come back in a few days). Her 1st was in 2016 for SI; 2nd psychiatric hospitalization was in 2019 at [facility] and days later at [facility]. -no history of suicide attempts Multiple medication trials (patient has over 8 pages listing medication trials and her perceived responses covering past year or so) [facility] Medical History (Updated 09/05/21 @ 12:11 by Sherin Mason RN) Arthritis Chronic fatigue syndrome Chronic rhinitis Fibromyalgia ANANDA (generalized anxiety disorder) IBS (irritable bowel syndrome) MDD (major depressive disorder), recurrent episode, severe OCD (obsessive compulsive disorder) Family History: mother: anxiety Social History: Lives alone; has a master's degree Trauma History: Parent's divorce Diagnostics Vital Signs (24Hr): BMI result Body Mass Index 22.6 Meds/Allergies Allergies Allergies Allergy/AdvReac Type Severity Reaction Status Date / Time nortriptyline [NORTRIPTYLINE] Allergy Unknown RASH Verified 07/20/21 10:56 ketamine AdvReac Paranoid Verified 08/31/21 12:02 thoughts Assessment & Plan Certification I certify that partial hospital treatment is medically necessary due to the symptoms and problems resulting from the patient's mental illness and the failure to treat the patient at the partial hospital level of care would likely result in the patient requiring inpatient psychiatric care which could not be prevented at a less intensive level of care.
--- NOTE | 2021-09-05 13:59 | P.PNPSP_ITS ---
Subjective Subjective Date of Service: 09/05/21 Reason For Visit: MDD, recurrent, severe w/o Psychotic features Interim History: Patient reports increased depression since being lowered from lithium down to 300 mg q.h.s. on 08/31. Patient had noticed increased side effects primarily primarily leg tremors/shaking and daytime tiredness which both improved as lithium was lowered however she thinks that this depression is due to having lowered the dose; she also notices that her passive SI, which remains without intent or plans has increased a little bit in its intensity and this worries her. Patient reached out to her ex partner last week to send a birthday gift to her child which brought up old feelings; patient has been missing her partner, thinking about her frequently and subsequently feeling more discouraged about the way her life has turned out. But while patient recognizes this situation is contributory she does feel that this recent increased depression is more organic than due to this recent interaction. Assignment Desk Editor and patient discussed possible treatment plans and patient agrees that having just recovered from such a severe depression it is preferable to deal with the potential side effects of lithium then it is to risk worsening depression and return of SI. Patient hopes that as Lamictal can be further titrated and possibly Wellbutrin increased her mood will improve well enough to go back down on the lithium. It is also possible that lithium 450 mg will have less side effects. Assignment Desk Editor did recommend going up to 600 mg however patient wanted only go to 450. She is currently safe and she is living at her best friend's house while attending partial. Patient agrees to reach out for help if she feels unsafe Mental Status Exam Mental Status Exam Narrative: Pt is alert and oriented; behavior is cooperative; dressed in casual attire; wearing hat; mood is described as depressed and affect looks more depressed; some tearfulness; eye contact adequate; Speech is a little slower; no psychomotor retardation?noted;? thought process is organized, linear and goal directed; thought content on treatment, symptoms, past relationships; otherwise TC? pertinent to relevant topics and without any delusional content, paranoid ideations or grandiosity; intermittent passive SI; no HI; No AVH and no evidence of perceptual disturbance. ?Patients insight and judgment are fair and adequate. Diagnostics Vital Signs (24Hr): BMI result Body Mass Index 22.6 Assessment & Plan Assessment & Plan (1) MDD (major depressive disorder), recurrent episode, severe: Status: Chronic Code(s): F33.2 - Major depressive disorder, recurrent severe without psychotic features (2) OCD (obsessive compulsive disorder): Status: Chronic Code(s): F42.9 - Obsessive-compulsive disorder, unspecified (3) ANANDA (generalized anxiety disorder): Status: Chronic Code(s): F41.1 - Generalized anxiety disorder (4) Chronic fatigue syndrome: Status: Acute Code(s): R53.82 - Chronic fatigue, unspecified (5) Fibromyalgia: Status: Acute Code(s): M79.7 - Fibromyalgia Assessment and Plan: IMPRESSION: Patient is a 46-year-old intelligent, self aware and resilient female with history of depression, generalized anxiety disorder, OCD, fibromyalgia and chronic fatigue syndrome who now presents to [facility] following discharge from inpatient psychiatric unit after a month long visit.? Patient was initially admitted to [facility] inpatient unit for severe depression with SI and severe anxiety/OCD symptoms.? Patient was eventually started on Lexapro and Lamictal; she was also started on lithium to see if it could be helpful while wa iting for to Lamictal to become therapeutic.? Patient experienced many side effects; she had a history of being hypersensitive to medications and it was difficult to assess whether side effects type symptoms were due to medication or due to her anxiety.? While lithium did seem to help reduce suicidality, it produced side effects of tremor, some ataxia, daytime sedation and this medication was tapered down; it was left at a lower dose of 450 mg however to see if on a lower dose a could still be helpful without side effects.? Patient was also started on Wellbutrin since it had been helpful in the past.? Over time, her SI fully resolved, depression got better and anxiety under better control.? She felt ready for discharge and agreed to go to [facility] for continued outpatient therapy and medication management.? Patient reports that she remains depressed and anxious but it is still significantly reduced and tolerable.? Patient says that she occasionally has intermittent passive SI but never any plans or intentions and is able to ignore it.? She continues to ruminate on various things but less so and is having some increased success in her ability to use coping strategies to limit hyper focusing on an anxious worry.? -will continue to engage in medication management to further reduce depression/anxiety -breast tenderness resolved 09/05 it increased depression since lowering lithium to 300 mg on 08/31; increased intensity in SI though it still remains passive. Patient does not want a risk return to her recent severe depression and wants to go up on lithium back to 450 mg and into or side effects. -will continue to titrate Lamictal and hopefully Wellbutrin which may lower patient's need for lithium PLAN: -partial day program -continued medication management -INCREASE [facility] back to 450mg due to increased depression (lower dose resolved some side-effects (shakiness, unsteady walking, some tiredness; the symptoms started after pt had been tolerating Lexapro 30 mg for a few weeks and before Wellbutrin was started and Lamictal still at a low dose); pt has hx of essential tremor which seems to have been worsened by lithium (which combined w/ SSRI increases tremor risk) -continue Lamictal 150mg (started this dose on 09/05) -continue Lexapro 30 mg; seems to be helping although does cause diaphoresis, typical for her w/ ssri -Continue Wellbutrin xR 300mg -ativan prn Certification I certify that partial hospital treatment is medically necessary due to the symptoms and problems resulting from the patient's mental illness and the failure to treat the patient at the partial hospital level of care would likely result in the patient requiring inpatient psychiatric care which could not be prevented at a less intensive level of care. I spent minutes with the patient and/or on the patient floor today, greater than?50% of which was spent counseling/coordinating care. Discharge Plan Discharge Attending provider: Nabeel Holland Primary Care Provider: Sinai Bowling Medications: New lithium carbonate 300 mg tablet extended release 300 mg PO BEDTIME 30 Days Qty: 30 RF: 0 lamotrigine [Lamictal] 150 mg tablet 150 mg PO DAILY 30 Days Qty: 30 RF: 0 No Action bupropion HCl 300 mg Tablet Extended Release 24 Hr 300 mg PO DAILY 30 Days Qty: 30 RF: 0 clonazepam 1 mg Tablet 1 mg PO DAILY PRN (Reason: severe anxiety) 30 Days Qty: 30 RF: 0 escitalopram oxalate 10 mg Tablet 30 mg PO DAILY 30 Days Qty: 90 RF: 0 hydroxyzine HCl 25 mg Tablet 25 mg PO BEDTIME PRN (Reason: congestion) 30 Days Qty: 30 RF: 0 lamotrigine 100 mg Tablet 100 mg PO DAILY 30 Days Qty: 30 RF: 0 lithium carbonate 450 mg Tablet Extended Release 450 mg PO BEDTIME 15 Days Qty: 15 RF: 1 melatonin 3 mg Tablet 3 mg PO BEDTIME PRN (Reason: Sleep) 30 Days Qty: 30 RF: 0 Patient Own Medication 1 ea PO DAILY Qty: 0 RF: 0 dextroamphetamine 5 mg tablet 7.5 mg PO QAM 30 Days Qty: 45 RF: 0 trazodone 50 mg tablet 100 mg PO BEDTIME PRN (Reason: insomnia) 30 Days Qty: 90 RF: 0 propranolol 10 mg tablet 10 mg PO BID PRN (Reason: Anxiety) 30 Days Qty: 60 RF: 0 lamotrigine [Lamictal] 25 mg tablet 25 mg PO DAILY 30 Days Qty: 30 RF: 0 Referrals: Sinai Bowling MD [Primary Care Provider] - 1 Week Stand Alone Forms: Patient Portal Discharge page
--- NOTE | 2021-09-07 14:04 | P.PNPSP_ITS ---
Subjective Subjective Date of Service: 09/07/21 Reason For Visit: MDD, recurrent, severe w/o Psychotic features Interim History: Patient reports that her mood is a little better and SI has resolved. She did not go up on the lithium dose like previously discussed, deciding that the side effects were just to 1 pleasant and she wanted to wait a few more days to see if her mood improved. Patient says she is less obsessive then she has been in the past and was able to tell herself to stop perseverating on a topic and successfully distracted herself. 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 [place] Pumper and patient also discussed her relationship with her ex partner and examined origin of guilty feelings. Patient still has daytime tiredness and will switch Lamictal to bedtime to see if it helps resolve Mental Status Exam Mental Status Exam Narrative: Pt is alert and oriented; behavior is cooperative; dressed in casual attire,?hair down, wearing knitted hat; mood is described as a little better and affect brighter; pt smiles and laughs at times; eye contact good; Speech is normal rate, prosody and volume; no psychomotor retardation?noted;? thought process is organized, linear and goal directed; thought content on treatment, past relationships; otherwise TC? pertinent to relevant topics and without any delusional content, paranoid ideations or grandiosity; no SI or HI; No AVH and no evidence of perceptual disturbance. ?Patients insight and judgment are fair and adequate. Diagnostics Vital Signs (24Hr): BMI result Body Mass Index 22.6 Assessment & Plan Assessment & Plan (1) MDD (major depressive disorder), recurrent episode, severe: Status: Chronic Code(s): F33.2 - Major depressive disorder, recurrent severe without psychotic features (2) ANANDA (generalized anxiety disorder): Status: Chronic Code(s): F41.1 - Generalized anxiety disorder (3) OCD (obsessive compulsive disorder): Status: Chronic Code(s): F42.9 - Obsessive-compulsive disorder, unspecified (4) Chronic fatigue syndrome: Status: Acute Code(s): R53.82 - Chronic fatigue, unspecified (5) Fibromyalgia: Status: Acute Code(s): M79.7 - Fibromyalgia Assessment and Plan: IMPRESSION: Patient is a 46-year-old intelligent, self aware and resilient female with history of depression, generalized anxiety disorder, OCD, fibromyalgia and chronic fatigue syndrome who now presents to [facility] following discharge from inpatient psychiatric unit after a month long visit.? Patient was initially admitted to [facility] inpatient unit for severe depression with SI and severe anxiety/OCD symptoms.? Patient was eventually started on Lexapro and Lamictal; she was also started on lithium to see if it could be helpful while waiting for to Lamictal to become therapeutic.? Patient experienced many side effects; she had a history of being hypersensitive to medications and it was d ifficult to assess whether side effects type symptoms were due to medication or due to her anxiety.? While lithium did seem to help reduce suicidality, it produced side effects of tremor, some ataxia, daytime sedation and this medication was tapered down; it was left at a lower dose of 450 mg however to see if on a lower dose a could still be helpful without side effects.? Patient was also started on Wellbutrin since it had been helpful in the past.? Over time, her SI fully resolved, depression got better and anxiety under better control.? She felt ready for discharge and agreed to go to [facility] for continued outpatient therapy and medication management.? Patient reports that she remains depressed and anxious but it is still significantly reduced and tolerable.? Patient says that she occasionally has intermittent passive SI but never any plans or intentions and is able to ignore it.? She continues to ruminate on various things but less so and is having some increased success in her ability to use coping strategies to limit hyper focusing on an anxious worry.? -will continue to engage in medication management to further reduce depression/anxiety -breast tenderness resolved 09/05 increased depression since lowering lithium to 300 mg on 08/31; increased intensity in SI though it still remains passive.? Patient does not want a risk return to her recent severe depression and wants to go up on lithium back to 450 mg and into or side effects. -will continue to titrate Lamictal and hopefully Wellbutrin which may lower patient's need for lithium 09/07: Depression seems to have resolved; patient decided to remain on 300 mg after all. Patient utilizing coping skills and able to disengage from some of her obsessive thinking. Feels that partial hospitalization is helping. Still has hand tremor, however shakiness in legs remains better and only a minor irritant; still has daytime tiredness. PLAN: -partial day program -continued medication management -CONTINUED on [place] 300mg; depression increase has resolved; (lowered dose to help w/ side-effects of shakiness, unsteady walking, some tiredness; the symptoms started after pt had been tolerating Lexapro 30 mg for a few weeks and before Wellbutrin was started and Lamictal still at a low dose); pt has hx of essential tremor which seems to have been worsened by lithium (which combined w/ SSRI increases tremor risk) -continue Lamictal 150mg (started this dose on 09/05); will switch to bedtime to see if helps lessen daytime tiredness -continue Lexapro 30 mg; seems to be helping although does cause diaphoresis, typical for her w/ ssri -Continue Wellbutrin xR 300mg -ativan prn Certification I certify that partial hospital treatment is medically necessary due to the symptoms and problems resulting from the patient's mental illness and the failure to treat the patient at the partial hospital level of care would likely result in the patient requiring inpatient psychiatric care which could not be prevented at a less intensive level of care. I spent minutes with the patient and/or on the patient floor today, greater than?50% of which was spent counseling/coordinating care. Discharge Plan Discharge Attending provider: Nabeel Holland Primary Care Provider: Sinai Bowling Medications: New lithium carbonate 300 mg tablet extended release 300 mg PO BEDTIME 30 Days Qty: 30 RF: 0 lamotrigine [Lamictal] 150 mg tablet 150 mg PO DAILY 30 Days Qty: 30 RF: 0 No Action bupropion HCl 300 mg Tablet Extended Release 24 Hr 300 mg PO DAILY 30 Days Qty: 30 RF: 0 clonazepam 1 mg Tablet 1 mg PO DAILY PRN (Reason: severe anxiety) 30 Days Qty: 30 RF: 0 escitalopram oxalate 10 mg Tablet 30 mg PO DAILY 30 Days Qty: 90 RF: 0 hydroxyzine HCl 25 mg Tablet 25 mg PO BEDTIME PRN (Reason: congestion) 30 Days Qty: 30 RF: 0 lamotrigine 100 mg Tablet 100 mg PO DAILY 30 Days Qty: 30 RF: 0 lithium carbonate 450 mg Tablet Extended Release 450 mg PO BEDTIME 15 Days Qty: 15 RF: 1 melatonin 3 mg Tablet 3 mg PO BEDTIME PRN (Reason: Sleep) 30 Days Qty: 30 RF: 0 Patient Own Medication 1 ea PO DAILY Qty: 0 RF: 0 dextroamphetamine 5 mg tablet 7.5 mg PO QAM 30 Days Qty: 45 RF: 0 trazodone 50 mg tablet 100 mg PO BEDTIME PRN (Reason: insomnia) 30 Days Qty: 90 RF: 0 propranolol 10 mg tablet 10 mg PO BID PRN (Reason: Anxiety) 30 Days Qty: 60 RF: 0 lamotrigine [Lamictal] 25 mg tablet 25 mg PO DAILY 30 Days Qty: 30 RF: 0 Referrals: Sinai Bowling MD [Primary Care Provider] - 1 Week Stand Alone Forms: Patient Portal Discharge page Telehealth Telehealth Location of provider rendering services: practice address ([facility]) Location of patient: other (living at [facility]) Patient Identification confirmed using: Name, : Yes Telehealth method: video Patient verbally consented to treatment: Yes Time spent with patient (mins): 45
--- NOTE | 2021-09-09 13:04 | HO.PHPPROGNO ---
Subjective Subjective Date of Service: 09/09/21 Reason For Visit: MDD, recurrent, severe w/o Psychotic features Interim History: Patient reports that she is overall doing a little better,; although mood still depressed no SI. She is better able to combat worried thoughts and is having some more success keeping them from overwhelming her by distracting herself. Patient feels partial is helping. Discussed behavioral activation and patient is working to get more involved in the community and is starting to play pickleball. Patient continues to report daytime tiredness and will try to switch Lamictal to bedtime to see if that can help. Mental Status Exam Mental Status Exam Narrative: Pt is alert and oriented; behavior is cooperative; dressed in casual attire,?hair down, wearing knitted hat; mood is described as a little better and affect brighter; pt smiles and laughs at times; eye contact good; Speech is normal rate, prosody and volume; no psychomotor retardation?noted;? thought process is organized, linear and goal directed; thought content on treatment, past relationships; otherwise TC? pertinent to relevant topics and without any delusional content, paranoid ideations or grandiosity; no SI or HI; No AVH and no evidence of perceptual disturbance. ?Patients insight and judgment are fair and adequate. Diagnostics Vital Signs (24Hr): BMI result Body Mass Index 22.6 Assessment & Plan Assessment & Plan (1) MDD (major depressive disorder), recurrent episode, severe: Status: Chronic Code(s): F33.2 - Major depressive disorder, recurrent severe without psychotic features (2) ANANDA (generalized anxiety disorder): Status: Chronic Code(s): F41.1 - Generalized anxiety disorder (3) OCD (obsessive compulsive disorder): Status: Chronic Code(s): F42.9 - Obsessive-compulsive disorder, unspecified (4) Chronic fatigue syndrome: Status: Acute Code(s): R53.82 - Chronic fatigue, unspecified (5) Fibromyalgia: Status: Acute Code(s): M79.7 - Fibromyalgia Assessment and Plan: IMPRESSION: Patient is a 46-year-old intelligent, self aware and resilient female with history of depression, generalized anxiety disorder, OCD, fibromyalgia and chronic fatigue syndrome who now presents to [facility] following discharge from inpatient psychiatric unit after a month long visit.? Patient was initially admitted to [facility] inpatient unit for severe depression with SI and severe anxiety/OCD symptoms.? Patient was eventually started on Lexapro and Lamictal; she was also started on lithium to see if it could be helpful while waiting for to Lamictal to become therapeutic.? Patient experienced many side effects; she had a history of being hypersensitive to medications and it was difficult to assess whether side effects type symptoms were due to medication or due to her anxiety.? While lithium did seem to help reduce suicidality, it produced side effects of tremor, some ataxia, daytime sedation and this medication was tapered down; it was left at a lower dose of 450 mg however to see if on a lower dose a could still be helpful without side effects.? Patient was also started on Wellbutrin since it had been helpful in the past.? Over time, her SI fully resolved, depression got better and anxiety under better control.? She felt ready for discharge and agreed to go to [facility] for continued outpatient therapy and medication management.? Patient reports that she remains depressed and anxious but it is still significantly reduced and tolerable.? Patient says that she occasionally has intermittent passive SI but never any plans or intentions and is able to ignore it.? She continues to ruminate on various things but less so and is having some increased success in her ability to use coping strategies to limit hyper focusing on an anxious worry.? -will continue to engage in medication management to further reduce depression/anxiety -breast tenderness resolved 09/05 increased depression since lowering lithium to 300 mg on 08/31; increased intensity in SI though it still remains passive.? Patient does not want a risk return to her recent severe depression and wants to go up on lithium back to 450 mg and into or side effects. -will continue to titrate Lamictal and hopefully Wellbutrin which may lower patient's need for lithium 09/07:? Depression seems to have resolved; patient decided to remain on 300 mg after all.? Patient utilizing coping skills and able to disengage from some of her obsessive thinking.? Feels that partial hospitalization is helping.? Still has hand tremor, however shakiness in legs remains better and only a minor irritant; still has daytime tiredness. 09/09 patient says mood is a little better though she still depressed and anxious. Denies SI. Patient feels that her worries are a little less overwhelming and she is able to stop them from taking over, now better able to distract herself. Patient stop taking clonazepam and melatonin and says she did sleep well enough and is perhaps a little less tired during the day. Medication management remains challenging as patient has side effects from lithium and escitalopram, including a side effect from the combination being increased tremor; history of tinnitus from increased dose of Wellbutrin although she did tolerate Wellbutrin for quite a while without tinnitus. Patient has chronic fatigue, essential tremor and fibromyalgia also complicate whether not patient is experiencing medication side effects or symptoms are from organic etiology PLAN: -partial day program -continued medication management -CONTINUED on [place] 300mg; depression increase has resolved; (lowered dose to help w/ side-effects of shakiness, unsteady walking, some tiredness; the symptoms started after pt had been tolerating Lexapro 30 mg for a few weeks and before Wellbutrin was started and Lamictal still at a low dose); pt has hx of essential tremor which seems to have been worsened by lithium (which combined w/ SSRI increases tremor risk) -continue Lamictal 150mg (started this dose on 09/05); will switch to bedtime to see if helps lessen daytime tiredness -continue Lexapro 30 mg; seems to be helping although does cause diaphoresis, typical for her w/ ssri -Continue Wellbutrin xR 300mg -ativan prn Certification I certify that partial hospital treatment is medically necessary due to the symptoms and problems resulting from the patient's mental illness and the failure to treat the patient at the partial hospital level of care would likely result in the patient requiring inpatient psychiatric care which could not be prevented at a less intensive level of care. I spent minutes with the patient and/or on the patient floor today, greater than?50% of which was spent counseling/coordinating care. Discharge Plan Discharge Attending provider: Nabeel Holland Primary Care Provider: Sinai Bowling Medications: New lithium carbonate 300 mg tablet extended release 300 mg PO BEDTIME 30 Days Qty: 30 RF: 0 lamotrigine [Lamictal] 150 mg tablet 150 mg PO DAILY 30 Days Qty: 30 RF: 0 No Action bupropion HCl 300 mg Tablet Extended Release 24 Hr 300 mg PO DAILY 30 Days Qty: 30 RF: 0 clonazepam 1 mg Tablet 1 mg PO DAILY PRN (Reason: severe anxiety) 30 Days Qty: 30 RF: 0 escitalopram oxalate 10 mg Tablet 30 mg PO DAILY 30 Days Qty: 90 RF: 0 hydroxyzine HCl 25 mg Tablet 25 mg PO BEDTIME PRN (Reason: congestion) 30 Days Qty: 30 RF: 0 lamotrigine 100 mg Tablet 100 mg PO DAILY 30 Days Qty: 30 RF: 0 lithium carbonate 450 mg Tablet Extended Release 450 mg PO BEDTIME 15 Days Qty: 15 RF: 1 melatonin 3 mg Tablet 3 mg PO BEDTIME PRN (Reason: Sleep) 30 Days Qty: 30 RF: 0 Patient Own Medication 1 ea PO DAILY Qty: 0 RF: 0 dextroamphetamine 5 mg tablet 7.5 mg PO QAM 30 Days Qty: 45 RF: 0 trazodone 50 mg tablet 100 mg PO BEDTIME PRN (Reason: insomnia) 30 Days Qty: 90 RF: 0 propranolol 10 mg tablet 10 mg PO BID PRN (Reason: Anxiety) 30 Days Qty: 60 RF: 0 lamotrigine [Lamictal] 25 mg tablet 25 mg PO DAILY 30 Days Qty: 30 RF: 0 Referrals: Sinai Bowling MD [Primary Care Provider] - 1 Week Stand Alone Forms: Patient Portal Discharge page
--- NOTE | 2021-09-13 13:49 | P.PNPSP_ITS ---
Subjective Subjective Date of Service: 09/13/21 Reason For Visit: MDD, recurrent, severe w/o Psychotic features Interim History: Patient reports continued anxiety and depression which are overall better but remain a problem and interfere with some level of functioning. Patient says that she went to the store and has continued to play pickleball for recreation however she feels that she gets overwhelmed quickly. Patient is anxious about seeing people from her past that she knows which keeps her from going out as much. She also reports struggle with motivation. She agrees that behavioral activation is important and is going to make a list of activities that she can engage in. Patient is still having some success in combatting excessive worries and has been more able to redirect her thoughts or distract herself from obsessional thinking. Patient endorses intermittent passive SI with thoughts such as it would be easier if she were not alive, however she denies any intent or plans and says these thoughts are a femoral. She is a little anxious about going into the holiday weekend since she will mostly be alone however she feels she can stay safe and will reach out for help if otherwise. 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 In the past she eventually got to tinnitus from increased dose of Wellbutrin Mental Status Exam Mental Status Exam Narrative: ?Pt is alert and oriented; behavior is cooperative; dressed in casual attire,?hair down, wearing knitted hat; mood is described as OK and affect a little down though she still intermittently smiles and laughs at times; eye contact good; Speech is normal rate, prosody and volume; no psychomotor retardation?noted;? thought process is organized, linear and goal directed; thought content on treatment, past relationships; otherwise TC? pertinent to relevant topics and without any delusional content, paranoid ideations or grandiosity; intermittent passive SI, no intent or plans; no HI; No AVH and no evidence of perceptual disturbance. ?Patients insight and judgment are fair and adequate. Diagnostics Vital Signs (24Hr): BMI result Body Mass Index 22.6 Assessment & Plan Assessment & Plan (1) MDD (major depressive disorder), recurrent episode, severe: Status: Chronic Code(s): F33.2 - Major depressive disorder, recurrent severe without psychotic features (2) ANANDA (generalized anxiety disorder): Status: Chronic Code(s): F41.1 - Generalized anxiety disorder (3) OCD (obsessive compulsive disorder): Status: Chronic Code(s): F42.9 - Obsessive-compulsive disorder, unspecified (4) Chronic fatigue syndrome: Status: Acute Code(s): R53.82 - Chronic fatigue, unspecified (5) Fibromyalgia: Status: Acute Code(s): M79.7 - Fibromyalgia Assessment and Plan: IMPRESSION: Patient is a 46-year-old intelligent, self aware and resilient female with history of depression, generalized anxiety disorder, OCD, fibromyalgia and chronic fatigue syndrome who now presents to [facility] following marquez laura from inpatient psychiatric unit after a month long visit.? Patient was initially admitted to [facility] inpatient unit for severe depression with SI and severe anxiety/OCD symptoms.? Patient was eventually started on Lexapro and Lamictal; she was also started on lithium to see if it could be helpful while waiting for to Lamictal to become therapeutic.? Patient experienced many side effects; she had a history of being hypersensitive to medications and it was difficult to assess whether side effects type symptoms were due to medication or due to her anxiety.? While lithium did seem to help reduce suicidality, it produced side effects of tremor, some ataxia, daytime sedation and this medication was tapered down; it was left at a lower dose of 450 mg however to see if on a lower dose a could still be helpful without side effects.? Patient was also started on Wellbutrin since it had been helpful in the past.? Over time, her SI fully resolved, depression got better and anxiety under better control.? She felt ready for discharge and agreed to go to [facility] for continued outpatient therapy and medication management.? Patient reports that she remains depressed and anxious but it is still significantly reduced and tolerable.? Patient says that she occasionally has intermittent passive SI but never any plans or intentions and is able to ignore it.? She continues to ruminate on various things but less so and is having some increased success in her ability to use coping strategies to limit hyper focusing on an anxious worry.? -will continue to engage in medication management to further reduce depression/anxiety -breast tenderness resolved 09/05 increased depression since lowering lithium to 300 mg on 08/31; increased intensity in SI though it still remains passive.? Patient does not want a risk return to her recent severe depression and wants to go up on lithium back to 450 mg and into or side effects. -will continue to titrate Lamictal and hopefully Wellbutrin which may lower patient's need for lithium 09/07:? Depression seems to have resolved; patient decided to remain on 300 mg after all.? Patient utilizing coping skills and able to disengage from some of her obsessive thinking.? Feels that partial hospitalization is helping.? Still has hand tremor, however shakiness in legs remains better and only a minor irritant; still has daytime tiredness. 09/09 patient says mood is a little better though she still depressed and anxious.? Denies SI.? Patient feels that her worries are a little less overwhelming and she is able to stop them from taking over, now better able to distract herself.? Patient stop taking clonazepam and melatonin and says she did sleep well enough and is perhaps a little less tired during the day.? Medication management remains challenging as patient has side effects from lithium and escitalopram, including a side effect from the combination being increased tremor; history of tinnitus from increased dose of Wellbutrin although she did tolerate Wellbutrin for quite a while without tinnitus.? Patient has chronic fatigue, essential tremor and fibromyalgia also complicate whether not patient is experiencing medication side effects or symptoms are from organic etiology 09/13 remains stable; some passive SI but patient says she feels safe and has no intent or plans; patient is proactive in working on getting more involved in the community; discussed medication management for depression and reviewed risks/side effects of various options; she will consider increasing Wellbutrin to address her continued depression. Lexapro remains causing diaphoretic side effects so will not increase this higher; also likely as it is combined with lithium is worsening patient has chronic essential tremor. PLAN: -partial day program -continued medication management -CONTINUED on [place] 300mg; depression increase has resolved; (lowered dose to help w/ side-effects of shakiness, unsteady walking, some tiredness; the symptoms started after pt had been tolerating Lexapro 30 mg for a few weeks and before Wellbutrin was started and Lamictal still at a low dose); pt has hx of essential tremor which seems to have been worsened by lithium (which combined w/ SSRI increases tremor risk) -continue Lamictal 150mg (started this dose on 09/05); will switch to bedtime to see if helps lessen daytime tiredness -continue Lexapro 30 mg; seems to be helping although does cause diaphoresis, typical for her w/ ssri -Continue Wellbutrin xR 300mg -ativan prn Certification I certify that partial hospital treatment is medically necessary due to the symptoms and problems resulting from the patient's mental illness and the failure to treat the patient at the partial hospital level of care would likely result in the patient requiring inpatient psychiatric care which could not be prevented at a less intensive level of care. I spent minutes with the patient and/or on the patient floor today, greater than?50% of which was spent counseling/coordinating care. Discharge Plan Discharge Attending provider: Nabeel Holland Primary Care Provider: Sinai Bowling Medications: New lithium carbonate 300 mg tablet extended release 300 mg PO BEDTIME 30 Days Qty: 30 RF: 0 lamotrigine [Lamictal] 150 mg tablet 150 mg PO DAILY 30 Days Qty: 30 RF: 0 No Action bupropion HCl 300 mg Tablet Extended Release 24 Hr 300 mg PO DAILY 30 Days Qty: 30 RF: 0 clonazepam 1 mg Tablet 1 mg PO DAILY PRN (Reason: severe anxiety) 30 Days Qty: 30 RF: 0 escitalopram oxalate 10 mg Tablet 30 mg PO DAILY 30 Days Qty: 90 RF: 0 hydroxyzine HCl 25 mg Tablet 25 mg PO BEDTIME PRN (Reason: congestion) 30 Days Qty: 30 RF: 0 lamotrigine 100 mg Tablet 100 mg PO DAILY 30 Days Qty: 30 RF: 0 lithium carbonate 450 mg Tablet Extended Release 450 mg PO BEDTIME 15 Days Qty: 15 RF: 1 melatonin 3 mg Tablet 3 mg PO BEDTIME PRN (Reason: Sleep) 30 Days Qty: 30 RF: 0 Patient Own Medication 1 ea PO DAILY Qty: 0 RF: 0 dextroamphetamine 5 mg tablet 7.5 mg PO QAM 30 Days Qty: 45 RF: 0 trazodone 50 mg tablet 100 mg PO BEDTIME PRN (Reason: insomnia) 30 Days Qty: 90 RF: 0 propranolol 10 mg tablet 10 mg PO BID PRN (Reason: Anxiety) 30 Days Qty: 60 RF: 0 lamotrigine [Lamictal] 25 mg tablet 25 mg PO DAILY 30 Days Qty: 30 RF: 0 Referrals: Sinai Bowling MD [Primary Care Provider] - 1 Week Stand Alone Forms: Patient Portal Discharge page Telehealth Telehealth Location of provider rendering services: practice address Patient Identification confirmed using: Name, : Yes Telehealth method: video Patient verbally consented to treatment: Yes Patient verbally consented to billing insurance company: No Time spent with patient (mins): 37
--- NOTE | 2021-09-15 13:45 | HO.PHPPROGNO ---
Subjective Subjective Date of Service: 09/15/21 Reason For Visit: MDD, recurrent, severe w/o Psychotic features Interim History: Patient reports increased sad feelings as the holiday weekend approaches. She denies any active SI though she has intermittent passive SI she is able to ignore it and has no intent or plans. Patient shares that she is grieving the loss of the think she will never have due to mental illness and discusses this process. 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 Patient has a plan for the weekend and will make a schedule for her time. She will reach out for help if she feels unsafe. 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 dosing as that has helped her in the past with both maintaining focus and fighting against the pull of OCD type worries. Mental Status Exam Mental Status Exam Narrative: Pt is alert and oriented; behavior is cooperative; dressed in casual attire,?hair down; mood is described as OK and affect a little down though she still intermittently smiles and laughs at times; eye contact good; Speech is normal rate, prosody and volume; no psychomotor retardation?noted;? thought process is organized, linear and goal directed; thought content on treatment, past relationships; otherwise TC? pertinent to relevant topics and without any delusional content, paranoid ideations or grandiosity; intermittent passive SI, no intent or plans; no HI; No AVH and no evidence of perceptual disturbance. ?Patients insight and judgment are fair and adequate. Diagnostics Vital Signs (24Hr): BMI result Body Mass Index 22.6 Assessment & Plan Assessment & Plan (1) MDD (major depressive disorder), recurrent episode, severe: Status: Chronic Code(s): F33.2 - Major depressive disorder, recurrent severe without psychotic features (2) ANANDA (generalized anxiety disorder): Status: Chronic Code(s): F41.1 - Generalized anxiety disorder (3) OCD (obsessive compulsive disorder): Status: Chronic Code(s): F42.9 - Obsessive-compulsive disorder, unspecified (4) Chronic fatigue syndrome: Status: Acute Code(s): R53.82 - Chronic fatigue, unspecified (5) Fibromyalgia: Status: Acute Code(s): M79.7 - Fibromyalgia Assessment and Plan: IMPRESSION: Patient is a 46-year-old intelligent, self aware and resilient female with history of depression, generalized anxiety disorder, OCD, fibromyalgia and chronic fatigue syndrome who now presents to [facility] following discharge from inpatient psychiatric unit after a month long visit.? Patient was initially admitted to [facility] inpatient unit for severe depression with SI and severe anxiety/OCD symptoms.? Patient was eventually started on Lexapro and Lamictal; she was also started on lithium to see if it could be helpful while waiting for to Lamictal to become therapeutic.? Patient experienced many side effects; she had a history of being hypersensitive to medications and it was difficult to assess whether side effects type symptoms were due to medication or due to her anxiety.? While lithium did seem to help reduce suicidality, it produced side effects of tremor, some ataxia, daytime sedation and this medication was tapered down; it was left at a lower dose of 450 mg however to see if on a lower dose a could still be helpful without side effects.? Patient was also started on Wellbutrin since it had been helpful in the past.? Over time, her SI fully resolved, depression got better and anxiety under better control.? She felt ready for discharge and agreed to go to [facility] for continued outpatient therapy and medication management.? Patient reports that she remains depressed and anxious but it is still significantly reduced and tolerable.? Patient says that she occasionally has intermittent passive SI but never any plans or intentions and is able to ignore it.? She continues to ruminate on various things but less so and is having some increased success in her ability to use coping strategies to limit hyper focusing on an anxious worry.? -will continue to engage in medication management to further reduce depression/anxiety -breast tenderness resolved 09/05 increased depression since lowering lithium to 300 mg on 08/31; increased intensity in SI though it still remains passive.? Patient does not want a risk return to her recent severe depression and wants to go up on lithium back to 450 mg and into or side effects. -will continue to titrate Lamictal and hopefully Wellbutrin which may lower patient's need for lithium 09/07:? Depression seems to have resolved; patient decided to remain on 300 mg after all.? Patient utilizing coping skills and able to disengage from some of her obsessive thinking.? Feels that partial hospitalization is helping.? Still has hand tremor, however shakiness in legs remains better and only a minor irritant; still has daytime tiredness. 09/09 patient says mood is a little better though she still depressed and anxious.? Denies SI.? Patient feels that her worries are a little less overwhelming and she is able to stop them from taking over, now better able to distract herself.? Patient stop taking clonazepam and melatonin and says she did sleep well enough and is perhaps a little less tired during the day.? Medication management remains challenging as patient has side effects from lithium and escitalopram, including a side effect from the combination being increased tremor; history of tinnitus from increased dose of Wellbutrin although she did tolerate Wellbutrin for quite a while without tinnitus.? Patient has chronic fatigue, essential tremor and fibromyalgia also complicate whether not patient is experiencing medication side effects or symptoms are from organic etiology 09/13 remains stable; some passive SI but patient says she feels safe and has no intent or plans; patient is proactive in working on getting more involved in the community; discussed medication management for depression and reviewed risks/side effects of various options; she will consider increasing Wellbutrin to address her continued depression.? Lexapro remains causing diaphoretic side effects so will not increase this higher; also likely as it is combined with lithium is worsening patient has chronic essential tremor. 09/15 patient expresses depression but feels safe; will reach out for help if feels on low otherwise. Discussed medication management and how to address her psychiatric symptoms without aggravating side effects. Agreed to increase his and said he to 7.5 mg b.i.d. which is helped in the past; decided to do this instead of Wellbutrin for the moment since patient's hand tremor is bothering her. PLAN: INcREASED Zenzedi to 7.5mg bid to help with focus and combatting OCD symptoms which patient says has helped in the past -partial day program -continued medication management -CONTINUED on [place] 300mg; depression increase has resolved; (lowered dose to help w/ side-effects of shakiness, unsteady walking, some tiredness; the symptoms started after pt had been tolerating Lexapro 30 mg for a few weeks and before Wellbutrin was started and Lamictal still at a low dose); pt has hx of essential tremor which seems to have been worsened by lithium (which combined w/ SSRI increases tremor risk) -continue Lamictal 150mg (started this dose on 09/05); will switch to bedtime to see if helps lessen daytime tiredness -continue Lexapro 30 mg; seems to be helping although does cause diaphoresis, typical for her w/ ssri -Continue Wellbutrin xR 300mg -ativan prn Certification I certify that partial hospital treatment is medically necessary due to the symptoms and problems resulting from the patient's mental illness and? the failure to treat the patient at the partial hospital level of care would likely result in the patient requiring inpatient psychiatric care which could not be prevented at a less intensive level of care. Certification I certify that partial hospital treatment is medically necessary due to the symptoms and problems resulting from the patient's mental illness and the failure to treat the patient at the partial hospital level of care would likely result in the patient requiring inpatient psychiatric care which could not be prevented at a less intensive level of care. I spent minutes with the patient and/or on the patient floor today, greater than?50% of which was spent counseling/coordinating care. Discharge Plan Discharge Attending provider: Nabeel Holland Primary Care Provider: Sinai Bowling Medications: New lithium carbonate 300 mg tablet extended release 300 mg PO BEDTIME 30 Days Qty: 30 RF: 0 lamotrigine [Lamictal] 150 mg tablet 150 mg PO DAILY 30 Days Qty: 30 RF: 0 Changed dextroamphetamine 5 mg tablet 7.5 mg PO BID 30 Days Qty: 90 RF: 0 No Action bupropion HCl 300 mg Tablet Extended Release 24 Hr 300 mg PO DAILY 30 Days Qty: 30 RF: 0 clonazepam 1 mg Tablet 1 mg PO DAILY PRN (Reason: severe anxiety) 30 Days Qty: 30 RF: 0 escitalopram oxalate 10 mg Tablet 30 mg PO DAILY 30 Days Qty: 90 RF: 0 hydroxyzine HCl 25 mg Tablet 25 mg PO BEDTIME PRN (Reason: congestion) 30 Days Qty: 30 RF: 0 lamotrigine 100 mg Tablet 100 mg PO DAILY 30 Days Qty: 30 RF: 0 lithium carbonate 450 mg Tablet Extended Release 450 mg PO BEDTIME 15 Days Qty: 15 RF: 1 melatonin 3 mg Tablet 3 mg PO BEDTIME PRN (Reason: Sleep) 30 Days Qty: 30 RF: 0 Patient Own Medication 1 ea PO DAILY Qty: 0 RF: 0 trazodone 50 mg tablet 100 mg PO BEDTIME PRN (Reason: insomnia) 30 Days Qty: 90 RF: 0 propranolol 10 mg tablet 10 mg PO BID PRN (Reason: Anxiety) 30 Days Qty: 60 RF: 0 lamotrigine [Lamictal] 25 mg tablet 25 mg PO DAILY 30 Days Qty: 30 RF: 0 Referrals: Sinai Bowling MD [Primary Care Provider] - 1 Week Stand Alone Forms: Patient Portal Discharge page Telehealth Telehealth Location of provider rendering services: practice address Location of patient: other (at friends house) Patient Identification confirmed using: Name, : Yes Telehealth method: video Time spent with patient (mins): 40
--- NOTE | 2021-09-19 16:08 | P.PNPSP_ITS ---
Subjective Subjective Date of Service: 09/19/21 Reason For Visit: MDD, recurrent, severe w/o Psychotic features Interim History: Patient reports that she is better. She says that she had actually had a good weekend spent time with a friend. She says that she was mostly able to pull her mind back from being obsessively worried about various things and said she exercised the muscle of not wearing. Patient appreciated increase in Dexedrine which he says was helpful, helped reduce daytime tiredness, helped to be more motivated and increased focus. She thinks it may also have helped a little bit in avoid the obsessional worries. Patient reports she continues to have tremor in her hands arms legs and her chin. She says even her breath comes up tremulous. She says it is really bothering her and wants to discuss reducing medications. Patient agrees to at 1st use propranolol to see if that helps mitigate this symptom; otherwise she feels ready to have a trial off lithium as she is only on 300 mg to see if this would resolve symptoms. Mental Status Exam Mental Status Exam Narrative: ?Pt is alert and oriented; behavior is cooperative; dressed in casual attire,?hair down; mood is described as better and affect congruent, calm; eye contact good; Speech is normal rate, prosody and volume; no psychomotor retardation?noted;? thought process is organized, linear and goal directed; thought content on treatment, past relationships; otherwise TC? pertinent to relevant topics and without any delusional content, paranoid ideations or grandiosity; no SI; no HI; No AVH and no evidence of perceptual disturbance. ?Patients insight and judgment are fair and adequate. Diagnostics Vital Signs (24Hr): BMI result Body Mass Index 22.6 Assessment & Plan Assessment & Plan (1) MDD (major depressive disorder), recurrent episode, severe: Status: Chronic Code(s): F33.2 - Major depressive disorder, recurrent severe without psychotic features (2) OCD (obsessive compulsive disorder): Status: Chronic Code(s): F42.9 - Obsessive-compulsive disorder, unspecified (3) ANANDA (generalized anxiety disorder): Status: Chronic Code(s): F41.1 - Generalized anxiety disorder (4) Chronic fatigue syndrome: Status: Acute Code(s): R53.82 - Chronic fatigue, unspecified (5) Fibromyalgia: Status: Acute Code(s): M79.7 - Fibromyalgia Assessment and Plan: Propranolol 10 mg t.i.d. p.r.n. for tremor; patient may take 20 mg if blood pre ssures are greater than 90/60. Patient's mood has improved; no SI or HI Certification I certify that partial hospital treatment is medically necessary due to the symptoms and problems resulting from the patient's mental illness and the failure to treat the patient at the partial hospital level of care would likely result in the patient requiring inpatient psychiatric care which could not be prevented at a less intensive level of care. I spent minutes with the patient and/or on the patient floor today, greater than?50% of which was spent counseling/coordinating care. Discharge Plan Discharge Attending provider: Nabeel Holland Primary Care Provider: Sinai Bowling Medications: New lithium carbonate 300 mg tablet extended release 300 mg PO BEDTIME 30 Days Qty: 30 RF: 0 lamotrigine [Lamictal] 150 mg tablet 150 mg PO DAILY 30 Days Qty: 30 RF: 0 Continued bupropion HCl 300 mg Tablet Extended Release 24 Hr 300 mg PO DAILY 30 Days Qty: 30 RF: 0 clonazepam 1 mg Tablet 1 mg PO DAILY PRN (Reason: severe anxiety) 30 Days Qty: 30 RF: 0 escitalopram oxalate 10 mg Tablet 30 mg PO DAILY 30 Days Qty: 90 RF: 0 hydroxyzine HCl 25 mg Tablet 25 mg PO BEDTIME PRN (Reason: congestion) 30 Days Qty: 30 RF: 0 melatonin 3 mg Tablet 3 mg PO BEDTIME PRN (Reason: Sleep) 30 Days Qty: 30 RF: 0 Patient Own Medication 1 ea PO DAILY Qty: 0 RF: 0 trazodone 50 mg tablet 100 mg PO BEDTIME PRN (Reason: insomnia) 30 Days Qty: 90 RF: 0 Changed dextroamphetamine 5 mg tablet 7.5 mg PO BID 30 Days Qty: 90 RF: 0 propranolol 10 mg tablet 10 mg PO TID PRN (Reason: tremor) 30 Days Qty: 90 RF: 0 Discontinued lamotrigine 100 mg Tablet 100 mg PO DAILY 30 Days Qty: 30 RF: 0 lithium carbonate 450 mg Tablet Extended Release 450 mg PO BEDTIME 15 Days Qty: 15 RF: 1 lamotrigine [Lamictal] 25 mg tablet 25 mg PO DAILY 30 Days Qty: 30 RF: 0 Referrals: Sinai Bowling MD [Primary Care Provider] - 1 Week Stand Alone Forms: Patient Portal Discharge page Telehealth Telehealth Location of provider rendering services: practice address Location of patient: other (friends) Patient Identification confirmed using: Name, : Yes Telehealth method: video Patient verbally consented to treatment: Yes Time spent with patient (mins): 30
--- NOTE | 2021-09-22 13:54 | HO.PHPPROGNO ---
Subjective Subjective Date of Service: 09/22/21 Reason For Visit: MDD, recurrent, severe w/o Psychotic features Interim History: Reports that she went off the lithium which was 1 of the options in order to see if tremor resolved. She has been off it for 2 days now and she still has a tremor of chin, arms/legs; she also says that sometimes her breath comes out in staccato type way. Patient understands that it may take longer for her being off lithium to see if discontinuing this medication is helpful in reducing tremor. Patient says that her mood is overall okay. She feels a little more down then last week but still feels safe and stable. Patient also reports that OCD while at remains is overall not so bad and she remains able to use coping tools to distract her from ruminating. Mental Status Exam Mental Status Exam Narrative: Pt is alert and oriented; behavior is cooperative; dressed in casual attire,?hair down; mood is described as ok and affect congruent, calm; eye contact good; Speech is normal rate, prosody and volume; no psychomotor retardation?noted;? thought process is organized, linear and goal directed; thought content on treatment, past relationships; otherwise TC? pertinent to relevant topics and without any delusional content, paranoid ideations or grandiosity; no SI; no HI; No AVH and no evidence of perceptual disturbance. ?Patients insight and judgment are fair and adequate. Diagnostics Vital Signs (24Hr): BMI result Body Mass Index 22.6 Assessment & Plan Assessment & Plan (1) MDD (major depressive disorder), recurrent episode, severe: Status: Chronic Code(s): F33.2 - Major depressive disorder, recurrent severe without psychotic features (2) OCD (obsessive compulsive disorder): Status: Chronic Code(s): F42.9 - Obsessive-compulsive disorder, unspecified (3) ANANDA (generalized anxiety disorder): Status: Chronic Code(s): F41.1 - Generalized anxiety disorder (4) Chronic fatigue syndrome: Status: Acute Code(s): R53.82 - Chronic fatigue, unspecified (5) Fibromyalgia: Status: Acute Code(s): M79.7 - Fibromyalgia Assessment and Plan: IMPRESSION: Patient is a 46-year-old intelligent, self aware and resilient female with history of depression, generalized anxiety disorder, OCD, fibromyalgia and chronic fatigue syndrome who now presents to [facility] following discharge from inpatient psychiatric unit after a month long visit.? Patient was initially admitted to [facility] inpatient unit for severe depression with SI and severe anxiety/OCD symptoms.? Patient was eventually started on Lexapro and Lamictal; she was also started on lithium to see if it could be helpful while waiting for to Lamictal to become therapeutic.? Patient experienced many side effects; she had a history of being hypersensitive to medications and it was difficult to assess whether side effects type symptoms were due to medication or due to her anxiety.? While lithium did seem to help reduce suicidality, it produced side effects of tremor, some ataxia, daytime sedation and this medication was tapered down; it was left at a lower dose of 450 mg however to see if on a lower dose a could still be helpful without side effects.? Patient was also started on Wellbutrin since it had been helpful in the past.? Over time, her SI fully resolved, depression got better and anxiety under better control.? She felt ready for discharge and agreed to go to [facility] for continued outpatient therapy and medication management.? Patient reports that she remains depressed and anxious but it is still significantly reduced and tolerable.? Patient says that she occasionally has intermittent passive SI but never any plans or intentions and is able to ignore it.? She continues to ruminate on various things but less so and is having some increased success in her ability to use coping strategies to limit hyper focusing on an anxious worry.? -will continue to engage in medication management to further reduce depression/anxiety -breast tenderness resolved 09/05 increased depression since lowering lithium to 300 mg on 08/31; increased intensity in SI though it still remains passive.? Patient does not want a risk return to her recent severe depression and wants to go up on lithium back to 450 mg and into or side effects. -will continue to titrate Lamictal and hopefully Wellbutrin which may lower patient's need for lithium 09/07:? Depression seems to have resolved; patient decided to remain on 300 mg after all.? Patient utilizing coping skills and able to disengage from some of her obsessive thinking.? Feels that partial hospitalization is helping.? Still has hand tremor, however shakiness in legs remains better and only a minor irritant; still has daytime tiredness. 09/09 patient says mood is a little better though she still depressed and anxious.? Denies SI.? Patient feels that her worries are a little less overwhelming and she is able to stop them from taking over, now better able to distract herself.? Patient stop taking clonazepam and melatonin and says she did sleep well enough and is perhaps a little less tired during the day.? Medication management remains challenging as patient has side effects from lithium and escitalopram, including a side effect from the combination being increased tremor; history of tinnitus from increased dose of Wellbutrin although she did tolerate Wellbutrin for quite a while without tinnitus.? Patient has chronic fatigue, essential tremor and fibromyalgia also complicate whether not patient is experiencing medication side effects or symptoms are from organic etiology 09/13 remains stable; some passive SI but patient says she feels safe and has no intent or plans; patient is proactive in working on getting more involved in the community; discussed medication management for depression and reviewed risks/side effects of various options; she will consider increasing Wellbutrin to address her continued depression.? Lexapro remains causing diaphoretic side effects so will not increase this higher; also likely as it is combined with lithium is worsening patient has chronic essential tremor. 09/15 patient expresses depression but feels safe; will reach out for help if feels on low otherwise.? Discussed medication management and how to address her psychiatric symptoms without aggravating side effects.? Agreed to increase his and said he to 7.5 mg b.i.d. which is helped in the past; decided to do this instead of Wellbutrin for the moment since patient's hand tremor is bothering her. 09/19 propranol for tremor; or dc lithium 09/22 dc'd lithium; mood stable, but tremor remains; will continue off it for now and montior both mood and tremor. No SI PLAN: cpmtomie Zenzedi to 7.5mg bid to help with focus and combatting OCD symptoms which patient says has helped in the past -partial day program -continued medication management -DC [place] 300mg for now (last dose 09/19) to see if mood stays stable and tremor resolves (shakiness/tremor started after pt had been tolerating Lexapro 30 mg for a few weeks and before Wellbutrin was started and Lamictal still at a low dose); pt has hx of essential tremor which seems to have been worsened by lithium (which combined w/ SSRI increases tremor risk) -continue Lamictal 150mg (started this dose on 09/05); will switch to bedtime to see if helps lessen daytime tiredness -continue Lexapro 30 mg; seems to be helping although does cause diaphoresis, typical for her w/ ssri -Continue Wellbutrin xR 300mg -ativan prn Certification I certify that partial hospital treatment is medically necessary due to the symptoms and problems resulting from the patient's mental illness and the failure to treat the patient at the partial hospital level of care would likely result in the patient requiring inpatient psychiatric care which could not be prevented at a less intensive level of care. I spent minutes with the patient and/or on the patient floor today, greater than?50% of which was spent counseling/coordinating care. Discharge Plan Discharge Attending provider: Nabeel Holland Primary Care Provider: Sinai Bowling Medications: New lithium carbonate 300 mg tablet extended release 300 mg PO BEDTIME 30 Days Qty: 30 RF: 0 lamotrigine [Lamictal] 150 mg tablet 150 mg PO DAILY 30 Days Qty: 30 RF: 0 Continued clonazepam 1 mg Tablet 1 mg PO DAILY PRN (Reason: severe anxiety) 30 Days Qty: 30 RF: 0 hydroxyzine HCl 25 mg Tablet 25 mg PO BEDTIME PRN (Reason: congestion) 30 Days Qty: 30 RF: 0 melatonin 3 mg Tablet 3 mg PO BEDTIME PRN (Reason: Sleep) 30 Days Qty: 30 RF: 0 Patient Own Medication 1 ea PO DAILY Qty: 0 RF: 0 trazodone 50 mg tablet 100 mg PO BEDTIME PRN (Reason: insomnia) 30 Days Qty: 90 RF: 0 escitalopram oxalate 10 mg Tablet 30 mg PO DAILY 30 Days Qty: 90 RF: 0 bupropion HCl 300 mg Tablet Extended Release 24 Hr 300 mg PO DAILY 30 Days Qty: 30 RF: 1 Changed dextroamphetamine 5 mg tablet 7.5 mg PO BID 30 Days Qty: 90 RF: 0 propranolol 10 mg tablet 10 mg PO TID PRN (Reason: tremor) 30 Days Qty: 90 RF: 0 Discontinued lamotrigine 100 mg Tablet 100 mg PO DAILY 30 Days Qty: 30 RF: 0 lithium carbonate 450 mg Tablet Extended Release 450 mg PO BEDTIME 15 Days Qty: 15 RF: 1 lamotrigine [Lamictal] 25 mg tablet 25 mg PO DAILY 30 Days Qty: 30 RF: 0 Referrals: Sinai Bowling MD [Primary Care Provider] - 1 Week Stand Alone Forms: Patient Portal Discharge page Telehealth Telehealth Location of provider rendering services: practice address Location of patient: other (at friends) Patient Identification confirmed using: Name, : Yes Telehealth method: video Patient verbally consented to treatment: Yes Time spent with patient (mins): 40
--- NOTE | 2021-09-27 13:47 | HO.PHPPROGNO ---
Subjective Subjective Date of Service: 09/27/21 Reason For Visit: MDD, recurrent, severe w/o Psychotic features Interim History: Patient reports that she has been feeling a little more down because due to increased COVID incidence rates, she has been able to play pickleball. She is debating whether not to return home. She denies any SI. Shakiness is down since coming off lithium but still remains. Feels stable. Mental Status Exam Mental Status Exam Narrative: ?Pt is alert and oriented; behavior is cooperative; dressed in casual attire,?hair down; mood is described as a little more down and affect congruent, calm; eye contact good; Speech is normal rate, prosody and volume; no psychomotor retardation?noted;? thought process is organized, linear and goal directed; thought content on treatment, past relationships; otherwise TC? pertinent to relevant topics and without any delusional content, paranoid ideations or grandiosity; intermittent passive SI; no HI; No AVH and no evidence of perceptual disturbance. ?Patients insight and judgment are fair and adequate. Diagnostics Vital Signs (24Hr): BMI result Body Mass Index 22.6 Assessment & Plan Assessment & Plan (1) MDD (major depressive disorder), recurrent episode, severe: Status: Chronic Code(s): F33.2 - Major depressive disorder, recurrent severe without psychotic features (2) OCD (obsessive compulsive disorder): Status: Chronic Code(s): F42.9 - Obsessive-compulsive disorder, unspecified (3) ANANDA (generalized anxiety disorder): Status: Chronic Code(s): F41.1 - Generalized anxiety disorder (4) Chronic fatigue syndrome: Status: Acute Code(s): R53.82 - Chronic fatigue, unspecified (5) Fibromyalgia: Status: Acute Code(s): M79.7 - Fibromyalgia Assessment and Plan: Plan: Discontinued lithium; less shakiness but still remains Will continue other medications at same doses Patient will continue to monitor herself for depression and anxiety; no SI and currently stable Certification I certify that partial hospital treatment is medically necessary due to the symptoms and problems resulting from the patient's mental illness and the failure to treat the patient at the partial hospital level of care would likely result in the patient requiring inpatient psychiatric care which could not be prevented at a less intensive level of care. I spent minutes with the patient and/or on the patient floor today, greater than?50% of which was spent counseling/coordinating care. Discharge Plan Discharge Attending provider: Nabeel Holland Primary Care Provider: Sinai Bowling Medications: New lithium carbonate 300 mg tablet extended release 300 mg PO BEDTIME 30 Days Qty: 30 RF: 0 lamotrigine [Lamictal] 150 mg tablet 150 mg PO DAILY 30 Days Qty: 30 RF: 0 Continued melatonin 3 mg Tablet 3 mg PO BEDTIME PRN (Reason: Sleep) 30 Days Qty: 30 RF: 0 Patient Own Medication 1 ea PO DAILY Qty: 0 RF: 0 trazodone 50 mg tablet 100 mg PO BEDTIME PRN (Reason: insomnia) 30 Days Qty: 90 RF: 0 escitalopram oxalate 10 mg Tablet 30 mg PO DAILY 30 Days Qty: 90 RF: 0 bupropion HCl 300 mg Tablet Extended Release 24 Hr 300 mg PO DAILY 30 Days Qty: 30 RF: 1 hydroxyzine HCl 25 mg Tablet 25 mg PO BEDTIME PRN (Reason: congestion) 30 Days Qty: 30 RF: 1 clonazepam 1 mg Tablet 1 mg PO DAILY PRN (Reason: severe anxiety) 30 Days Qty: 30 RF: 1 Changed dextroamphetamine 5 mg tablet 7.5 mg PO BID 30 Days Qty: 90 RF: 0 propranolol 10 mg tablet 10 mg PO TID PRN (Reason: tremor) 30 Days Qty: 90 RF: 0 Discontinued lamotrigine 100 mg Tablet 100 mg PO DAILY 30 Days Qty: 30 RF: 0 lithium carbonate 450 mg Tablet Extended Release 450 mg PO BEDTIME 15 Days Qty: 15 RF: 1 lamotrigine [Lamictal] 25 mg tablet 25 mg PO DAILY 30 Days Qty: 30 RF: 0 Referrals: Sinai Bowling MD [Primary Care Provider] - 1 Week Stand Alone Forms: Patient Portal Discharge page Telehealth Telehealth Location of provider rendering services: practice address Location of patient: other (friends) Telehealth method: video Patient verbally consented to treatment: Yes Time spent with patient (mins): 30
--- NOTE | 2021-09-30 15:17 | PC.NURSE ---
the client called after the first group and asked to leave for the day explaining that she feels distracted with the children home today. She states that she is safe and will be back Sunday.
--- NOTE | 2021-10-03 14:21 | HO.PHPPROGNO ---
Subjective Subjective Date of Service: 10/03/21 Reason For Visit: MDD, recurrent, severe w/o Psychotic features Interim History: Patient reports after discontinuing lithium that the shaking/tremor is significantly better.? However she says she is feeling a more sad and wonders if it is due to discontinuing lithium.? This was discussed and patient agreed that since she has recently moved back home by herself her anxiety has increased which could easily explain her dip in mood.? Patient noted that this morning she started to catastrophizing however caught herself doing it and was able to stop.? Despite her worries of whether or not this increased sadness could represent her heading back to a deep stated depression? she agrees that she is stable and without any SI other than fleeting intermittent passive SI.? 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 thought process is organized, linear and goal directed; thought content on treatment, past relationships; otherwise TC? pertinent to relevant topics and without any delusional content, paranoid ideations or grandiosity; intermittent passive SI; no HI; No AVH and no evidence of perceptual disturbance. ?Patients insight and judgment are fair and adequate. Diagnostics Vital Signs (24Hr): BMI result Body Mass Index 22.6 Assessment & Plan Assessment & Plan (1) MDD (major depressive disorder), recurrent episode, severe: Status: Chronic Code(s): F33.2 - Major depressive disorder, recurrent severe without psychotic features (2) OCD (obsessive compulsive disorder): Status: Chronic Code(s): F42.9 - Obsessive-compulsive disorder, unspecified (3) ANANDA (generalized anxiety disorder): Status: Chronic Code(s): F41.1 - Generalized anxiety disorder (4) Chronic fatigue syndrome: Status: Acute Code(s): R53.82 - Chronic fatigue, unspecified (5) Fibromyalgia: Status: Acute Code(s): M79.7 - Fibromyalgia Assessment and Plan: Plan: remain off lithium; patient agrees that dip in mood can very well be explained by moving back to her apartment and living by herself; she continues to be able to utilize coping skills to mitigate anxiety shakiness nearly resolved after dc'ing lithium Will continue other medications at same doses though increasing either Wellbutrin or Lamictal are considered Patient will continue to monitor herself for depression and anxiety; patient overall feels stable. She has intermittent SI but says it is passive and fleeting with no plans or intent and able to be ignored. Patient says she will reach out for help if she feels unsafe at any point Certification Certification I certify that partial hospital treatment is medically necessary due to the symptoms and problems resulting from the patient's mental illness and the failure to treat the patient at the partial hospital level of care would likely result in the patient requiring inpatient psychiatric care which could not be prevented at a less intensive level of care. I spent minutes with the patient and/or on the patient floor today, greater than?50% of which was spent counseling/coordinating care. Discharge Plan Discharge Attending provider: Nabeel Holland Primary Care Provider: Sinai Bowling Medications: New lithium carbonate 300 mg tablet extended release 300 mg PO BEDTIME 30 Days Qty: 30 RF: 0 lamotrigine [Lamictal] 150 mg tablet 150 mg PO DAILY 30 Days Qty: 30 RF: 0 Continued melatonin 3 mg Tablet 3 mg PO BEDTIME PRN (Reason: Sleep) 30 Days Qty: 30 RF: 0 Patient Own Medication 1 ea PO DAILY Qty: 0 RF: 0 trazodone 50 mg tablet 100 mg PO BEDTIME PRN (Reason: insomnia) 30 Days Qty: 90 RF: 0 escitalopram oxalate 10 mg Tablet 30 mg PO DAILY 30 Days Qty: 90 RF: 0 bupropion HCl 300 mg Tablet Extended Release 24 Hr 300 mg PO DAILY 30 Days Qty: 30 RF: 1 hydroxyzine HCl 25 mg Tablet 25 mg PO BEDTIME PRN (Reason: congestion) 30 Days Qty: 30 RF: 1 clonazepam 1 mg Tablet 1 mg PO DAILY PRN (Reason: severe anxiety) 30 Days Qty: 30 RF: 1 Changed dextroamphetamine 5 mg tablet 7.5 mg PO BID 30 Days Qty: 90 RF: 0 propranolol 10 mg tablet 10 mg PO TID PRN (Reason: tremor) 30 Days Qty: 90 RF: 0 Discontinued lamotrigine 100 mg Tablet 100 mg PO DAILY 30 Days Qty: 30 RF: 0 lithium carbonate 450 mg Tablet Extended Release 450 mg PO BEDTIME 15 Days Qty: 15 RF: 1 lamotrigine [Lamictal] 25 mg tablet 25 mg PO DAILY 30 Days Qty: 30 RF: 0 Referrals: Sinai Bowling MD [Primary Care Provider] - 1 Week Stand Alone Forms: Patient Portal Discharge page Telehealth Telehealth Location of provider rendering services: practice address Location of patient: address on file Patient Identification confirmed using: Name, : Yes Telehealth method: video Patient verbally consented to treatment: Yes
--- NOTE | 2021-10-10 13:11 | HO.PHPPROGNO ---
Diagnostics Vital Signs (24Hr): BMI result Body Mass Index 22.6 Assessment & Plan Assessment & Plan (1) MDD (major depressive disorder), recurrent episode, severe: Status: Chronic Code(s): F33.2 - Major depressive disorder, recurrent severe without psychotic features (2) OCD (obsessive compulsive disorder): Status: Chronic Code(s): F42.9 - Obsessive-compulsive disorder, unspecified (3) ANANDA (generalized anxiety disorder): Status: Chronic Code(s): F41.1 - Generalized anxiety disorder (4) Chronic fatigue syndrome: Status: Acute Code(s): R53.82 - Chronic fatigue, unspecified Plan Plan: remain off lithium; patient agrees that dip in mood can very well be explained by moving back to her apartment and living by herself; she continues to be able to utilize coping skills to mitigate anxiety shakiness nearly resolved after dc'ing lithium Will continue other medications at same doses though increasing either Wellbutrin or Lamictal are considered Patient will continue to monitor herself for depression and anxiety; patient overall feels stable. She has intermittent SI but says it is passive and fleeting with no plans or intent and able to be ignored. Patient says she will reach out for help if she feels unsafe at any point Patient educated on: diagnosis, medication risk/benefits and therapeutic strategies Informed Consent: understands Reason for contiued partial hosp. stay Substantial Risk for: other (stable) Certification I certify that partial hospital treatment is medically necessary due to the symptoms and problems resulting from the patient's mental illness and the failure to treat the patient at the partial hospital level of care would likely result in the patient requiring inpatient psychiatric care which could not be prevented at a less intensive level of care. I spent minutes with the patient and/or on the patient floor today, greater than?50% of which was spent counseling/coordinating care. Discharge Plan Discharge Attending provider: Nabeel Holland Primary Care Provider: Sinai Bowling Additional Instructions: Psychiatric provider Dr. Reyes Hamida Calixto [facility] 10/19/21 Medications: Continued melatonin 3 mg Tablet 3 mg PO BEDTIME PRN (Reason: Sleep) 30 Days Qty: 30 0RF Patient Own Medication 1 ea PO DAILY Qty: 0 0RF escitalopram oxalate 10 mg Tablet 30 mg PO DAILY 30 Days Qty: 90 1RF bupropion HCl 300 mg Tablet Extended Release 24 Hr 300 mg PO DAILY 30 Days Qty: 30 2RF lamotrigine [Lamictal] 150 mg tablet 150 mg PO BEDTIME 30 Days Qty: 30 0RF Rx Instructions: take 150mg tab with 25mg tab lamotrigine [Lamictal] 25 mg tablet 25 mg PO BEDTIME 30 Days Qty: 30 0RF Rx Instructions: take 150mg tab with 25mg tab Changed propranolol 10 mg tablet 20 mg PO BID PRN (Reason: tremor) 30 Days Qty: 120 0RF trazodone 50 mg tablet 50 mg PO BEDTIME PRN (Reason: insomnia) 30 Days Qty: 30 1RF Discontinued clonazepam 1 mg Tablet 1 mg PO DAILY PRN (Reason: severe anxiety) 30 Days Qty: 30 0RF hydroxyzine HCl 25 mg Tablet 25 mg PO BEDTIME PRN (Reason: congestion) 30 Days Qty: 30 0RF lamotrigine 100 mg Tablet 100 mg PO DAILY 30 Days Qty: 30 0RF Rx Instructions: take with 25mg tab for total of 125mg daily lithium carbonate 450 mg Tablet Extended Release 450 mg PO BEDTIME 15 Days Qty: 15 1RF dextroamphetamine sulfate 5 mg tablet 7.5 mg PO QAM 30 Days Qty: 45 0RF lamotrigine [Lamictal] 25 mg tablet 25 mg PO DAILY 30 Days Qty: 30 0RF Rx Instructions: take with 100mg tab for total of 125mg daily No Action dextroamphetamine sulfate 10 mg tablet 10 mg PO DAILY clonazepam 1 mg tablet 0.25 mg PO DAILY PRN (Reason: severe anxiety) Referrals: Sinai Bowling MD [Primary Care Provider] - 1 Week Stand Alone Forms: Patient Portal Discharge page Print Language: Grenadian
--- NOTE | 2021-10-13 13:00 | PC.NURSE ---
Patient scheduled to discharge today. Dr. Bansal is aware and updated her discharge medication information. Reviewed patient medications with patient and patient reports taking her medications as prescribed. Stated she felt OK regarding discharge having her usual mixed feelings. Denied SI or thoughts to harm herself, no safety concerns.
--- NOTE | 2021-10-14 08:17 | PC.NURSE ---
message left for Julian Calixto [facility] re clients dc
--- NOTE | 2021-10-20 17:39 | PM.EVENT ---
Event Note Date of Service: 10/20/21 Event Note: Briefly talked with patient on the phone who reports that she is feeling stable and better able to manage her thoughts. She reports barely checking the stove and that thoughts are overall less problematic. Patient continues to have tremor however it seems to be overall better. There also numerous times of the day that she does not notice any tremor. She reports night sweats last night and wonders if it is the SSRI or menopause. Currently patient would like to remain with current treatment regimen and see how things go with the option of potentially lowering Lexapro or switching back to Cymbalta if side effects remain troublesome.
--- NOTE | 2021-11-09 09:12 | HO.OPPROGNO ---
Subjective Subjective Date of Service: 11/08/21 Reason For Visit: MDD, recurrent, severe w/o Psychotic features Interim History: late entry for 11/08/21 Discussed symptoms, therapeutic coping skills, medication management; remained stable Diagnostics Vital Signs (24Hr): BMI result Body Mass Index 22.6 Discharge Plan Discharge Attending provider: Nabeel Holland Primary Care Provider: Sinai Bowling Additional Instructions: Psychiatric provider Dr. Reyes, Hamida Calixto [facility] 10/19/21 Medications: Continued melatonin 3 mg Tablet 3 mg PO BEDTIME PRN (Reason: Sleep) 30 Days Qty: 30 0RF Patient Own Medication 1 ea PO DAILY Qty: 0 0RF escitalopram oxalate 10 mg Tablet 30 mg PO DAILY 30 Days Qty: 90 1RF bupropion HCl 300 mg Tablet Extended Release 24 Hr 300 mg PO DAILY 30 Days Qty: 30 2RF lamotrigine [Lamictal] 150 mg tablet 150 mg PO BEDTIME 30 Days Qty: 30 0RF Rx Instructions: take 150mg tab with 25mg tab lamotrigine [Lamictal] 25 mg tablet 25 mg PO BEDTIME 30 Days Qty: 30 0RF Rx Instructions: take 150mg tab with 25mg tab Changed propranolol 10 mg tablet 20 mg PO BID PRN (Reason: tremor) 30 Days Qty: 120 0RF trazodone 50 mg tablet 50 mg PO BEDTIME PRN (Reason: insomnia) 30 Days Qty: 30 1RF Discontinued clonazepam 1 mg Tablet 1 mg PO DAILY PRN (Reason: severe anxiety) 30 Days Qty: 30 0RF hydroxyzine HCl 25 mg Tablet 25 mg PO BEDTIME PRN (Reason: congestion) 30 Days Qty: 30 0RF lamotrigine 100 mg Tablet 100 mg PO DAILY 30 Days Qty: 30 0RF Rx Instructions: take with 25mg tab for total of 125mg daily lithium carbonate 450 mg Tablet Extended Release 450 mg PO BEDTIME 15 Days Qty: 15 1RF dextroamphetamine sulfate 5 mg tablet 7.5 mg PO QAM 30 Days Qty: 45 0RF lamotrigine [Lamictal] 25 mg tablet 25 mg PO DAILY 30 Days Qty: 30 0RF Rx Instructions: take with 100mg tab for total of 125mg daily No Action dextroamphetamine sulfate 10 mg tablet 10 mg PO DAILY clonazepam 1 mg tablet 0.25 mg PO DAILY PRN (Reason: severe anxiety) Referrals: Sinai Bowling MD [Primary Care Provider] - 1 Week Stand Alone Forms: Patient Portal Discharge page Print Language: Palauan Telehealth Telehealth Location of provider rendering services: practice address Location of patient: other Patient Identification confirmed using: Name, : Yes Telehealth method: voice only Patient verbally consented to treatment: Yes Patient verbally consented to billing insurance company: No Time spent with patient (mins): 30 Assessment & Plan Assessment & Plan (1) MDD (major depressive disorder), recurrent episode, severe: Status: Chronic Code(s): F33.2 - Major depressive disorder, recurrent severe without psychotic features (2) OCD (obsessive compulsive disorder): Status: Chronic Code(s): F42.9 - Obsessive-compulsive disorder, unspecified (3) ANANDA (generalized anxiety disorder): Status: Chronic Code(s): F41.1 - Generalized anxiety disorder (4) Chronic fatigue syndrome: Status: Acute Code(s): R53.82 - Chronic fatigue, unspecified Plan Continue treatment plan Patient educated on: diagnosis, medication risk/benefits and therapeutic strategies Informed Consent: does not understand Reason for contiued therapy Substantial Risk for: other (stable) I spent minutes with the patient and/or on the patient floor today, greater than?50% of which was spent counseling/coordinating care.
--- NOTE | 2021-11-15 13:07 | HO.OPPROGNO ---
Subjective Subjective Date of Service: 11/15/21 Reason For Visit: MDD, recurrent, severe w/o Psychotic features Interim History: Discussed symptoms, therapeutic coping skills, medication management; patient remains stable Diagnostics Vital Signs (24Hr): BMI result Body Mass Index 22.6 Discharge Plan Discharge Attending provider: Nabeel Holland Primary Care Provider: Sinai Bowling Additional Instructions: Psychiatric provider Dr. Reyes, [facility] Julian Calixto [facility] 10/19/21 Medications: Continued melatonin 3 mg Tablet 3 mg PO BEDTIME PRN (Reason: Sleep) 30 Days Qty: 30 0RF Patient Own Medication 1 ea PO DAILY Qty: 0 0RF escitalopram oxalate 10 mg Tablet 30 mg PO DAILY 30 Days Qty: 90 1RF bupropion HCl 300 mg Tablet Extended Release 24 Hr 300 mg PO DAILY 30 Days Qty: 30 2RF lamotrigine [Lamictal] 150 mg tablet 150 mg PO BEDTIME 30 Days Qty: 30 0RF Rx Instructions: take 150mg tab with 25mg tab lamotrigine [Lamictal] 25 mg tablet 25 mg PO BEDTIME 30 Days Qty: 30 0RF Rx Instructions: take 150mg tab with 25mg tab Changed propranolol 10 mg tablet 20 mg PO BID PRN (Reason: tremor) 30 Days Qty: 120 0RF trazodone 50 mg tablet 50 mg PO BEDTIME PRN (Reason: insomnia) 30 Days Qty: 30 1RF Discontinued clonazepam 1 mg Tablet 1 mg PO DAILY PRN (Reason: severe anxiety) 30 Days Qty: 30 0RF hydroxyzine HCl 25 mg Tablet 25 mg PO BEDTIME PRN (Reason: congestion) 30 Days Qty: 30 0RF lamotrigine 100 mg Tablet 100 mg PO DAILY 30 Days Qty: 30 0RF Rx Instructions: take with 25mg tab for total of 125mg daily lithium carbonate 450 mg Tablet Extended Release 450 mg PO BEDTIME 15 Days Qty: 15 1RF dextroamphetamine sulfate 5 mg tablet 7.5 mg PO QAM 30 Days Qty: 45 0RF lamotrigine [Lamictal] 25 mg tablet 25 mg PO DAILY 30 Days Qty: 30 0RF Rx Instructions: take with 100mg tab for total of 125mg daily No Action dextroamphetamine sulfate 10 mg tablet 10 mg PO DAILY clonazepam 1 mg tablet 0.25 mg PO DAILY PRN (Reason: severe anxiety) Referrals: Sinai Bowling MD [Primary Care Provider] - 1 Week Stand Alone Forms: Patient Portal Discharge page Print Language: Japanese Assessment & Plan Assessment & Plan (1) MDD (major depressive disorder), recurrent episode, severe: Status: Chronic Code(s): F33.2 - Major depressive disorder, recurrent severe without psychotic features (2) OCD (obsessive compulsive disorder): Status: Chronic Code(s): F42.9 - Obsessive-compulsive disorder, unspecified (3) ANANDA (generalized anxiety disorder): Status: Chronic Code(s): F41.1 - Generalized anxiety disorder (4) Chronic fatigue syndrome: Status: Acute Code(s): R53.82 - Chronic fatigue, unspecified Plan Continue treatment plan Patient educated on: medication risk/benefits and therapeutic strategies Informed Consent: understands Reason for contiued therapy Substantial Risk for: other (Stable) I spent minutes with the patient and/or on the patient floor today, greater than?50% of which was spent counseling/coordinating care.
--- NOTE | 2021-11-25 13:14 | P.PNPSO_ITS ---
Subjective Subjective Date of Service: 11/25/21 Reason For Visit: MDD, recurrent, severe w/o Psychotic features Interim History: Discussed symptoms, therapeutic coping skills, medication management; patient remains stable Medication Compliance: Yes Diagnostics Vital Signs (24Hr): BMI result Body Mass Index 22.6 Discharge Plan Discharge Attending provider: Nabeel Holland Primary Care Provider: Sinai Bowling Additional Instructions: Psychiatric provider Dr. Reyes, Hamida Calixto [facility] 10/19/21 Medications: Continued melatonin 3 mg Tablet 3 mg PO BEDTIME PRN (Reason: Sleep) 30 Days Qty: 30 0RF Patient Own Medication 1 ea PO DAILY Qty: 0 0RF escitalopram oxalate 10 mg Tablet 30 mg PO DAILY 30 Days Qty: 90 1RF bupropion HCl 300 mg Tablet Extended Release 24 Hr 300 mg PO DAILY 30 Days Qty: 30 2RF lamotrigine [Lamictal] 150 mg tablet 150 mg PO BEDTIME 30 Days Qty: 30 0RF Rx Instructions: take 150mg tab with 25mg tab lamotrigine [Lamictal] 25 mg tablet 25 mg PO BEDTIME 30 Days Qty: 30 0RF Rx Instructions: take 150mg tab with 25mg tab Changed propranolol 10 mg tablet 20 mg PO BID PRN (Reason: tremor) 30 Days Qty: 120 0RF trazodone 50 mg tablet 50 mg PO BEDTIME PRN (Reason: insomnia) 30 Days Qty: 30 1RF Discontinued clonazepam 1 mg Tablet 1 mg PO DAILY PRN (Reason: severe anxiety) 30 Days Qty: 30 0RF hydroxyzine HCl 25 mg Tablet 25 mg PO BEDTIME PRN (Reason: congestion) 30 Days Qty: 30 0RF lamotrigine 100 mg Tablet 100 mg PO DAILY 30 Days Qty: 30 0RF Rx Instructions: take with 25mg tab for total of 125mg daily lithium carbonate 450 mg Tablet Extended Release 450 mg PO BEDTIME 15 Days Qty: 15 1RF dextroamphetamine sulfate 5 mg tablet 7.5 mg PO QAM 30 Days Qty: 45 0RF lamotrigine [Lamictal] 25 mg tablet 25 mg PO DAILY 30 Days Qty: 30 0RF Rx Instructions: take with 100mg tab for total of 125mg daily No Action dextroamphetamine sulfate 10 mg tablet 10 mg PO DAILY clonazepam 1 mg tablet 0.25 mg PO DAILY PRN (Reason: severe anxiety) Referrals: Sinai Bowling MD [Primary Care Provider] - 1 Week Stand Alone Forms: Patient Portal Discharge page Print Language: Sierra Leonean Assessment & Plan Assessment & Plan (1) MDD (major depressive disorder), recurrent episode, severe: Status: Chronic Code(s): F33.2 - Major depressive disorder, recurrent severe without psychotic features (2) OCD (obsessive compulsive disorder): Status: Chronic Code(s): F42.9 - Obsessive-compulsive disorder, unspecified (3) ANANDA (generalized anxiety disorder): Status: Chronic Code(s): F41.1 - Generalized anxiety disorder (4) Chronic fatigue syndrome: Status: Acute Code(s): R53.82 - Chronic fatigue, unspecified Plan Discussed symptoms, therapeutic coping skills, medication management; patient remains stable Continue treatment plan Patient agrees to reach out for help if she at any time feels unsafe Patient educated on: diagnosis, medication risk/benefits and therapeutic strategies Informed Consent: understands Reason for contiued therapy Substantial Risk for: other (Stable) I spent minutes with the patient and/or on the patient floor today, greater than?50% of which was spent counseling/coordinating care.
--- NOTE | 2021-11-29 13:12 | HO.OPPROGNO ---
Subjective Subjective Date of Service: 11/29/21 Reason For Visit: MDD, recurrent, severe w/o Psychotic features Interim History: feeling a little better; received communication back from [facility] which was positive, warm and endearing. Started Lamictal 175mg daily, wanting to hold off from going to 200mg. noticed some intermittent experiences of vertigo, that lasted for a couple of seconds; she'll monitor to see if returns. still tremor, b/l hands, legs...discussed going down on Lexapro vs propranolol (again, has hx of essential tremor); she will try the propranolol however less diaphoresis; Discussed symptoms, therapeutic coping skills, medication management; patient remains stable Diagnostics Vital Signs (24Hr): BMI result Body Mass Index 22.6 Discharge Plan Discharge Attending provider: Nabeel Holland Primary Care Provider: Sinai Bowling Additional Instructions: Psychiatric provider Dr. Reyes, Hamida Calixto [facility] 10/19/21 Medications: Continued melatonin 3 mg Tablet 3 mg PO BEDTIME PRN (Reason: Sleep) 30 Days Qty: 30 0RF Patient Own Medication 1 ea PO DAILY Qty: 0 0RF escitalopram oxalate 10 mg Tablet 30 mg PO DAILY 30 Days Qty: 90 1RF bupropion HCl 300 mg Tablet Extended Release 24 Hr 300 mg PO DAILY 30 Days Qty: 30 2RF lamotrigine [Lamictal] 150 mg tablet 150 mg PO BEDTIME 30 Days Qty: 30 0RF Rx Instructions: take 150mg tab with 25mg tab lamotrigine [Lamictal] 25 mg tablet 25 mg PO BEDTIME 30 Days Qty: 30 0RF Rx Instructions: take 150mg tab with 25mg tab Changed propranolol 10 mg tablet 20 mg PO BID PRN (Reason: tremor) 30 Days Qty: 120 0RF trazodone 50 mg tablet 50 mg PO BEDTIME PRN (Reason: insomnia) 30 Days Qty: 30 1RF Discontinued clonazepam 1 mg Tablet 1 mg PO DAILY PRN (Reason: severe anxiety) 30 Days Qty: 30 0RF hydroxyzine HCl 25 mg Tablet 25 mg PO BEDTIME PRN (Reason: congestion) 30 Days Qty: 30 0RF lamotrigine 100 mg Tablet 100 mg PO DAILY 30 Days Qty: 30 0RF Rx Instructions: take with 25mg tab for total of 125mg daily lithium carbonate 450 mg Tablet Extended Release 450 mg PO BEDTIME 15 Days Qty: 15 1RF dextroamphetamine sulfate 5 mg tablet 7.5 mg PO QAM 30 Days Qty: 45 0RF lamotrigine [Lamictal] 25 mg tablet 25 mg PO DAILY 30 Days Qty: 30 0RF Rx Instructions: take with 100mg tab for total of 125mg daily No Action dextroamphetamine sulfate 10 mg tablet 10 mg PO DAILY clonazepam 1 mg tablet 0.25 mg PO DAILY PRN (Reason: severe anxiety) Referrals: Sinai Bowling MD [Primary Care Provider] - 1 Week Stand Alone Forms: Patient Portal Discharge page Print Language: Azeri Assessment & Plan Assessment & Plan (1) MDD (major depressive disorder), recurrent episode, severe: Status: Chronic Code(s): F33.2 - Major depressive disorder, recurrent severe without psychotic features (2) OCD (obsessive compulsive disorder): Status: Chronic Code(s): F42.9 - Obsessive-compulsive disorder, unspecified (3) ANANDA (generalized anxiety disorder): Status: Chronic Code(s): F41.1 - Generalized anxiety disorder (4) Chronic fatigue syndrome: Status: Acute Code(s): R53.82 - Chronic fatigue, unspecified Plan plan: Started Lamictal 175mg daily, wanting to hold off from going to 200mg. noticed some intermittent experiences of vertigo, that lasted for a couple of seconds; she'll monitor to see if returns. still tremor, b/l hands, legs...discussed going down on Lexapro vs propranolol (again, has hx of essential tremor); she will try the propranolol however less diaphoresis; Patient agrees to reach out for help if at any time feels unsafe Patient educated on: diagnosis, medication risk/benefits and therapeutic strategies Informed Consent: understands Reason for contiued therapy Substantial Risk for: other (stable) I spent minutes with the patient and/or on the patient floor today, greater than?50% of which was spent counseling/coordinating care.
--- NOTE | 2021-12-06 13:52 | P.PNPSO_ITS ---
Subjective Subjective Date of Service: 12/06/21 Reason For Visit: MDD, recurrent, severe w/o Psychotic features Interim History: Patient reports that she has doing better. Not tearful, mood better less ruminative. She shared that she has but reminders on her phone that pop up with helpful sayings she has accumulated such as rumination has never helped you... Which has been helping. Patient started her job at [employer] which she is both anxious and excited about. Patient reports that hand tremor remains very bothersome. She agrees to lower Lexapro to 25 mg to see if this helps resolve. Review of Systems Acute medical concerns: No Mental Status Exam Mental Status Exam Narrative: Pt is alert and oriented; identified herself with 2 forms of ID behavior is cooperative; mood is described as better Speech is normal rate, prosody and volume thought process is organized, linear and goal directed thought content on treatment, WNL (and pertinent to relevant topics; no delusional content, paranoid ideations or grandiosity); denies SI/HI Perception: intact; no AVH Patients insight and judgment are good Diagnostics Vital Signs (24Hr): BMI result Body Mass Index 22.6 Discharge Plan Discharge Attending provider: Nabeel Holland Primary Care Provider: Sinai Bowling Additional Instructions: Dr Tyler Garner MD, , Julian Calixto [facility] 10/19/21 Medications: Continued melatonin 3 mg Tablet 3 mg PO BEDTIME PRN (Reason: Sleep) 30 Days Qty: 30 0RF Patient Own Medication 1 ea PO DAILY Qty: 0 0RF trazodone 50 mg tablet 100 mg PO BEDTIME PRN (Reason: insomnia) 30 Days Qty: 90 0RF Rx Instructions: Take 2 - 3 tabs at bedtime as needed for insomnia hydroxyzine HCl 25 mg Tablet 25 mg PO BEDTIME PRN (Reason: congestion) 30 Days Qty: 30 1RF clonazepam 1 mg Tablet 1 mg PO DAILY PRN (Reason: severe anxiety) 30 Days Qty: 30 1RF escitalopram oxalate 10 mg Tablet 30 mg PO DAILY 30 Days Qty: 90 1RF bupropion HCl 300 mg Tablet Extended Release 24 Hr 300 mg PO DAILY 30 Days Qty: 30 2RF Changed propranolol 10 mg tablet 10 mg PO TID PRN (Reason: tremor) 30 Days Qty: 90 0RF dextroamphetamine 5 mg tablet 15 mg PO DAILY 30 Days Qty: 90 0RF Rx Instructions: take 3 tabs together once a day lamotrigine 200 mg tablet 200 mg PO DAILY 30 Days Qty: 30 0RF Discontinued lamotrigine 100 mg Tablet 100 mg PO DAILY 30 Days Qty: 30 0RF Rx Instructions: take with 25mg tab for total of 125mg daily lithium carbonate 450 mg Tablet Extended Release 450 mg PO BEDTIME 15 Days Qty: 15 1RF lamotrigine [Lamictal] 25 mg tablet 25 mg PO DAILY 30 Days Qty: 30 0RF Rx Instructions: take with 100mg tab for total of 125mg daily Referrals: Sinai Bowling MD [Primary Care Provider] - 1 Week Stand Alone Forms: Patient Portal Discharge page Telehealth Telehealth Location of provider rendering services: practice address Location of patient: address on file Patient Identification confirmed using: Name, : Yes Telehealth method: voice only Patient verbally consented to treatment: Yes Patient verbally consented to billing insurance company: No Time spent with patient (mins): 25 Assessment & Plan Assessment & Plan (1) OCD (obsessive compulsive disorder): Status: Chronic Code(s): F42.9 - Obsessive-compulsive disorder, unspecified (2) MDD (major depressive disorder), recurrent episode, severe: Status: Chronic Code(s): F33.2 - Major depressive disorder, recurrent severe without psychotic features (3) ANANDA (generalized anxiety disorder): Status: Chronic Code(s): F41.1 - Generalized anxiety disorder (4) Chronic fatigue syndrome: Status: Acute Code(s): R53.82 - Chronic fatigue, unspecified (5) Fibromyalgia: Status: Acute Code(s): M79.7 - Fibromyalgia Plan Patient reports she is doing better; Mood better, less obsessive thinking, no SI Has started a job at [employer] Reports that bilateral hand tremor has become almost intolerable and wants to try and lower Lexapro (during hospitalization tremor seems to have been associated with Lexapro titration); propranolol helps some, but tremor remains bothersome Plan: Patient will lower Lexapro to 25 mg, down from 30 mg daily Continue with Lamictal 175 mg Otherwise continue with home medications I spent minutes with the patient and/or on the patient floor today, greater than?50% of which was spent counseling/coordinating care.
--- NOTE | 2021-12-20 13:21 | HO.OPPROGNO ---
Subjective Subjective Date of Service: 12/20/21 Reason For Visit: MDD, recurrent, severe w/o Psychotic features Interim History: pt reports she is doing better; her mood is still depressed but not as much and she's able to work at her new job which she likes (works for [employer]). Pt still has obsessive thoughts but is able to focus on work when she needs to. thinks maybe tremor first started in 2009 when her Cymbalta was raised from 60mg to 90mg however she can't not fully remember. She is leaning toward thinking that the Lexapro is what's causing tremor now (rather than Wellbutrin or Lamictal) but is PCP started on Vienva, control to help mitigate mood dysregulation during menses. Discussed concluding phone therapy sessions; patient feels stable and agrees to conclude sessions; instead will now continue with outpt provider Diagnostics Vital Signs (24Hr): BMI result Body Mass Index 22.6 Discharge Plan Discharge Attending provider: Nabeel Holland Primary Care Provider: Sinai Bowling Additional Instructions: Psychiatric provider Dr. Reyes, Hamida Calixto [facility] 10/19/21 Medications: Continued melatonin 3 mg Tablet 3 mg PO BEDTIME PRN (Reason: Sleep) 30 Days Qty: 30 0RF Patient Own Medication 1 ea PO DAILY Qty: 0 0RF escitalopram oxalate 10 mg Tablet 30 mg PO DAILY 30 Days Qty: 90 1RF bupropion HCl 300 mg Tablet Extended Release 24 Hr 300 mg PO DAILY 30 Days Qty: 30 2RF lamotrigine [Lamictal] 150 mg tablet 150 mg PO BEDTIME 30 Days Qty: 30 0RF Rx Instructions: take 150mg tab with 25mg tab lamotrigine [Lamictal] 25 mg tablet 25 mg PO BEDTIME 30 Days Qty: 30 0RF Rx Instructions: take 150mg tab with 25mg tab Changed propranolol 10 mg tablet 20 mg PO BID PRN (Reason: tremor) 30 Days Qty: 120 0RF trazodone 50 mg tablet 50 mg PO BEDTIME PRN (Reason: insomnia) 30 Days Qty: 30 1RF Discontinued clonazepam 1 mg Tablet 1 mg PO DAILY PRN (Reason: severe anxiety) 30 Days Qty: 30 0RF hydroxyzine HCl 25 mg Tablet 25 mg PO BEDTIME PRN (Reason: congestion) 30 Days Qty: 30 0RF lamotrigine 100 mg Tablet 100 mg PO DAILY 30 Days Qty: 30 0RF Rx Instructions: take with 25mg tab for total of 125mg daily lithium carbonate 450 mg Tablet Extended Release 450 mg PO BEDTIME 15 Days Qty: 15 1RF dextroamphetamine sulfate 5 mg tablet 7.5 mg PO QAM 30 Days Qty: 45 0RF lamotrigine [Lamictal] 25 mg tablet 25 mg PO DAILY 30 Days Qty: 30 0RF Rx Instructions: take with 100mg tab for total of 125mg daily No Action dextroamphetamine sulfate 10 mg tablet 10 mg PO DAILY clonazepam 1 mg tablet 0.25 mg PO DAILY PRN (Reason: severe anxiety) Referrals: Sinai Bowling MD [Primary Care Provider] - 1 Week Stand Alone Forms: Patient Portal Discharge page Print Language: Kazakh Assessment & Plan Assessment & Plan (1) MDD (major depressive disorder), recurrent episode, severe: Status: Chronic Code(s): F33.2 - Major depressive disorder, recurrent severe without psychotic features (2) OCD (obsessive compulsive disorder): Status: Chronic Code(s): F42.9 - Obsessive-compulsive disorder, unspecified (3) ANANDA (generalized anxiety disorder): Status: Chronic Code(s): F41.1 - Generalized anxiety disorder (4) Chronic fatigue syndrome: Status: Acute Code(s): R53.82 - Chronic fatigue, unspecified Plan pt reports she is doing better; her mood is still depressed but not as much and she's able to work at her new job which she likes (works for [employer]). Pt still has obsessive thoughts but is able to focus on work when she needs to. thinks maybe tremor first started in 2009 when her Cymbalta was raised from 60mg to 90mg however she can't not fully remember. She is leaning toward thinking that the Lexapro is what's causing tremor now (rather than Wellbutrin or Lamictal). PCP started on Vienva, control to help mitigate mood dysregulation during menses. still tremor, b/l hands, legs...discussed going down on Lexapro vs propranolol (again, has hx of essential tremor); she will try the propranolol however less diaphoresis; plan: Lamictal 175mg daily, wanting to hold off from going to 200mg. Discussed concluding phone therapy sessions; patient feels stable and agrees to conclude sessions; instead will now continue with outpt provider Patient agrees to reach out for help if at any time feels unsafe Patient educated on: diagnosis, medication risk/benefits and therapeutic strategies Informed Consent: understands Reason for contiued therapy Substantial Risk for: other (stable) I spent minutes with the patient and/or on the patient floor today, greater than?50% of which was spent counseling/coordinating care.
--- NOTE | 2021-12-31 14:37 | P.PNPSO_ITS ---
Subjective Subjective Date of Service: 12/31/21 Reason For Visit: MDD, recurrent, severe w/o Psychotic features Interim History: Patient called and reported she is feeling more depressed and passive SI has come back a little; no plan or intent and patient feels safe. She notices this since she went down on the Lexapro however it does also coincide with getting her period and some other psychosocial stressors. Patient agrees to go back up on the Lexapro. Patient is transitioning to new psychiatrist Dr. Helen faria. They had discussed potentially considering a low-dose antipsychotic which patient brought up. 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 Loin Puller discussed risks/side effects including but not limited to tardive dyskinesia and galactorrhea and patient agrees to trial of Risperdal Diagnostics Vital Signs (24Hr): BMI result Body Mass Index 22.6 Discharge Plan Discharge Attending provider: Nabeel Holland Primary Care Provider: Sinai Bowling Additional Instructions: Dr Tyler Garner MD, , Julian Calixto [facility] 10/19/21 Medications: New lamotrigine [Lamictal] 150 mg tablet 150 mg PO BEDTIME 30 Days Qty: 30 0RF Rx Instructions: take 150mg tab with 25mg tab lamotrigine [Lamictal] 25 mg tablet 25 mg PO BEDTIME 30 Days Qty: 30 0RF Rx Instructions: take 150mg tab with 25mg tab risperidone [Risperdal] 0.5 mg tablet 0.5 mg PO BEDTIME 30 Days Qty: 30 0RF Continued melatonin 3 mg Tablet 3 mg PO BEDTIME PRN (Reason: Sleep) 30 Days Qty: 30 0RF Patient Own Medication 1 ea PO DAILY Qty: 0 0RF trazodone 50 mg tablet 100 mg PO BEDTIME PRN (Reason: insomnia) 30 Days Qty: 90 0RF Rx Instructions: Take 2 - 3 tabs at bedtime as needed for insomnia hydroxyzine HCl 25 mg Tablet 25 mg PO BEDTIME PRN (Reason: congestion) 30 Days Qty: 30 1RF clonazepam 1 mg Tablet 1 mg PO DAILY PRN (Reason: severe anxiety) 30 Days Qty: 30 1RF escitalopram oxalate 10 mg Tablet 30 mg PO DAILY 30 Days Qty: 90 1RF bupropion HCl 300 mg Tablet Extended Release 24 Hr 300 mg PO DAILY 30 Days Qty: 30 2RF Changed lamotrigine 200 mg tablet 200 mg PO DAILY 30 Days Qty: 30 0RF propranolol 10 mg tablet 20 mg PO BID PRN (Reason: tremor) 30 Days Qty: 120 0RF dextroamphetamine sulfate 5 mg tablet 15 mg PO DAILY 30 Days Qty: 90 0RF Rx Instructions: take 3 tabs together once a day Discontinued lamotrigine 100 mg Tablet 100 mg PO DAILY 30 Days Qty: 30 0RF Rx Instructions: take with 25mg tab for total of 125mg daily lithium carbonate 450 mg Tablet Extended Release 450 mg PO BEDTIME 15 Days Qty: 15 1RF lamotrigine [Lamictal] 25 mg tablet 25 mg PO DAILY 30 Days Qty: 30 0RF Rx Instructions: take with 100mg tab for total of 125mg daily Referrals: Sinai Bowling MD [Primary Care Provider] - 1 Week Stand Alone Forms: Patient Portal Discharge page Assessment & Plan Assessment & Plan (1) ANANDA (generalized anxiety disorder): Status: Chronic Code(s): F41.1 - Generalized anxiety disorder (2) OCD (obsessive compulsive disorder): Status: Chronic Code(s): F42.9 - Obsessive-compulsive disorder, unspecified (3) MDD (major depressive disorder), recurrent episode, severe: Status: Chronic Code(s): F33.2 - Major depressive disorder, recurrent severe without psychotic features (4) Fibromyalgia: Status: Acute Code(s): M79.7 - Fibromyalgia (5) Chronic fatigue syndrome: Status: Acute Code(s): R53.82 - Chronic fatigue, unspecified Plan hx ocd,depression,anxiety will add risperdal 0.5mg qhs Patient educated on: diagnosis and medication risk/benefits Informed Consent: understands I spent minutes with the patient and/or on the patient floor today, greater than?50% of which was spent counseling/coordinating care.
--- NOTE | 2022-01-03 13:41 | HO.OPPROGNO ---
Subjective Subjective Date of Service: 01/03/22 Reason For Visit: MDD, recurrent, severe w/o Psychotic features Interim History: Patient reports that she is feeling little better. No SI at all; she feels safe has always agrees to reach out to friends, providers or crisis if she felt otherwise. She went back to Lexapro 30 mg which she thinks is likely what it has improved her mood. She does notice that the tremor increased which is helpful in that it identifies Lexapro as what is been causing the tremor. She decided not to take the Risperdal since going up on Lexapro seem to improve her mood. Patient met with Dr. Reyes with whom she liked and wants to continue working. Patient asked for some refills. 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 Cares now transferred to Dr. Reyes Mental Status Exam Mental Status Exam Narrative: behavior is cooperative; mood is described as better Speech is normal rate, prosody and volume thought process is organized, linear and goal directed thought content on treatment, WNL (and pertinent to relevant topics; no delusional content, paranoid ideations or grandiosity); denies SI/HI Perception: intact; no AVH Patients insight and judgment are good Diagnostics Vital Signs (24Hr): BMI result Body Mass Index 22.6 Discharge Plan Discharge Attending provider: Nabeel Holland Primary Care Provider: Sinai Bowling Additional Instructions: Psychiatric provider Dr. Reyes, Hamida Calixto [facility] 10/19/21 Medications: New risperidone [Risperdal] 0.5 mg tablet 0.5 mg PO BEDTIME 30 Days Qty: 30 0RF Continued melatonin 3 mg Tablet 3 mg PO BEDTIME PRN (Reason: Sleep) 30 Days Qty: 30 0RF Patient Own Medication 1 ea PO DAILY Qty: 0 0RF hydroxyzine HCl 25 mg Tablet 25 mg PO BEDTIME PRN (Reason: congestion) 30 Days Qty: 30 1RF escitalopram oxalate 10 mg Tablet 30 mg PO DAILY 30 Days Qty: 90 1RF bupropion HCl 300 mg Tablet Extended Release 24 Hr 300 mg PO DAILY 30 Days Qty: 30 2RF lamotrigine [Lamictal] 150 mg tablet 150 mg PO BEDTIME 30 Days Qty: 30 0RF Rx Instructions: take 150mg tab with 25mg tab lamotrigine [Lamictal] 25 mg tablet 25 mg PO BEDTIME 30 Days Qty: 30 0RF Rx Instructions: take 150mg tab with 25mg tab Changed propranolol 10 mg tablet 20 mg PO BID PRN (Reason: tremor) 30 Days Qty: 120 0RF dextroamphetamine sulfate 5 mg tablet 15 mg PO DAILY 30 Days Qty: 90 0RF Rx Instructions: take 3 tabs together once a day trazodone 50 mg tablet 50 mg PO BEDTIME PRN (Reason: insomnia) 30 Days Qty: 30 1RF clonazepam 1 mg Tablet 0.5 mg PO DAILY PRN (Reason: severe anxiety) 30 Days Qty: 30 1RF Discontinued lamotrigine 100 mg Tablet 100 mg PO DAILY 30 Days Qty: 30 0RF Rx Instructions: take with 25mg tab for total of 125mg daily lithium carbonate 450 mg Tablet Extended Release 450 mg PO BEDTIME 15 Days Qty: 15 1RF lamotrigine [Lamictal] 25 mg tablet 25 mg PO DAILY 30 Days Qty: 30 0RF Rx Instructions: take with 100mg tab for total of 125mg daily Referrals: Sinai Bowling MD [Primary Care Provider] - 1 Week Stand Alone Forms: Patient Portal Discharge page Telehealth Telehealth Location of provider rendering services: practice address Location of patient: address on file Patient Identification confirmed using: Name, : Yes Telehealth method: voice only Patient verbally consented to treatment: Yes Patient verbally consented to billing insurance company: No Patient informed of any privacy concerns related to visit: No Minutes spent on Phone/Video with Pt.: 15 Assessment & Plan Assessment & Plan (1) ANANDA (generalized anxiety disorder): Status: Chronic Code(s): F41.1 - Generalized anxiety disorder (2) OCD (obsessive compulsive disorder): Status: Chronic Code(s): F42.9 - Obsessive-compulsive disorder, unspecified (3) MDD (major depressive disorder), recurrent episode, severe: Status: Chronic Code(s): F33.2 - Major depressive disorder, recurrent severe without psychotic features (4) Chronic fatigue syndrome: Status: Acute Code(s): R53.82 - Chronic fatigue, unspecified (5) Fibromyalgia: Status: Acute Code(s): M79.7 - Fibromyalgia Plan hx ocd,depression,anxiety Patient went up on Lexapro back to 30 mg; this increased tremor which identifies Lexapro is the halls of the side effect Patient reports that she is doing better, mood is better and no SI; feels good about transferring care to Dr. Reyes. 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
== END 2021-10-14 07:07 | disposition home or self-care (01) ==
LOC: HO.PHPA 09:30
PROVIDERS: PCP Family Medicine; Visit Provider Psychiatry & Neurology Psychiatry
DX: F33.2 Major depressive disorder, recurrent severe without psychotic features (principal); F42.9 Obsessive-compulsive disorder, unspecified; F41.1 Generalized anxiety disorder; R53.82 Chronic fatigue, unspecified; M79.7 Fibromyalgia
CPT/HCPCS: 90791; 90853

== ENCOUNTER → 2021-10-13 09:30 | Outpatient (BNV) | payer OTHER, SELFPAY | PROVIDERS: PCP Family Medicine; Visit Provider Psychiatry & Neurology Psychiatry | DX: F33.2 Major depressive disorder, recurrent severe without psychotic features (principal); F42.9 Obsessive-compulsive disorder, unspecified; F41.1 Generalized anxiety disorder; R53.82 Chronic fatigue, unspecified | CPT/HCPCS: 99499 ==

== ENCOUNTER → 2022-02-01 09:22 | Outpatient (BNVA) | payer MEDICAID, SELFPAY | PROVIDERS: PCP Family Medicine; Visit Provider Internal Medicine | DX: R53.82 Chronic fatigue, unspecified (principal); R42 Dizziness and giddiness | CPT/HCPCS: 93005; 99202 ==

== ENCOUNTER → 2022-04-05 08:30 | Outpatient (REF) | payer MEDICAID, SELFPAY ==
--- NOTE | 2022-04-05 08:33 | CA_ITS ---
Transthoracic Echocardiogram Patient (Last, First, Middle): Anna Walsh, Gender: Female Date of : 1975 Age: 47 Procedure Date: 04/05/2022 Procedure Type: Transthoracic Echocardiogram Location: OP Height: 154.94 cm Weight: 54.43 kg BSA: 1.52 m2 Heart Rate: bpm BP: 118 / 56 mmHg Preschool Assistant Teacher: Referring MD: Mars Angel MD Continuum Of Care Manager: Reggie Aldana MD Symptoms: R53.82 - Chronic fatigue, unspecified Study Quality: Good ECG Rhythm: Sinus Conclusions: - Normal study Findings Left Ventricle Normal left ventricular size, thickness, and systolic function. The visually estimated ejection fraction is between 60-65%. Spectral Doppler is indicative of a normal filling pattern. Right Ventricle Normal right ventricular cavity size and systolic function. Atria Both atria are normal in size. There is no evidence of interatrial shunt. Aortic Valve Normal aortic valve structure and function. There is no aortic valve stenosis. There is no aortic valve regurgitation. Mitral Valve Normal mitral valve structure and function. There is trace mitral valve regurgitation. There is no mitral valve stenosis. Pulmonic Valve The pulmonic valve is likely normal. Tricuspid Valve Normal tricuspid valve structure. There is trace tricuspid valve regurgitation. The right ventricular systolic pressure is normal. The right ventricular systolic pressure is 21 mmHg. Normal right atrial pressure. There is no evidence of pulmonary hypertension. Great Vessels All visible segments of the aorta are normal in size. The pulmonary artery was not well visualized. Venous The inferior vena cava is normal in size and collapses greater than 50% with inspiration. Pericardium/Pleural There is no evidence of pericardial effusion. Prior Study Comparison No prior study available for comparison. Measurements 2D Linear Measurements IVSd: 0.80 0.6-0.9/0.6-1.0 cm LVIDd: 4.64 3.9-5.3/4.2-5.9 cm LVIDd Index: 3.05 2.4-3.2/2.2-3.1 cm/m2 LVIDs: 2.85 2.0-3.6 cm LVPWd: 0.82 0.7-1.1 cm Ao Root: 2.70 2.1-3.5 cm LA Diam: 3.20 2.7-3.8/3.0-4.0 cm LAIDs Index: 2.11 1.5-2.3 cm/m2 LV Mass: 150.62 67-162/88-224 g LV Mass Index: 99.09 43-95/49-115 g/m2 LVOT Diam: 2.00 3.0+(-)1.3 cm Mitral Valve MV Pk E: 0.84 MV PK A: 0.72 MV Decel Time: 194.00 E/A: 1.20 E'Lateral: 14.00 E'Medial: 11.20 E/E' Med: 7.50 E/E' Lat: 6.00 PHT: 57.00 MVA PHT: 3.86 Decel Bracken: 4.31 Aortic Valve AoV Pk Paras: 1.46 AoV Mn Paras: 1.01 AoV VTI: 0.32 AoV Pk Grad: 9.00 Aov Mn Grad: 5.00 MYAH Cont.VTI: 1.73 LVOT LVOT Pk Paras: 0.91 LVOT Mn Paras: 0.62 LVOT VTI: 0.18 LVOT Pk Grad: 3.00 LVOT Mn Grad: 2.00 LVOT Diam: 2.00 LVOT Area: 3.14 Diastolic Function MV Pk E: 0.84 MV Pk A: 0.72 E/A: 1.20 E'Medial: 11.20 E/E' Med: 7.50 E' Laterial: 14.00 E/E' Lat: 6.00 Right Ventricle TAPSE (mm): 25.40 TVS' Paras: 9.90 Tricuspid Valve TR Pk Paras: 2.11 TR Pk Grad: 18.00 RA Press: 3.00 RVSP: 21.00 Great Vessels Aorta Ao Root-2D: 2.70 2.0-3.7 cm Ao Asc: 2.80 2.1-3.4 cm Pulmonary Valve PV Pk Paras: 0.88 Peak PV Grad: 3.00 Updated in Other Vendor System with Status of Final Reggie Aldana MD electronically signed on 04/05/2022 3:52:29 PM with status of Final
== END ==
LOC: HO.CARD 08:30
PROVIDERS: Visit Provider Internal Medicine
DX: R53.82 Chronic fatigue, unspecified (principal); R42 Dizziness and giddiness
CPT/HCPCS: 93306

== ENCOUNTER → 2022-04-20 14:14 | Outpatient (BNVA) | payer MEDICAID, SELFPAY | PROVIDERS: PCP Family Medicine; Visit Provider Nurse Practitioner Family | DX: R42 Dizziness and giddiness (principal); I95.1 Orthostatic hypotension; R53.82 Chronic fatigue, unspecified | CPT/HCPCS: 99212 ==